=== PATIENT | female | born 1930 | race Hispanic/Latino ===

== ENCOUNTER 2017-03-01 12:21 | Emergency (ER) | payer MEDICARE ==
[2017-03-01 12:21] VITALS: BMI 25.2
[2017-03-01 12:38] VITALS: RESP 18; TEMP 97.9; O2SAT 97
--- NOTE | 2017-03-01 13:30 | ED PDOC ---
Arrival/HPI - General Chief Complaint: Abnormal Labs Time Seen by Provider: 03/01/17 12:41 Historian: Patient - History of Present Illness Narrative History of Present Illness (Text): 03/01/17 13:00 A 86 year old female, whose past medical history includes anemia, rectal bleeding, and CMV, presents to the emergency department after being sent down by same day surgeon for endoscopy after discovering that her potassium levels were 2.9 and for chronic abdominal cramping. The patient reports she has not eaten anything since Tuesday and is very hungry and is slightly light headed due to not eating. The patient denies any dizziness, fever, or any other complaints at this time. She admits to rectal bleeding, but she notes this is a condition that has been going on for the last 5 years, but has reoccurred within the last 3 weeks. PMD: Dr. Peterson Time/Duration: Prior to Arrival Symptom Onset: Sudden Context: Other (same day surgery ) Past Medical History - Provider Review Nursing Documentation Reviewed: Yes - Infectious Disease Hx of Infectious Diseases: None - Tetanus Immunization Tetanus Immunization: Unknown - Cardiac Hx Pacemaker: No - Pulmonary Hx Respiratory Disorders: Yes - Neurological Hx Paralysis: No - Renal Hx Renal Disorder: No - Endocrine/Metabolic Hx Endocrine Disorders: No - Hematological/Oncological Hx Blood Transfusions: Yes Hx Blood Transfusion Reaction: No - Integumentary Hx Dermatological Disorder: No - Musculoskeletal/Rheumatological Hx Musculoskeletal Disorders: No - Gastrointestinal Hx Gastrointestinal Disorders: Yes (RECTAL BLEED) Hx Colitis: Yes (ulcerative) - Genitourinary/Gynecological Hx Genitourinary Disorders: No - Psychiatric Hx Emotional Abuse: No Hx Physical Abuse: No Hx Substance Use: No - Surgical History Hx Orthopedic Surgery: Yes (bilateral wrist, pelvis) Other/Comment: cataract sx - Anesthesia Hx Anesthesia Reactions: No Hx Malignant Hyperthermia: No - Suicidal Assessment Feels Threatened In Home Enviroment: No Family/Social History - Physician Review Nursing Documentation Reviewed: Yes Family/Social History: No Known Family HX Smoking Status: Former Smoker Hx Alcohol Use: Yes (SOCIALLY) Hx Substance Use: No Allergies/Home Meds Allergies/Adverse Reactions: Allergies No Known Allergies Allergy (Verified 03/01/17 12:27) Home Medications: Home Meds Medication Instructions Recorded Confirmed Atorvastatin Calcium [Lipitor] 10 mg PO DAILY 07/15/11 03/02/17 Multivit,Calc,Mins/Iron/Folic 1 tab PO DAILY 07/09/14 03/02/17 [One-A-Day Women's Tablet] Ubidecarenone [Coq-10] 200 mg PO DAILY 05/15/15 03/02/17 Carbamazepine [Carbamazepine] 100 mg PO DAILY 02/28/17 03/02/17 Cyanocobalamin [Vitamin B12] 500 mg PO DAILY 02/28/17 03/02/17 Gabapentin [Neurontin] 300 mg PO PRN PRN 02/28/17 03/02/17 Mesalamine [Delzicol] 1,200 mg PO TID 02/28/17 03/02/17 Omeprazole [Omeprazole] 20 mg PO DAILY 02/28/17 03/01/17 Prednisone [Deltasone] 20 mg PO DAILY 02/28/17 03/02/17 Potassium Chloride [K-Dur 20] 20 meq PO DAILY 03/02/17 03/02/17 Review of Systems - Physician Review All systems were reviewed & negative as marked: Yes - Review of Systems Constitutional: absent: Fevers Gastrointestinal: Abdominal Pain, Other (rectal bleeding ) Neurological: Other (lightheaded). absent: Dizziness Physical Exam - Physical Exam Narrative Physical Exam (Text): 03/01/17 13:30 Head: Atraumatic. Normocephalic. Eyes: PERRL. EOMI. Conjunctivae are not pale. ENT: Mucous membranes are moist and intact. Oropharynx is clear and symmetric. Neck: Supple. Full ROM. No JVD. No lymphadenopathy. Cardiovascular: Regular rate. Regular rhythm. Pulmonary/Chest: No evidence of respiratory distress. Clear to auscultation bilaterally. Abdominal: Soft and non-distended. There is no tenderness. No rebound, guarding, or rigidity. No organomegaly. Good bowel sounds. Back: No CVA tenderness. No midline tenderness. Extremities: No edema. No cyanosis. No clubbing. Full range of motion in all extremities. No calf tenderness. Skin: Skin is warm and dry. No petechiae. No purpura. Neurological: Alert, awake, and oriented. Motor and sensory exam intact. No meningeal signs. Psychiatric: Good eye contact. Normal interaction, affect, and behavior. Denies depression. Vital Signs Temp Pulse Resp BP Pulse Ox 03/01/17 15:39 74 18 115/71 97 03/01/17 13:55 79 18 113/74 97 03/01/17 12:35 97.9 F 89 18 111/70 97 Medical Decision Making ED Course and Treatment: 03/01/17 13:30 Patient's history reviewed with RICHARD Reyes, prior to arrival. Patient noted to be hypokalemic and was sent for evaluation. She is currently CV stable, not hypotensive or tachycardic. She has no abdominal pain on exam. No acute heavy rectal bleeding noted. Treatment plan reviewed with patient. K repeated and reviewed. IV KCl and oral Kdur ordered. Patient with repeat K ordered and reviewed. Prior to being able to re-evaluate the patient, patient eloped from the ED prior to being able to review treatment plan with patient. She was noted to be ambulatory, asymptomatic as per nursing staff. She did not wish to stay for review of her treatment plan and labs. - Lab Interpretations Lab Results: 03/01/17 13:30 03/01/17 16:45 Lab Results 03/01/17 16:45: Potassium 3.2 L 03/01/17 13:30: Sodium 141, Potassium 3.0 L, Chloride 109 H, Carbon Dioxide 25, Anion Gap 10, BUN 10, Creatinine 0.7, Est GFR ( Amer) > 60, Est GFR (Non- Af Amer) > 60, Random Glucose 93, Calcium 8.4, Total Bilirubin 0.2, AST 20, ALT 26, Alkaline Phosphatase 85, Total Protein 6.6, Albumin 3.0, Globulin 3.6, Albumin/Globulin Ratio 0.8 L 03/01/17 13:30: WBC 8.4, RBC 3.41 L, Hgb 9.4 L, Hct 29.4 L, MCV 86.2, MCH 27.6, MCHC 32.0, RDW 15.4 H, Plt Count 416, MPV 8.4, Gran % 51.1, Lymph % (Auto) 41.9 H, [place] % (Auto) 5.6, Eos % (Auto) 0.8 L, Baso % (Auto) 0.6, Gran # 4.27, Lymph # 3.5 H, [place] # 0.5, Eos # 0.1, Baso # 0.05 I have reviewed the lab results: Yes - Medication Orders Current Medication Orders: Discontinued Medications Potassium Chloride (Potassium Chloride 10 Meq/100 Ml) 10 meq in 100 mls @ 50 mls/hr IVPB ONCE ONE Stop: 03/01/17 16:14 Last Admin: 03/01/17 14:51 Dose: 50 mls/hr eMAR Start Stop Document 03/01/17 14:51 HI (Rec: 03/01/17 14:51 [place] [facility] [id number][place] Intravenous Solution Start Date 03/01/17 Start Time 14:51 Potassium Chloride (K-Dur 20 Meq Er Tab) 40 meq PO STAT STA Stop: 03/01/17 15:50 Last Admin: 03/01/17 16:16 Dose: 40 meq - Scribe Statement The provider has reviewed the documentation as recorded by the Jagjit De Luna Provider Scribe Attestation: All medical record entries made by the Scribe were at my direction and personally dictated by me. I have reviewed the chart and agree that the record accurately reflects my personal performance of the history, physical exam, medical decision making, and the department course for this patient. I have also personally directed, reviewed, and agree with the discharge instructions and disposition. Disposition/Present on Arrival - Present on Arrival Any Indicators Present on Arrival: No History of DVT/PE: No History of Uncontrolled Diabetes: No Urinary Catheter: No History of Decub. Ulcer: No History Surgical Site Infection Following: None - Disposition Have Diagnosis and Disposition been Completed?: Yes Diagnosis: Hypokalemia, Anemia Disposition: ELOPEMENT - ER ONLY Disposition Time: 17:00 Patient Plan: Discharge Condition: GOOD Referrals: Matt Peterson MD [Primary Care Provider] - Follow up with primary Forms: [employer] ([place]ian)
[2017-03-01 13:38] LABS: BASO # 0.05 K/mm3 (0.0-2.0); BASO % 0.6 % (0.0-3.0); EOS # 0.1 (0.0-0.7); EOS % 0.8 % (1.5-5.0); GRAN # 4.27 (1.4-6.5); GRAN % 51.1 % (50.0-68.0); HEMATOCRIT 29.4 % (36.0-48.0); LYMPH # 3.5 (1.2-3.4); LYMPH % 41.9 % (22.0-35.0); MEAN CELL VOLUME 86.2 fl (80.0-105.0); MEAN CORPUSCULAR HEMOGLOBIN 27.6 pg (25.0-35.0); MEAN PLATELET VOLUME 8.4 fl (7.0-11.0); MONO # 0.5 (0.1-0.6); MONO % 5.6 % (1.0-6.0); RED CELL DISTRIBUTION WIDTH 15.4 % (11.5-14.5); WHITE BLOOD COUNT 8.4 10^3/ul (4.5-11.0)
[2017-03-01 14:14] LABS: ALB/GLOB RATIO 0.8 (1.1-1.8); ALKALINE PHOSPHATASE 85 U/L (38-126); ALT/SGPT 26 U/L (7-56); AST/SGOT 20 U/L (14-36); BILIRUBIN,TOTAL 0.2 mg/dL (0.2-1.3); BLOOD UREA NITROGEN 10 mg/dL (7-21); CALCIUM 8.4 mg/dL (8.4-10.5); CARBON DIOXIDE 25 mmol/L (21-33); CHLORIDE 109 mmol/L (98-107); GFR AFRICAN-AMERICAN > 60; GLUCOSE,RANDOM 93 mg/dL (70-110); SODIUM 141 mmol/L (132-148); TOTAL PROTEIN 6.6 g/dL (5.8-8.3)
[2017-03-01 15:40] VITALS: BP 115/71; PULSE 74
[2017-03-01] MEDS ORDERED: Potassium Chloride 20 mEq ER Tab PO STA (15:49)
--- NOTE | 2017-03-02 10:35 | CARD ---
APPROVED REPORT EKG Measurement Heart [id number] <Conclusion> Normal sinus rhythm Low voltage QRS Borderline ECG
== END 2017-03-01 18:00 | disposition left against medical advice (07) ==
LOC: ED 12:21
DX: E87.6 Hypokalemia (principal); D64.9 Anemia, unspecified
CPT/HCPCS: 80053; 84132; 85025; 93005; 99282; J3480

== ENCOUNTER 2017-03-02 13:49 | Day surgery (SDC) | payer MEDICARE ==
[2017-03-01 12:21] VITALS: BMI 25.2
[2017-03-02 14:36] VITALS: O2SAT 97
[2017-03-02] MEDS ORDERED: Lidocaine 2% Jelly (30 ml) ONE (14:45)
[2017-03-02 16:03] VITALS: BP 138/74; PULSE 90; RESP 18; TEMP 98
== END 2017-03-02 16:37 | disposition home or self-care (01) ==
LOC: OPSURG 13:49 → ENDO 13:49 → OPSURG 16:37
PROVIDERS: ATTEND Internal Medicine Gastroenterology
DX: K51.011 Ulcerative (chronic) pancolitis with rectal bleeding (principal); K64.8 Other hemorrhoids; K64.4 Residual hemorrhoidal skin tags

== ENCOUNTER 2017-03-22 09:13 | Inpatient (IN) | payer MEDICARE ==
[2017-03-22] MEDS ORDERED: Sodium Chloride 0.9% 1,000 ML IV STA (09:51)
--- NOTE | 2017-03-22 09:57 | ED PDOC ---
Arrival/HPI - General Chief Complaint: Abdominal Pain Time Seen by Provider: 03/22/17 09:21 Historian: Patient - History of Present Illness Narrative History of Present Illness (Text): 03/22/17 09:47 A 86 year old female, whose past medical history includes anemia, rectal bleeding, shingles, and CMV, presents to the emergency department complaining of diarrhea for 2 weeks. Patient reports she was directed by Dr. Shrestha to go to the ER. She describes diarrhea as watery, sometimes brown-colored or bloody. States experiencing nausea whenever going to use the bathroom and yesterday had weakness. Patient denies any fever, abdominal pain, back pain, dysuria, or any other complaints. Also, patient mentions no longer taking steroids. PMD: Dr. Peterson GI: Dr Shrestha Past Medical History - Provider Review Nursing Documentation Reviewed: Yes - Infectious Disease Hx of Infectious Diseases: None - Tetanus Immunization Tetanus Immunization: Unknown - Cardiac Hx Pacemaker: No - Pulmonary Hx Respiratory Disorders: Yes - Neurological Other/Comment: Shigles - Renal Hx Renal Disorder: No - Endocrine/Metabolic Hx Endocrine Disorders: No - Hematological/Oncological Hx Blood Transfusions: Yes Hx Blood Transfusion Reaction: No - Integumentary Hx Dermatological Disorder: No - Musculoskeletal/Rheumatological Hx Musculoskeletal Disorders: No - Gastrointestinal Hx Gastrointestinal Disorders: Yes (RECTAL BLEED) Hx Colitis: Yes (ulcerative) - Genitourinary/Gynecological Hx Genitourinary Disorders: No - Psychiatric Hx Emotional Abuse: No Hx Physical Abuse: No Hx Substance Use: No - Surgical History Hx Orthopedic Surgery: Yes (bilateral wrist, pelvis) Other/Comment: cataract sx - Anesthesia Hx Anesthesia Reactions: No Hx Malignant Hyperthermia: No - Suicidal Assessment Feels Threatened In Home Enviroment: No Family/Social History - Physician Review Nursing Documentation Reviewed: Yes Family/Social History: No Known Family HX Smoking Status: Former Smoker Hx Alcohol Use: Yes (SOCIALLY) Frequency of alcohol use: Socially Hx Substance Use: No Allergies/Home Meds Allergies/Adverse Reactions: Allergies No Known Allergies Allergy (Verified 03/22/17 15:43) Home Medications: Home Meds Medication Instructions Recorded Confirmed Atorvastatin Calcium [Lipitor] 10 mg PO DAILY 07/15/11 03/22/17 Multivit,Calc,Mins/Iron/Folic 1 tab PO DAILY 04/28/15 01/09/18 [One-A-Day Women's Tablet] Ubidecarenone [Coq-10] 200 mg PO DAILY 05/15/15 03/22/17 Carbamazepine [Carbamazepine] 100 mg PO DAILY 02/28/17 03/22/17 Cyanocobalamin [Vitamin B12] 500 mg PO DAILY 02/28/17 03/22/17 Gabapentin [Neurontin] 300 mg PO PRN PRN 02/28/17 03/22/17 Mesalamine [Delzicol] 1,200 mg PO TID 02/28/17 03/22/17 Review of Systems - Physician Review All systems were reviewed & negative as marked: Yes - Review of Systems Constitutional: absent: Fevers Gastrointestinal: Diarrhea (watery, sometimes brown-colored or bloody), Nausea ( only when going to use the bathroom according to patient). absent: Abdominal Pain Genitourinary Female: absent: Dysuria Musculoskeletal: absent: Back Pain Physical Exam Vital Signs Reviewed: Yes Vital Signs Temp Pulse Resp BP Pulse Ox 03/22/17 12:00 78 16 117/60 98 03/22/17 09:22 97.7 F 98 H 18 103/56 L 98 Temperature: Afebrile Blood Pressure: Normal Pulse: Regular Respiratory Rate: Normal Appearance: Positive for: Well-Appearing Pain Distress: None Mental Status: Positive for: Alert and Oriented X 3 - Systems Exam Pupils: Present: PERRL Extroacular Muscles: Present: EOMI Conjunctiva: Present: Normal Mouth: Present: Moist Mucous Membranes Neck: Present: Normal Range of Motion Respiratory/Chest: Present: Clear to Auscultation, Good Air Exchange. No: Respiratory Distress, Accessory Muscle Use Cardiovascular: Present: Regular Rate and Rhythm, Normal S1, S2. No: Murmurs Abdomen: Present: Normal Bowel Sounds. No: Tenderness, Distention, Peritoneal Signs Rectal: Present: Other (guaiac positive). No: Occult Blood, Hemorrhoids Back: Present: Normal Inspection Upper Extremity: Present: Normal Inspection. No: Cyanosis, Edema Lower Extremity: Present: Normal Inspection. No: Edema Neurological: Present: GCS=15, CN II-XII Intact, Speech Normal Skin: Present: Warm, Dry, Normal Color. No: Rashes Psychiatric: Present: Alert, Oriented x 3, Normal Insight, Normal Concentration Medical Decision Making ED Course and Treatment: 03/22/17 09:52 Impression: 86 year old female with watery diarrhea. Physical exam shows patient appears pale; nontender abdomen; rectal exam: guaiac positive, no occult blood, no hemorrhoids (ethics instructor clyde May). Differential Diagnosis included but are not limited to: GI Bleed vs. Ulcer Colitis Plan: -- Labs -- Urinalysis Zofran -- Protonix -- IV Fluids -- Reassess and disposition Prior Visits: Notes and results from previous visits were reviewed. Patient was last seen in the emergency department on 03/01/2017 was sent down by same day surgeon for endoscopy after discovering that her potassium levels were 2.9 and for chronic abdominal cramping. Progress Notes: 03/22/17 12:12. Hgb reviewed and 8. Patient's rectal exam was guaic positive. No hemorrhoid. Licensed Social Worker Raysa. Case was discussed with Dr. Shrestha, GI specialist, who knows patient well and he states he will have to order medications for her ulcerative colitis and possible a blood transfusion. Case was discussed with Dr. Espinoza , Hospitalist, who will admit under her service. - Lab Interpretations Lab Results: 03/22/17 10:10 03/22/17 10:51 Lab Results 03/22/17 10:51: Sodium 138, Potassium 3.5 L, Chloride 106, Carbon Dioxide 24, Anion Gap 11, BUN 9, Creatinine 0.9, Est GFR ( Amer) > 60, Est GFR (Non- Af Amer) 60, Random Glucose 90, Calcium 8.6, Total Bilirubin 0.3, AST 30, ALT 28 , Alkaline Phosphatase 106, Total Protein 6.3, Albumin 3.0, Globulin 3.3, Albumin/Globulin Ratio 0.9 L, Lipase 54 03/22/17 10:10: Blood Type O POSITIVE, Antibody Screen Negative, Crossmatch See Detail, BBK History Checked Patient has bt 03/22/17 10:10: PT 10.9, INR 0.95, APTT 28.0 03/22/17 10:10: WBC 6.6 D, RBC 3.37 L, Hgb 8.9 L, Hct 28.5 L, MCV 84.6, MCH 26.4, MCHC 31.2, RDW 15.8 H, Plt Count 365, MPV 9.1, Gran % 53.7, Lymph % (Auto ) 33.7, [place] % (Auto) 9.8 H, Eos % (Auto) 2.0, Baso % (Auto) 0.8, Gran # 3.57, Lymph # 2.2, [place] # 0.7 H, Eos # 0.1, Baso # 0.05 I have reviewed the lab results: Yes - Medication Orders Current Medication Orders: Atorvastatin Calcium (Lipitor) 10 mg PO DIN [facility] Last Admin: 03/23/17 17:47 Dose: 10 mg Carbamazepine (Tegretol) 100 mg PO BID KARTHIKEYAN PRN Reason: Protocol Last Admin: 03/24/17 09:35 Dose: 100 mg Gabapentin (Neurontin) 600 mg PO BID KARTHIKEYAN PRN Reason: Protocol Last Admin: 03/24/17 09:33 Dose: 600 mg Hydrocortisone Sodium Succinate (Solu-Cortef) 100 mg IVP BID [facility] Last Admin: 03/24/17 09:34 Dose: 100 mg IVP Administration Document 03/24/17 09:34 BIR (Rec: 03/24/17 09:34 BIR [id number]) Charges for Administration # of IVP Administrations 1 Sodium Chloride (Sodium Chloride 0.9%) 1,000 mls @ 75 mls/hr IV .[id number] [facility] Last Admin: 03/23/17 23:38 Dose: 75 mls/hr eMAR Start Stop Document 03/23/17 23:38 FC (Rec: 03/23/17 23:39 FC [id number]) Intravenous Solution Start Date 03/23/17 Start Time 23:39 End Date 03/24/17 Potassium Chloride (Potassium Chloride 10 Meq/100 Ml) 10 meq in 100 mls @ 50 mls/hr IVPB Q2H [facility] Stop: 03/24/17 13:14 Mesalamine (Asacol Hd 800mg) 800 mg PO QID [facility] Last Admin: 03/24/17 09:31 Dose: 800 mg Non-Formulary Medication (Ubidecarenone [Coq-10]) 200 mg PO DAILY [facility] Last Admin: 03/23/17 10:25 Dose: Non-Formulary Medication (Multivit,Calc,Mins/Iron/Folic [One-A-Day Women's Tablet]) 1 tab PO DAILY [facility] Last Admin: 03/23/17 10:23 Dose: Pantoprazole Sodium (Protonix Inj) 40 mg IVP DAILY [facility] Last Admin: 03/24/17 09:34 Dose: 40 mg IVP Administration Document 03/24/17 09:34 BIR (Rec: 03/24/17 09:34 BIR [id number]) Charges for Administration # of IVP Administrations 1 Discontinued Medications Atorvastatin Calcium (Lipitor) 10 mg PO DAILY KARTHIKEYAN Atorvastatin Calcium (Lipitor) 10 mg PO DIN KARTHIKEYAN Carbamazepine (Tegretol) 100 mg PO DAILY KARTHIKEYAN PRN Reason: Protocol Last Admin: 03/23/17 16:18 Dose: Carbamazepine (Tegretol) 100 mg PO DAILY KARTHIKEYAN PRN Reason: Protocol Last Admin: 03/23/17 10:14 Dose: 100 mg Behavioural Document 03/23/17 10:14 RV (Rec: 03/23/17 10:15 RV [facility] [id number]) Maintenance Maintenance Dose Yes Nonmedicinal Nonmedicinal Interventions Therapeutic Communication Behavior Behavior for Medication: Anxiety Re-Assess: Reassess Psych Meds Document 03/23/17 11:14 RV (Rec: 03/23/17 13:43 RV [id number]) Reassess Psych Med Effective Gabapentin (Neurontin) 300 mg PO PRN PRN; Protocol PRN Reason: Pain, moderate (4-7) Gabapentin (Neurontin) 300 mg PO TID PRN; Protocol PRN Reason: Neuralgia Last Admin: 03/22/17 22:26 Dose: 300 mg Gabapentin (Neurontin) 300 mg PO TID PRN; Protocol PRN Reason: Neuralgia Last Admin: 03/23/17 10:24 Dose: 300 mg Behavioural Document 03/23/17 10:24 RV (Rec: 03/23/17 10:24 RV [facility] [id number]) Maintenance Maintenance Dose Yes Nonmedicinal Nonmedicinal Interventions Redirect Therapeutic Communication Activity Behavior Behavior for Medication: Anxiety Re-Assess: Reassess Psych Meds Document 03/23/17 11:24 RV (Rec: 03/23/17 13:43 RV [id number]) Reassess Psych Med Effective Hydrocortisone Sodium Succinate (Solu-Cortef) 100 mg IVP BID [facility] Last Admin: 03/23/17 16:18 Dose: Hydrocortisone Sodium Succinate (Solu-Cortef) 100 mg IVP STAT STA Stop: 03/22/17 14:26 Hydrocortisone Sodium Succinate (Solu-Cortef) 100 mg IVP BID [facility] Last Admin: 03/23/17 16:17 Dose: Sodium Chloride (Sodium Chloride 0.9%) 1,000 mls @ 100 mls/hr IV .Q10H STA Stop: 03/22/17 19:50 Last Admin: 03/22/17 10:03 Dose: 100 mls/hr eMAR Start Stop Document 03/22/17 10:03 [id number] (Rec: 03/22/17 10:04 ANNMARIE BEARD-PC) Intravenous Solution Start Date 03/22/17 Start Time 10:00 End Date 03/22/17 End time 11:00 Total Infusion Time 60 Sodium Chloride (Sodium Chloride 0.9%) 1,000 mls @ 75 mls/hr IV .[id number] [facility] Last Admin: 03/23/17 10:16 Dose: 75 mls/hr eMAR Start Stop Document 03/23/17 10:16 RV (Rec: 03/23/17 10:16 RV [id number]) Intravenous Solution Start Date 03/23/17 Start Time 10:16 Non-Formulary Medication (Multivit,Calc,Mins/Iron/Folic [One-A-Day Women's Tablet]) 1 tab PO DAILY [facility] Last Admin: 03/23/17 10:16 Dose: Non-Formulary Medication (Ubidecarenone [Coq-10]) 200 mg PO DAILY [facility] Last Admin: 03/23/17 10:17 Dose: Ondansetron HCl (Zofran Inj) 4 mg IVP STAT STA Stop: 03/22/17 09:52 Last Admin: 03/22/17 10:04 Dose: 4 mg IVP Administration Document 03/22/17 10:04 ANNMARIE (Rec: 03/22/17 10:04 ANNMARIE LOMAX) Charges for Administration # of IVP Administrations 1 Pantoprazole Sodium (Protonix Inj) 40 mg IVP STAT STA Stop: 03/22/17 09:52 Last Admin: 03/22/17 10:04 Dose: 40 mg IVP Administration Document 03/22/17 10:04 ANNMARIE (Rec: 03/22/17 10:04 ANNMARIE LOMAX) Charges for Administration # of IVP Administrations 1 Pantoprazole Sodium (Protonix Inj) 40 mg IVP DAILY [facility] Last Admin: 03/23/17 16:17 Dose: Pneumococcal Polyvalent Vaccine (Pneumovax 23 Vaccine) 0.5 ml IM .ONCE ONE Stop: 03/22/17 17:28 Potassium Chloride (K-Dur 20 Meq Er Tab) 40 meq PO STAT STA Stop: 03/22/17 12:03 Last Admin: 03/22/17 12:24 Dose: 40 meq Potassium Chloride (K-Dur 20 Meq Er Tab) 40 meq PO STAT STA Stop: 03/23/17 11:31 Last Admin: 03/23/17 11:48 Dose: 40 meq Potassium Chloride (K-Dur 20 Meq Er Tab) 40 meq PO STAT STA Stop: 03/24/17 09:16 Last Admin: 03/24/17 09:32 Dose: 40 meq - Scribe Statement The provider has reviewed the documentation as recorded by the Clyde Lima Provider Scribe Attestation: All medical record entries made by the Elsieibleeanna were at my direction and personally dictated by me. I have reviewed the chart and agree that the record accurately reflects my personal performance of the history, physical exam, medical decision making, and the department course for this patient. I have also personally directed, reviewed, and agree with the discharge instructions and disposition. Disposition/Present on Arrival - Present on Arrival Any Indicators Present on Arrival: No History of DVT/PE: No History of Uncontrolled Diabetes: No Urinary Catheter: No History of Decub. Ulcer: No History Surgical Site Infection Following: None - Disposition Have Diagnosis and Disposition been Completed?: Yes Diagnosis: Rectal bleeding, Anemia Disposition: HOSPITALIZED Disposition Time: 12:12 Patient Plan: Admission Condition: FAIR
[2017-03-22 10:34] LABS: BASO # 0.05 K/mm3 (0.0-2.0); BASO % 0.8 % (0.0-3.0); EOS # 0.1 (0.0-0.7); GRAN # 3.57 (1.4-6.5); GRAN % 53.7 % (50.0-68.0); HEMOGLOBIN 8.9 g/dL (12.0-16.0); LYMPH # 2.2 (1.2-3.4); LYMPH % 33.7 % (22.0-35.0); MEAN CELL VOLUME 84.6 fl (80.0-105.0); MEAN CORPUSCULAR HEMOGLOBIN 26.4 pg (25.0-35.0); MEAN CORPUSCULAR HGB CONC 31.2 g/dl (31.0-37.0); MEAN PLATELET VOLUME 9.1 fl (7.0-11.0); MONO # 0.7 (0.1-0.6); MONO % 9.8 % (1.0-6.0); RBC 3.37 10^6/uL (3.5-6.1); RED CELL DISTRIBUTION WIDTH 15.8 % (11.5-14.5); WHITE BLOOD COUNT 6.6 10^3/ul (4.5-11.0)
[2017-03-22 10:48] LABS: INR 0.95 (0.93-1.08); PROTHROMBIN TIME 10.9 SECONDS (9.4-12.5)
[2017-03-22 11:17] LABS: ALB/GLOB RATIO 0.9 (1.1-1.8); ALT/SGPT 28 U/L (7-56); AST/SGOT 30 U/L (14-36); BLOOD UREA NITROGEN 9 mg/dL (7-21); CALCIUM 8.6 mg/dL (8.4-10.5); GFR AFRICAN-AMERICAN > 60; GFR NON-AFRICAN AMERICAN 60; LIPASE 54 U/L (23-300)
[2017-03-22] MEDS ORDERED: Potassium Chloride 20 mEq ER Tab PO STA (12:02)
[2017-03-22] MEDS: Sodium Chloride 0.9% 1,000 ML IV SCH (13:17)
[2017-03-22 13:37] LABS: URINE BILIRUBIN NEGATIVE (NEGATIVE); URINE BLOOD TRACE-INTACT (NEGATIVE); URINE GLUCOSE (UA) NEGATIVE (NEGATIVE); URINE LEUKOCYTE ESTERASE LARGE Leu/uL (NEGATIVE); URINE NITRATE NEGATIVE (NEGATIVE); URINE PROTEIN NEGATIVE mg/dL (<30 mg/dL); URINE UROBILINOGEN 0.2 E.U./dL (<1 E.U./dL)
[2017-03-22 13:39] LABS: URINE APPEARANCE SL CLOUDY (CLEAR); URINE COLOR YELLOW (YELLOW)
[2017-03-22 13:50] LABS: URINE BACTERIA FEW (NEG); URINE RBC 0 - 2 /hpf (0-2); URINE WBC 20 - 25 /hpf (0-6)
[2017-03-22] MEDS ORDERED: MESALAMINE 1200 MG PO SCH ×2 (14:00)
--- NOTE | 2017-03-22 14:15 | CP.PCM.HP ---
<Alhaji Schwarz - Last Filed: 03/22/17 14:09> History of Present Illness - History of Present Illness History of Present Illness: CC: diarrhea, BRBPR, fatigue Pt is an 86 yo female with PMH of ulcerative colitis, c. diff colitis, CMV colitis, PNA, HLD, postherpetic neuralgia presents to ED as instructed by Dr. Shrestha due to a 2 week history of increasing diarrhea, fatigue and BRBPR. Pt states that she chronically has diarrhea and has multiple episodes a day, requiring her to wear adult diapers. Pt states that recently she has had drops and clots of blood in her diarrhea as well, which has also occurred in the past. Pt admits to some nausea and abdominal pain, but is relieved when she has a bowel movement. Pt complains of overall weakness and fatigue over the last 3 months with unintentional 10 lbs weight loss. Pt admits to chills, but denies CP , SOB, fever, constipation, MENENDEZ, or dizziness. PMD: [place] PMH: ulcerative colitis, c. diff colitis, CMV colitis, PNA, HLD, postherpetic neuralgia PSH: B/L wrist surgery, cataracts All: NKDA FHx: Colon CA SH: Denies tobacco, EtOH, and illicit drug use Medications: Reviewed as per MAR Present on Admission - Present on Admission Any Indicators Present on Admission: No Review of Systems - Review of Systems Review of Systems: 12 point ROS reviewed and is negative other than what is stated in HPI. Past Patient History - Infectious Disease Hx of Infectious Diseases: None - Tetanus Immunizations Tetanus Immunization: Unknown - Past Social History Smoking Status: Former Smoker - CARDIAC Hx Pacemaker: No - PULMONARY Hx Respiratory Disorders: Yes - NEUROLOGICAL Other/Comment: Shigles - RENAL Hx Chronic Kidney Disease: No - ENDOCRINE/METABOLIC Hx Endocrine Disorders: No - HEMATOLOGICAL/ONCOLOGICAL Hx Blood Transfusions: Yes Hx Blood Transfusion Reaction: No - INTEGUMENTARY Hx Dermatological Problems: No - MUSCULOSKELETAL/RHEUMATOLOGICAL Hx Musculoskeletal Disorders: No - GASTROINTESTINAL Hx Gastrointestinal Disorders: Yes (RECTAL BLEED) Hx Colitis: Yes (ulcerative) - GENITOURINARY/GYNECOLOGICAL Hx Genitourinary Disorders: No - PSYCHIATRIC Hx Emotional Abuse: No Hx Physical Abuse: No Hx Substance Use: No - SURGICAL HISTORY Hx Orthopedic Surgery: Yes (bilateral wrist, pelvis) Other/Comment: cataract sx - ANESTHESIA Hx Anesthesia Reactions: No Hx Malignant Hyperthermia: No Meds Allergies/Adverse Reactions: Allergies Allergy/AdvReac Type Severity Reaction Status Date / Time No Known Allergies Allergy Verified 03/22/17 15:43 Physical Exam - Constitutional Appears: No Acute Distress - Head Exam Head Exam: NORMAL INSPECTION - Eye Exam Eye Exam: Normal appearance - ENT Exam ENT Exam: Normal Exam - Neck Exam Neck exam: Positive for: Normal Inspection - Respiratory Exam Respiratory Exam: Clear to Auscultation Bilateral. absent: Rales, Rhonchi, Wheezes - Cardiovascular Exam Cardiovascular Exam: RRR, +S1, +S2. absent: Diastolic murmur, Gallop, Rubs, Systolic Murmur - GI/Abdominal Exam GI & Abdominal Exam: Soft. absent: Distended, Guarding, Rebound, Tenderness - Extremities Exam Extremities exam: Positive for: normal inspection - Back Exam Back exam: NORMAL INSPECTION - Neurological Exam Neurological exam: Alert, Oriented x3 - Psychiatric Exam Psychiatric exam: Normal Affect, Normal Mood - Skin Skin Exam: Dry, Intact, Normal Color, Warm Results - Vital Signs Recent Vital Signs: Last Vital Signs Temp 97.7 F 03/22/17 09:22 Pulse 78 03/22/17 12:00 Resp 16 03/22/17 12:00 BP 117/60 03/22/17 12:00 Pulse Ox 98 03/22/17 12:00 - Labs Result Diagrams: 03/22/17 10:10 03/22/17 10:51 Labs: Laboratory Results - last 24 hr 03/22/17 13:33 Urine Color Yellow Urine Appearance Sl cloudy Urine pH 6.0 Ur Specific [place] 1.010 Urine Protein Negative Urine Glucose (UA) Negative Urine Ketones Negative Urine Blood Trace-intact H Urine Nitrate Negative Urine Bilirubin Negative Urine Urobilinogen 0.2 Ur Leukocyte Esterase Large H Urine RBC 0 - 2 Urine WBC 20 - 25 Ur Epithelial Cells 1 - 3 Urine Bacteria Few Assessment & Plan - Assessment and Plan (Free Text) Assessment: Pt is an 86 yo F with PMH of ulcerative colitis, c. diff colitis, CMV colitis, PNA, HLD, postherpetic neuralgia admitted for evaluation and treatment for anemia possibly 2/2 ulcerative colitis. Plan: 1. Anemia - Hgb 8.9 - Likely 2/2 chronic disease - Cont to monitor, transfuse to keep Hgb > 7 - Type and screen, patient consented 2. Colitis - H/o CMV colitis, ulcerative colitis, c. diff colitis - Cont home medications - Stool c. diff and cultures ordered - GI consulted - ID consulted - NPO - IVF 3. HLD - Cont Lipitor 4. H/o HSV, postherpetic neuralgia - Neuro consulted - Cont carbemazepine, neurontin GI/DVT PPx - Protonix - SCDs Pt seen and discussed in detail with Dr. Espinoza. Omero Schwarz, PGY1 <Demetris Espinoza - Last Filed: 03/22/17 17:59> Results - Vital Signs Recent Vital Signs: Last Vital Signs Temp 97.7 F 03/22/17 16:52 Pulse 78 03/22/17 16:52 Resp 16 03/22/17 16:52 BP 117/60 03/22/17 16:52 Pulse Ox 98 03/22/17 12:00 - Labs Result Diagrams: 03/22/17 10:10 03/22/17 10:51 Labs: Laboratory Results - last 24 hr 03/22/17 13:33 Urine Color Yellow Urine Appearance Sl cloudy Urine pH 6.0 Ur Specific [place] 1.010 Urine Protein Negative Urine Glucose (UA) Negative Urine Ketones Negative Urine Blood Trace-intact H Urine Nitrate Negative Urine Bilirubin Negative Urine Urobilinogen 0.2 Ur Leukocyte Esterase Large H Urine RBC 0 - 2 Urine WBC 20 - 25 Ur Epithelial Cells 1 - 3 Urine Bacteria Few Attending/Attestation - Attestation I have personally seen and examined this patient.: Yes I have fully participated in the care of the patient.: Yes I have reviewed all pertinent clinical information: Yes Notes (Text): 03/22/17 17:55 attending note; Patient seen and examined with resident in ER. patient is a 86-year-old female with past medical history of ulcerative colitis , c. diff colitis, CMV colitis, ammonia, hyperlipidemia, shingles,,postherpetic neuralgia is getting admitted for increasing diarrhea and rectal bleeding. Patient was evaluated by GI Dr. Shrestha yesterday. Patient is also complaining of generalized weakness and shortness of breath on exertion. Hemoglobin showed 8.9. 1 unit of PRBC transfusion ordered. Ulcerative colitis; started on IV hydrocortisone. Needs outpatient Remicade. continue to monitor for diarrhea closely. Monitor for GI bleed closely. Started on liquid diet. Case discussed with Dr. Shrestha in detail. With a history of CMV colitis and C. difficile colitis; needs strong immunosuppressive therapy as outpatient. ID evaluation requested. Patient with a history of shingles; currently no active lesions. Neurology evaluation before starting Remicade. Case discussed with GI in detail. Upon discharge the patient will follow-up with PMD .
[2017-03-22 17:27] VITALS: BMI 25.0
[2017-03-22] MEDS ORDERED: Pneumococcal 23-Valent Vaccine IM ONE (17:27)
[2017-03-22] MEDS ORDERED: Influenza Vaccine 60 mcg/0.5 mL SYR (4YR UP) IM ONE (17:27)
--- NOTE | 2017-03-22 17:53 | CON ---
DATE: 03/22/2017 CHIEF COMPLAINT: History of postherpetic neuralgia in the face. HISTORY OF PRESENT ILLNESS: This is an 86-year-old woman with history of ulcerative colitis, C. diff colitis, CMV colitis, PNA, hyperlipidemia, and postherpetic neuralgia on the left side of face. She came to the hospital for increased diarrhea, fatigue, and bleeding per rectum and chronic diarrhea multiple episodes, where she was needed to wear adult diapers, had recent drops in her hemoglobin and unintentional loss of weight, so therefore is being evaluated for GI, who was consulted for postherpetic neuralgia. It is okay for her to be on Remicade. She is going to continue on her home medications for her postherpetic neuralgia in terms of gabapentin 600 mg p.o. b.i.d. and Tegretol 100 mg p.o. b.i.d. PAST MEDICAL HISTORY: History of ulcerative colitis, C. diff colitis, CMV colitis, PNA, pneumonia, hyperlipidemia, postherpetic neuralgia, anemia. REVIEW OF SYSTEMS: A 14-point review of systems is negative except as per the HPI. MEDICATIONS: Reviewed by nursing reconciliation sheet. ALLERGIES: NO KNOWN DRUG ALLERGIES. SOCIAL HISTORY: No illicit drug use, smoking, or EtOH abuse. FAMILY HISTORY: Noncontributory. PHYSICAL EXAMINATION: VITAL SIGNS: Temperature 97.7, pulse rate 78, blood pressure 117/60, respiratory rate of 16, and oxygen saturation 98% on room air. GENERAL: The patient is sitting up in bed, in no acute distress. HEENT: Head is atraumatic and normocephalic. PERRLA. Extraocular muscles intact. NECK: Supple. No JVD. No adenopathy noted. LUNGS: Clear to auscultation. No adventitious sounds. HEART: S1 and S2. Normal rate and rhythm. No murmurs, rubs, or gallops. ABDOMEN: Soft, nontender, nondistended. Bowel sounds present. EXTREMITIES: No clubbing, no cyanosis. Peripheral pulses 2+ felt bilaterally. NEUROLOGIC: The patient is alert and oriented to person, place, month and year. Speech is fluent without errors. Cranial nerves II through XII intact. Motor exam; moves all extremities equally. Toes are downgoing bilaterally. Sensory exam: Light touch, pinprick, proprioception, and vibration intact. DTRs are 1+ throughout. LABORATORY DATA: Sodium is 138, potassium 3.5, chloride 106, carbon dioxide 24, BUN 11, creatine 0.9, and random glucose of 90. ASSESSMENT: This is an 86-year-old woman with history of ulcerative colitis, Clostridium difficile colitis, Cytomegalovirus colitis, pneumonia, hyperlipidemia, postherpetic neuralgia. Admitted for evaluation and treatment for anemia possibly secondary to ulcerative colitis. I was consulted for history of postherpetic neuralgia. PLAN: 1. At this time, her postherpetic neuralgia is stable and continue with carbamazepine 100 mg p.o. b.i.d., and Neurontin 600 mg p.o. b.i.d., for neuropathic relief. 2. She is okay for Remicade from a Neuro standpoint for her underlying colitis and continue to monitor her electrolytes and correct accordingly. No further neurological workup needed at this time. Raffaele Raines MD
--- NOTE | 2017-03-22 17:59 | CP.PCM.CON ---
<Tiana Mas - Last Filed: 03/22/17 18:00> History of Present Illness - History of Present Illness History of Present Illness: Seen and examined at the bedside in the ER, chart reviewed. Request for GI consult is acute exacerbation of ulcerative colitis. HPI: This is a 86-year-old female with a long history of ulcerative colitis, CMV , treated with antibiotics, herpes zoster. This patient has been on melasamine and Mp6 for years , was doing well for a while, but the cost of the medication was becoming to much, the patient started becoming noncompliant with taking the medications. This patient was also on Remicade infusion and doing well. She then had contracted herpes zoster and Remicade treatments and medications were discontinued for the time being. The patient was seen in our office yesterday, earlier that morning by her PCP and had complaints of feeling weak, tired and still having multiple episodes of diarrhea. Occasionally noticing blood, came to our office. She experiences nausea only when she has to have a bowel movement. Denies any vomiting or hematemesis. Her appetite has been poor but she is making sure to drink Pedialyte. A few weeks ago the patient was seen in our office with same complaints, stool for C. difficile was done and was negative. She then was scheduled for a flexible sigmoidoscopy, on the day of procedure labs were done and the patient was found to be hypokalemic. She was sent to the emergency room for potassium replacement. The patient return the next day for flex sigmoid evaluation. During this time she was given outpatient treatment with oral steroids. The patient had a flexible sigmoidoscopy on March 02, 2017 the sigmoidscope was advanced to the sigmoid at 20 cm. Was found to have inflammation/congestion erosion and erythema with friability and granulation that was continuous and with circumferential pattern from rectum to the sigmoid, graded as MALTS grade 3, and also found to have internal and external hemorrhoids. Colon biopsy was obtained which showed chronic active colitis with ulceration and reactive epithelial changes but with no dysplasia. CMV pathology was also sent and that was negative. Stool for C. difficile was also obtained during endoscope and was reported to be negative. The patient yesterday was recommended to go to the emergency room but the had to make arrangements for a station operator for her pets. The patient today does complain of feeling weak and tired, very sleepy most of the time and is still having active diarrhea, last bowel movement noted with blood was yesterday. No complaints of shortness of breath or chest pain. On admission her hemoglobin was reported to be 8.9. She does appear weak and pale. Past medical history: Ulcerative colitis, history of CMV, treated with inpatient , Clostridium difficile colitis, hypercholesterolemia, pneumonia, postherpetic neuralgia Surgical history: Cataract surgery and bilateral wrist surgery Social history: Denies EtOH, smoking or recreational drug use Family history: Colon cancer Medications: Reviewed as per MAR Allergies: No known drug allergies ROS: Systems reviewed positive finding see HPI Past Patient History - Infectious Disease Hx of Infectious Diseases: None - Tetanus Immunizations Tetanus Immunization: Unknown - Past Social History Smoking Status: Former Smoker - CARDIAC Hx Pacemaker: No - PULMONARY Hx Respiratory Disorders: Yes - NEUROLOGICAL Other/Comment: Shigles - RENAL Hx Chronic Kidney Disease: No - ENDOCRINE/METABOLIC Hx Endocrine Disorders: No - HEMATOLOGICAL/ONCOLOGICAL Hx Blood Transfusions: Yes Hx Blood Transfusion Reaction: No - INTEGUMENTARY Hx Dermatological Problems: No - MUSCULOSKELETAL/RHEUMATOLOGICAL Hx Musculoskeletal Disorders: No - GASTROINTESTINAL Hx Gastrointestinal Disorders: Yes (RECTAL BLEED) Hx Colitis: Yes (ulcerative) - GENITOURINARY/GYNECOLOGICAL Hx Genitourinary Disorders: No - PSYCHIATRIC Hx Emotional Abuse: No Hx Physical Abuse: No Hx Substance Use: No - SURGICAL HISTORY Hx Orthopedic Surgery: Yes (bilateral wrist, pelvis) Other/Comment: cataract sx - ANESTHESIA Hx Anesthesia Reactions: No Hx Malignant Hyperthermia: No Meds Allergies/Adverse Reactions: Allergies Allergy/AdvReac Type Severity Reaction Status Date / Time No Known Allergies Allergy Verified 03/22/17 15:43 - Medications Medications: Current Medications Atorvastatin Calcium (Lipitor) 10 mg PO DAILY [facility] Carbamazepine (Tegretol) 100 mg PO DAILY [facility] PRN Reason: Protocol Gabapentin (Neurontin) 300 mg PO TID PRN; Protocol PRN Reason: Neuralgia Hydrocortisone Sodium Succinate (Solu-Cortef) 100 mg IVP BID [facility] Sodium Chloride (Sodium Chloride 0.9%) 1,000 mls @ 100 mls/hr IV .Q10H STA Stop: 03/22/17 19:50 Last Admin: 03/22/17 10:03 Dose: 100 mls/hr Sodium Chloride (Sodium Chloride 0.9%) 1,000 mls @ 75 mls/hr IV .[id number] [facility] Last Admin: 03/22/17 13:17 Dose: 75 mls/hr Mesalamine (Asacol Hd 800mg) 800 mg PO QID [facility] Non-Formulary Medication (Multivit,Calc,Mins/Iron/Folic [One-A-Day Women's Tablet]) 1 tab PO DAILY [facility] Non-Formulary Medication (Ubidecarenone [Coq-10]) 200 mg PO DAILY [facility] Pantoprazole Sodium (Protonix Inj) 40 mg IVP DAILY [facility] Physical Exam - Constitutional Appears: No Acute Distress Additional comments: fatigue - Eye Exam Eye Exam: Normal appearance. absent: Scleral icterus - ENT Exam ENT Exam: Mucous Membranes Moist - Neck Exam Neck exam: Positive for: Normal Inspection - Respiratory Exam Respiratory Exam: Clear to Auscultation Bilateral, NORMAL BREATHING PATTERN. absent: Respiratory Distress - Cardiovascular Exam Cardiovascular Exam: +S1, +S2 - GI/Abdominal Exam GI & Abdominal Exam: Soft. absent: Guarding, Normal Bowel Sounds, Organomegaly , Rebound, Tenderness - Extremities Exam Extremities exam: Positive for: pedal pulses present. Negative for: calf tenderness, pedal edema - Neurological Exam Neurological exam: Alert, Oriented x3 - Psychiatric Exam Psychiatric exam: Normal Mood - Skin Skin Exam: Dry, Pallor, Warm Results - Vital Signs Recent Vital Signs: Last Vital Signs Temp 97.7 F 03/22/17 09:22 Pulse 78 03/22/17 12:00 Resp 16 03/22/17 12:00 BP 117/60 03/22/17 12:00 Pulse Ox 98 03/22/17 12:00 - Labs Result Diagrams: 03/22/17 10:10 03/22/17 10:51 Labs: Laboratory Results - last 24 hr 03/22/17 13:33 Urine Color Yellow Urine Appearance Sl cloudy Urine pH 6.0 Ur Specific [place] 1.010 Urine Protein Negative Urine Glucose (UA) Negative Urine Ketones Negative Urine Blood Trace-intact H Urine Nitrate Negative Urine Bilirubin Negative Urine Urobilinogen 0.2 Ur Leukocyte Esterase Large H Urine RBC 0 - 2 Urine WBC 20 - 25 Ur Epithelial Cells 1 - 3 Urine Bacteria Few Assessment & Plan - Assessment and Plan (Free Text) Assessment: Assessment: Acute exacerbation of ulcerative colitis moderate to severe History of CMV, recent flexible sigmoidoscopy sigmoidoscopy on 03/02/2017, CMV biopsies negative Anemia Dehydration History of C. difficile Plan: Pending blood transfusion Monitor H&H and for overt GI bleed Start Melasamine 800 mg QID start on IV steroid therapy as per medical team, Dr. Shrestha discuss w/ hospitalist clear liquid diet stool cdiff monitor electrolytes urine culture PPI DVT prophylaxsis: SCDs Request evaluation with ID and neurology Thank you for this consult and for allowing us to participate in your patient's care, further recommendations based upon clinical course. Seen and discussed with Dr. Shrestha. <Darcy Shrestha V - Last Filed: 03/22/17 20:05> Meds - Medications Medications: Current Medications Atorvastatin Calcium (Lipitor) 10 mg PO DAILY [facility] Carbamazepine (Tegretol) 100 mg PO DAILY [facility] PRN Reason: Protocol Gabapentin (Neurontin) 300 mg PO TID PRN; Protocol PRN Reason: Neuralgia Hydrocortisone Sodium Succinate (Solu-Cortef) 100 mg IVP BID [facility] Last Admin: 03/22/17 18:16 Dose: 100 mg Sodium Chloride (Sodium Chloride 0.9%) 1,000 mls @ 75 mls/hr IV .[id number] [facility] Last Admin: 03/22/17 13:17 Dose: 75 mls/hr Mesalamine (Asacol Hd 800mg) 800 mg PO QID [facility] Last Admin: 03/22/17 18:17 Dose: 800 mg Non-Formulary Medication (Multivit,Calc,Mins/Iron/Folic [One-A-Day Women's Tablet]) 1 tab PO DAILY [facility] Non-Formulary Medication (Ubidecarenone [Coq-10]) 200 mg PO DAILY [facility] Pantoprazole Sodium (Protonix Inj) 40 mg IVP DAILY [facility] Results - Vital Signs Recent Vital Signs: Last Vital Signs Temp 98 F 03/22/17 18:43 Pulse 92 H 03/22/17 18:43 Resp 18 03/22/17 18:43 BP 100/64 03/22/17 18:43 Pulse Ox 95 03/22/17 16:00 - Labs Result Diagrams: 03/22/17 10:10 03/22/17 10:51 Labs: Laboratory Results - last 24 hr 03/22/17 13:33 Urine Color Yellow Urine Appearance Sl cloudy Urine pH 6.0 Ur Specific [place] 1.010 Urine Protein Negative Urine Glucose (UA) Negative Urine Ketones Negative Urine Blood Trace-intact H Urine Nitrate Negative Urine Bilirubin Negative Urine Urobilinogen 0.2 Ur Leukocyte Esterase Large H Urine RBC 0 - 2 Urine WBC 20 - 25 Ur Epithelial Cells 1 - 3 Urine Bacteria Few Attending/Attestation - Attestation I have personally seen and examined this patient.: Yes I have fully participated in the care of the patient.: Yes I have reviewed all pertinent clinical information: Yes Notes (Text): This is an addendum to GI progress report dictated by Tiana Mas APN.The patient was seen and examined earlier. Medical records, lab studies, imagings were reviewed. Last 24 hours events reviewed. Agreed with the above treatment plan as outlined in Tiana Mas APN's notes the with the addition of the following patient patient still complains of rare episodes of bleeding per rectum Several episodes of diarrhea Feels weak Abdomen soft no tenderness Discussed with restart the patient on IV steroids,continue mesalamine. Also check stool for C. difficile Discussed with Dr. bobo infectious disease specialist Re: CMV colitis and also Herpes Zoster in the past We also discussed with the neurologist regarding the long-term management with biological therapy in this patient 03/22/17 19:59 03/22/17 20:04
[2017-03-22] MEDS: Mesalamine 800 mg DR Tab PO SCH ×2 (18:17→21:53)
--- NOTE | 2017-03-22 19:41 | CP.PCM.CON ---
History of Present Illness - History of Present Illness History of Present Illness: Infectious Disease Consultation: March 22, 2017 86 yo female known to me from the past with increasing fatigue, diarrhea, and BRBPR. The patient has severe Ulcerative Colitis history and was on Remicade for treatment. Remicade was stopped recently due to Herpes Zoster outbreak. Patient has had bloody bowel movements and stomach pains over the past 2 weeks. 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 Biopsies done recently of the colon did not show positive tests for CMV. The patient was on Steroids, 6-MP, and Remicade until the past few months. The patient stopped 6-MP due to hair loss. Remicade stopped due to Herpes Zoster outbreak. PMHx: Ulcerative Colitis, CMV colitis, Cataracts, HLD, postherpetic neuraglia. PSHx: bilateral wrist repair, pelvic repair, cataract surgery. Allergies: NKDA Social Hx: No EtOH or illicit drug use history. Former smoker Active Medications Atorvastatin Calcium (Lipitor) 10 mg PO DAILY [facility] Carbamazepine (Tegretol) 100 mg PO DAILY [facility] PRN Reason: Protocol Gabapentin (Neurontin) 300 mg PO TID PRN; Protocol PRN Reason: Neuralgia Hydrocortisone Sodium Succinate (Solu-Cortef) 100 mg IVP BID [facility] Last Admin: 03/22/17 18:16 Dose: 100 mg Sodium Chloride (Sodium Chloride 0.9%) 1,000 mls @ 100 mls/hr IV .Q10H STA Stop: 03/22/17 19:50 Last Admin: 03/22/17 10:03 Dose: 100 mls/hr Sodium Chloride (Sodium Chloride 0.9%) 1,000 mls @ 75 mls/hr IV .[id number] [facility] Last Admin: 03/22/17 13:17 Dose: 75 mls/hr Mesalamine (Asacol Hd 800mg) 800 mg PO QID [facility] Last Admin: 03/22/17 18:17 Dose: 800 mg Non-Formulary Medication (Multivit,Calc,Mins/Iron/Folic [One-A-Day Women's Tablet]) 1 tab PO DAILY [facility] Non-Formulary Medication (Ubidecarenone [Coq-10]) 200 mg PO DAILY [facility] Pantoprazole Sodium (Protonix Inj) 40 mg IVP DAILY [facility] Family Hx: none given ROS: no fevers, chills, nausea, vomiting, diarrhea, headaches, dizziness, chest pain , melena, hematuria, hematemesis, hematochezia, depression, anxiety. No vision loss, hearing loss, loss of consciousness. Patient with abdominal pain, bloating, flatulence, BRBPR. Past Patient History - Infectious Disease Hx of Infectious Diseases: None - Tetanus Immunizations Tetanus Immunization: Unknown - Past Social History Smoking Status: Former Smoker - CARDIAC Hx Pacemaker: No - PULMONARY Hx Respiratory Disorders: Yes - NEUROLOGICAL Other/Comment: Shigles - HEENT Hx HEENT Problems: Yes Hx Cataracts: Yes - RENAL Hx Chronic Kidney Disease: No - ENDOCRINE/METABOLIC Hx Endocrine Disorders: No - HEMATOLOGICAL/ONCOLOGICAL Hx Blood Transfusions: Yes Hx Blood Transfusion Reaction: No - INTEGUMENTARY Hx Dermatological Problems: No - MUSCULOSKELETAL/RHEUMATOLOGICAL Hx Musculoskeletal Disorders: No - GASTROINTESTINAL Hx Gastrointestinal Disorders: Yes (RECTAL BLEED) Hx Colitis: Yes (ulcerative) - GENITOURINARY/GYNECOLOGICAL Hx Genitourinary Disorders: No - PSYCHIATRIC Hx Emotional Abuse: No Hx Physical Abuse: No Hx Substance Use: No - SURGICAL HISTORY Hx Orthopedic Surgery: Yes (bilateral wrist, pelvis) Other/Comment: cataract sx - ANESTHESIA Hx Anesthesia Reactions: No Hx Malignant Hyperthermia: No Meds Allergies/Adverse Reactions: Allergies Allergy/AdvReac Type Severity Reaction Status Date / Time No Known Allergies Allergy Verified 03/22/17 15:43 - Medications Medications: Current Medications Atorvastatin Calcium (Lipitor) 10 mg PO DAILY [facility] Carbamazepine (Tegretol) 100 mg PO DAILY [facility] PRN Reason: Protocol Gabapentin (Neurontin) 300 mg PO TID PRN; Protocol PRN Reason: Neuralgia Hydrocortisone Sodium Succinate (Solu-Cortef) 100 mg IVP BID [facility] Last Admin: 03/22/17 18:16 Dose: 100 mg Sodium Chloride (Sodium Chloride 0.9%) 1,000 mls @ 100 mls/hr IV .Q10H STA Stop: 03/22/17 19:50 Last Admin: 03/22/17 10:03 Dose: 100 mls/hr Sodium Chloride (Sodium Chloride 0.9%) 1,000 mls @ 75 mls/hr IV .[id number] [facility] Last Admin: 03/22/17 13:17 Dose: 75 mls/hr Mesalamine (Asacol Hd 800mg) 800 mg PO QID [facility] Last Admin: 03/22/17 18:17 Dose: 800 mg Non-Formulary Medication (Multivit,Calc,Mins/Iron/Folic [One-A-Day Women's Tablet]) 1 tab PO DAILY [facility] Non-Formulary Medication (Ubidecarenone [Coq-10]) 200 mg PO DAILY [facility] Pantoprazole Sodium (Protonix Inj) 40 mg IVP DAILY [facility] Physical Exam - Constitutional Appears: No Acute Distress, Chronically Ill - Head Exam Head Exam: ATRAUMATIC, NORMOCEPHALIC - Eye Exam Eye Exam: EOMI, PERRL Pupil Exam: NORMAL ACCOMODATION, PERRL - ENT Exam ENT Exam: Mucous Membranes Moist, Normal External Ear Exam, TM's Normal Bilaterally - Respiratory Exam Respiratory Exam: Clear to Auscultation Bilateral, NORMAL BREATHING PATTERN. absent: Rales, Rhonchi, Wheezes - Cardiovascular Exam Cardiovascular Exam: REGULAR RHYTHM, RRR, +S1, +S2 - GI/Abdominal Exam GI & Abdominal Exam: Normal Bowel Sounds, Soft. absent: Distended, Tenderness - Extremities Exam Extremities exam: Positive for: full ROM, normal inspection - Neurological Exam Neurological exam: Alert, CN II-XII Intact, Oriented x3 - Psychiatric Exam Psychiatric exam: Normal Affect, Normal Mood - Skin Skin Exam: Intact, Normal Color Results - Vital Signs Recent Vital Signs: Last Vital Signs Temp 98 F 03/22/17 18:43 Pulse 92 H 03/22/17 18:43 Resp 18 03/22/17 18:43 BP 100/64 03/22/17 18:43 Pulse Ox 95 03/22/17 16:00 - Labs Result Diagrams: 03/22/17 10:10 03/22/17 10:51 Labs: Laboratory Results - last 24 hr 03/22/17 13:33 Urine Color Yellow Urine Appearance Sl cloudy Urine pH 6.0 Ur Specific [place] 1.010 Urine Protein Negative Urine Glucose (UA) Negative Urine Ketones Negative Urine Blood Trace-intact H Urine Nitrate Negative Urine Bilirubin Negative Urine Urobilinogen 0.2 Ur Leukocyte Esterase Large H Urine RBC 0 - 2 Urine WBC 20 - 25 Ur Epithelial Cells 1 - 3 Urine Bacteria Few Assessment & Plan - Assessment and Plan (Free Text) Assessment: 86 yo female with history of severe ulcerative colitis that was controlled only with use of Remicade with 6-MP and Steroids. Due to the patient having hair loss, she stopped taking the 6-MP. Remicade was stopped due to Herpes Zoster flare up. The patient has anemia. 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 Dr. Shrestha stated that a recent colon biopsy did not show CMV disease. There are few options for CMV control. One can consider gancyclovir prophylatic treatment for CMV but there is not a large amount of research regarding ulcerative colitis and CMV prevention/treatment. Regarding Herpes Zoster, the patient has two options. The first option is lifelong Valtrex therapy. The other option is preemptive treatment with Valtrex while on Remicade treatment. Preemptive therapy would be the prefered choice. Case discussed with Dr. Shrestha. Supportive care. Thank you for allowing me to partipate in the care of the patient, we will follow with you.
--- NOTE | 2017-03-22 21:45 | CARD ---
APPROVED REPORT EKG Measurement Heart [id number] <Conclusion> Normal sinus rhythm Normal ECG
[2017-03-23 09:54] LABS: HEMOGLOBIN 9.4 g/dL (12.0-16.0); MEAN CELL VOLUME 85.1 fl (80.0-105.0); MEAN CORPUSCULAR HEMOGLOBIN 26.9 pg (25.0-35.0); MEAN CORPUSCULAR HGB CONC 31.5 g/dl (31.0-37.0); MEAN PLATELET VOLUME 8.4 fl (7.0-11.0); RBC 3.5 10^6/uL (3.5-6.1); RED CELL DISTRIBUTION WIDTH 15.4 % (11.5-14.5); WHITE BLOOD COUNT 8.1 10^3/ul (4.5-11.0)
[2017-03-23] MEDS ORDERED: FOLIC PO SCH ×2 (10:00)
[2017-03-23] MEDS ORDERED: IRON PO SCH ×2 (10:00)
[2017-03-23] MEDS ORDERED: [UNRECOGNIZED DRUG - OTHER] PO SCH ×2 (10:00)
[2017-03-23] MEDS ORDERED: Non Formulary Medication (Ubidecarenone [Coq-10] 200 MG) PO SCH ×2 (10:00)
[2017-03-23] MEDS ORDERED: MULTIVIT CALC MINS PO SCH ×2 (10:00)
[2017-03-23 10:15] VITALS: RESP 20
[2017-03-23] MEDS: Mesalamine 800 mg DR Tab PO SCH ×4 (10:15→21:05)
[2017-03-23] MEDS: Sodium Chloride 0.9% 1,000 ML IV SCH ×3 (10:16→23:38)
[2017-03-23 10:18] LABS: ALT/SGPT 26 U/L (7-56); AST/SGOT 20 U/L (14-36); BLOOD UREA NITROGEN 5 mg/dL (7-21); CALCIUM 8.4 mg/dL (8.4-10.5); GFR AFRICAN-AMERICAN > 60; GFR NON-AFRICAN AMERICAN 60; MAGNESIUM 1.9 mg/dL (1.7-2.2)
[2017-03-23] MEDS ORDERED: Potassium Chloride 20 mEq ER Tab PO STA (11:30)
--- NOTE | 2017-03-23 13:10 | CP.PCM.PN ---
<Alhaji Schwarz - Last Filed: 03/23/17 13:03> Subjective - Date & Time of Evaluation Date of Evaluation: 03/23/17 Time of Evaluation: 13:03 - Subjective Subjective: Medicine Progress Note Pt seen and examined at bedside. No acute overnight events. Pt states she still having diarrhea, but no hematochezia. Pt denies any fatigue. Pt denies chest pain, shortness of breath, nausea, vomiting, abdominal pain, fever, chills, headache, or dizziness. Objective - Vital Signs/Intake and Output Vital Signs (last 24 hours): Temp Pulse Resp BP Pulse Ox 98.5 F 84 20 105/61 92 L 03/23/17 10:14 03/23/17 10:14 03/23/17 10:14 03/23/17 10:14 03/23/17 10:14 Intake and Output: 03/23/17 03/23/17 06:59 18:59 Intake Total 490 Output Total 201 Balance 289 - Medications Medications: Current Medications Atorvastatin Calcium (Lipitor) 10 mg PO DIN [facility] Carbamazepine (Tegretol) 100 mg PO DAILY [facility] PRN Reason: Protocol Last Admin: 03/23/17 10:14 Dose: 100 mg Gabapentin (Neurontin) 300 mg PO TID PRN; Protocol PRN Reason: Neuralgia Last Admin: 03/23/17 10:24 Dose: 300 mg Hydrocortisone Sodium Succinate (Solu-Cortef) 100 mg IVP BID [facility] Last Admin: 03/23/17 10:25 Dose: 100 mg Sodium Chloride (Sodium Chloride 0.9%) 1,000 mls @ 75 mls/hr IV .[id number] [facility] Last Admin: 03/23/17 10:24 Dose: 75 mls/hr Mesalamine (Asacol Hd 800mg) 800 mg PO QID [facility] Last Admin: 03/23/17 10:15 Dose: 800 mg Non-Formulary Medication (Ubidecarenone [Coq-10]) 200 mg PO DAILY [facility] Last Admin: 03/23/17 10:25 Dose: Not Given Non-Formulary Medication (Multivit,Calc,Mins/Iron/Folic [One-A-Day Women's Tablet]) 1 tab PO DAILY [facility] Last Admin: 03/23/17 10:23 Dose: Not Given Pantoprazole Sodium (Protonix Inj) 40 mg IVP DAILY [facility] Last Admin: 03/23/17 10:24 Dose: 40 mg - Labs Labs: 03/23/17 09:30 03/23/17 09:30 PT 10.9 SECONDS (9.4-12.5) 03/22/17 10:10 INR 0.95 (0.93-1.08) 03/22/17 10:10 APTT 28.0 Seconds (25.1-36.5) 03/22/17 10:10 - Constitutional Appears: No Acute Distress - Head Exam Head Exam: NORMAL INSPECTION - Eye Exam Eye Exam: Normal appearance - ENT Exam ENT Exam: Normal Exam - Neck Exam Neck Exam: Normal Inspection - Respiratory Exam Respiratory Exam: Clear to Ausculation Bilateral. absent: Rales, Rhonchi, Wheezes - Cardiovascular Exam Cardiovascular Exam: RRR, +S1, +S2. absent: Gallop, Rubs, Murmur - GI/Abdominal Exam GI & Abdominal Exam: Soft. absent: Distended, Guarding, Tenderness, Rebound - Extremities Exam Extremities Exam: Normal Inspection - Back Exam Back Exam: NORMAL INSPECTION - Neurological Exam Neurological Exam: Alert, Awake, Oriented x3 - Psychiatric Exam Psychiatric exam: Normal Affect, Normal Mood - Skin Skin Exam: Dry, Intact, Normal Color, Warm Assessment and Plan - Assessment and Plan (Free Text) Assessment: Pt is an 86 yo F with past medical history of ulcerative colitis, c. diff colitis, CMV colitis, pneumonia, hyperlipidemia, postherpetic neuralgia admitted for evaluation and treatment for anemia possibly 2/2 ulcerative colitis. Plan: 1. Anemia - Likely due to chronic disease - Transfused 2 units pRBC - Hgb 9.4 - Cont to monitor, transfuse to keep Hgb > 7 2. Ulcerative Colitis - Cont hydrocortisone 100 mg IVP BID - Cont Mesalamine - Stool c. diff and cultures ordered - GI consulted - ID consulted Remicade ok to start, should be on Valtrex as ppx due to h/o HSV - Liquid diet, advance as tolerated - IVF 3. Hyperlipidemia - Cont Lipitor 4. H/o HSV, postherpetic neuralgia - Neuro consulted Cont carbemazepine, neurontin Cleared to start Remicade - ID consulted GI/DVT PPx - Protonix - SCDs <Demetris Espinoza - Last Filed: 03/23/17 17:48> Objective - Vital Signs/Intake and Output Vital Signs (last 24 hours): Temp Pulse Resp BP Pulse Ox 98.5 F 89 20 105/61 92 L 03/23/17 10:14 03/23/17 14:00 03/23/17 10:14 03/23/17 10:14 03/23/17 10:14 Intake and Output: 03/23/17 03/23/17 06:59 18:59 Intake Total 490 Output Total 201 Balance 289 - Medications Medications: Current Medications Atorvastatin Calcium (Lipitor) 10 mg PO DIN [facility] Carbamazepine (Tegretol) 100 mg PO DAILY [facility] PRN Reason: Protocol Last Admin: 03/23/17 10:14 Dose: 100 mg Gabapentin (Neurontin) 300 mg PO TID PRN; Protocol PRN Reason: Neuralgia Last Admin: 03/23/17 10:24 Dose: 300 mg Hydrocortisone Sodium Succinate (Solu-Cortef) 100 mg IVP BID [facility] Last Admin: 03/23/17 10:25 Dose: 100 mg Sodium Chloride (Sodium Chloride 0.9%) 1,000 mls @ 75 mls/hr IV .[id number] [facility] Last Admin: 03/23/17 10:24 Dose: 75 mls/hr Mesalamine (Asacol Hd 800mg) 800 mg PO QID [facility] Last Admin: 03/23/17 13:51 Dose: 800 mg Non-Formulary Medication (Ubidecarenone [Coq-10]) 200 mg PO DAILY [facility] Last Admin: 03/23/17 10:25 Dose: Not Given Non-Formulary Medication (Multivit,Calc,Mins/Iron/Folic [One-A-Day Women's Tablet]) 1 tab PO DAILY [facility] Last Admin: 03/23/17 10:23 Dose: Not Given Pantoprazole Sodium (Protonix Inj) 40 mg IVP DAILY [facility] Last Admin: 03/23/17 10:24 Dose: 40 mg - Labs Labs: 03/23/17 09:30 03/23/17 09:30 PT 10.9 SECONDS (9.4-12.5) 03/22/17 10:10 INR 0.95 (0.93-1.08) 03/22/17 10:10 APTT 28.0 Seconds (25.1-36.5) 03/22/17 10:10 Attending/Attestation - Attestation I have personally seen and examined this patient.: Yes I have fully participated in the care of the patient.: Yes I have reviewed all pertinent clinical information, including history, physical exam and plan: Yes Notes (Text): 03/23/17 17:25 attending note; Patient seen and examined with resident. Patient is a 86-year-old female with past medical history of ulcerative colitis , c. diff colitis, CMV colitis, ammonia, hyperlipidemia, shingles,,postherpetic neuralgia is getting admitted for increasing diarrhea and rectal bleeding. Hemoglobin showed 8.9. 2 units of PRBC transfusion given. Hb is 9.4. Monitor closely. Currently no active bleeding. Diarrhea is improving. Ulcerative colitis; started on IV hydrocortisone. Continue mesalamine. Needs outpatient Remicade. Started on liquid diet. Case discussed with Dr. Shrestha in detail. Advance diet as tolerated. With a history of CMV colitis and C. difficile colitis; needs strong immunosuppressive therapy as outpatient. ID evaluation appreciated. Patient can start Valtrex therapy before Remicade treatment. Patient with a history of shingles; currently no active lesions. Neurology evaluation appreciated. Continue Tegretol continue Neurontin for post herpetic neuralgia. Upon discharge the patient will follow-up with PMD .
--- NOTE | 2017-03-23 15:15 | CP.PCM.PN ---
Subjective - Date & Time of Evaluation Date of Evaluation: 03/23/17 Time of Evaluation: 14:00 - Subjective Subjective: Infectious Disease Follow Up: March 23, 2017 86 yo female known to me from the past with increasing fatigue, diarrhea, and BRBPR. The patient has severe Ulcerative Colitis history and was on Remicade for treatment. Remicade was stopped recently due to Herpes Zoster outbreak. Patient has had bloody bowel movements and stomach pains over the past 2 weeks. 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 Biopsies done recently of the colon did not show positive tests for CMV. The patient was on Steroids, 6-MP, and Remicade until the past few months. The patient stopped 6-MP due to hair loss. Remicade stopped due to Herpes Zoster outbreak. To restart Remicade. Objective - Vital Signs/Intake and Output Vital Signs (last 24 hours): Temp Pulse Resp BP Pulse Ox 98.5 F 89 20 105/61 92 L 03/23/17 10:14 03/23/17 14:00 03/23/17 10:14 03/23/17 10:14 03/23/17 10:14 Intake and Output: 03/23/17 03/23/17 06:59 18:59 Intake Total 490 Output Total 201 Balance 289 - Medications Medications: Current Medications Atorvastatin Calcium (Lipitor) 10 mg PO DIN [facility] Carbamazepine (Tegretol) 100 mg PO DAILY [facility] PRN Reason: Protocol Last Admin: 03/23/17 10:14 Dose: 100 mg Gabapentin (Neurontin) 300 mg PO TID PRN; Protocol PRN Reason: Neuralgia Last Admin: 03/23/17 10:24 Dose: 300 mg Hydrocortisone Sodium Succinate (Solu-Cortef) 100 mg IVP BID [facility] Last Admin: 03/23/17 10:25 Dose: 100 mg Sodium Chloride (Sodium Chloride 0.9%) 1,000 mls @ 75 mls/hr IV .[id number] [facility] 234 [facility]S [facility] Last Admin: 03/23/17 10:24 Dose: 75 mls/hr Mesalamine (Asacol Hd 800mg) 800 mg PO QID [facility] Last Admin: 03/23/17 13:51 Dose: 800 mg Non-Formulary Medication (Ubidecarenone [Coq-10]) 200 mg PO DAILY [facility] 234 [facility] Last Admin: 03/23/17 10:25 Dose: Not Given Non-Formulary Medication (Multivit,Calc,Mins/Iron/Folic [One-A-Day Women's Tablet]) 1 tab PO DAILY [facility] Last Admin: 03/23/17 10:23 Dose: Not Given Pantoprazole Sodium (Protonix Inj) 40 mg IVP DAILY [facility] Last Admin: 03/23/17 10:24 Dose: 40 mg - Labs Labs: 03/23/17 09:30 03/23/17 09:30 PT 10.9 SECONDS (9.4-12.5) 03/22/17 10:10 INR 0.95 (0.93-1.08) 03/22/17 10:10 APTT 28.0 Seconds (25.1-36.5) 03/22/17 10:10 - Constitutional Appears: No Acute Distress, Chronically Ill - Head Exam Head Exam: ATRAUMATIC, NORMOCEPHALIC - Eye Exam Eye Exam: EOMI, PERRL Pupil Exam: NORMAL ACCOMODATION, PERRL. absent: Irregular - ENT Exam ENT Exam: Mucous Membranes Moist, Normal External Ear Exam, TM's Normal Bilaterally - Neck Exam Neck Exam: Full ROM, Normal Inspection - Respiratory Exam Respiratory Exam: Clear to Ausculation Bilateral, NORMAL BREATHING PATTERN. absent: Rales, Rhonchi, Wheezes - Cardiovascular Exam Cardiovascular Exam: REGULAR RHYTHM, RRR, +S1, +S2 - GI/Abdominal Exam GI & Abdominal Exam: Soft, Normal Bowel Sounds. absent: Distended, Tenderness - Extremities Exam Extremities Exam: Full ROM, Normal Inspection - Neurological Exam Neurological Exam: Alert, Awake, CN II-XII Intact, Oriented x3 - Psychiatric Exam Psychiatric exam: Normal Affect, Normal Mood - Skin Skin Exam: Intact, Normal Color Assessment and Plan - Assessment and Plan (Free Text) Assessment: 86 yo female with history of severe ulcerative colitis that was controlled only with use of Remicade with 6-MP and Steroids. Due to the patient having hair loss, she stopped taking the 6-MP. Remicade was stopped due to Herpes Zoster flare up. The patient has anemia. 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 Dr. Shrestha stated that a recent colon biopsy did not show CMV disease. There are few options for CMV control. One can consider gancyclovir prophylatic treatment for CMV but there is not a large amount of research regarding ulcerative colitis and CMV prevention/treatment. Regarding Herpes Zoster, the patient has two options. The first option is lifelong Valtrex therapy. The other option is preemptive treatment with Valtrex while on Remicade treatment. Preemptive therapy would be the prefered choice. Preemptive treatment would give Valtrex treatment at times there is high suspicions for Herpes Zoster being active. Noted that the patient still has residual postherpatic neuralgia. Case discussed with Dr. Shrestha. Supportive care. Thank you for allowing me to partipate in the care of the patient, we will follow with you.
--- NOTE | 2017-03-23 18:36 | CP.PCM.PN ---
<Tiana Mas - Last Filed: 03/23/17 18:36> Subjective - Date & Time of Evaluation Date of Evaluation: 03/23/17 Time of Evaluation: 10:50 - Subjective Subjective: Seen and examined at the bedside earlier today, chart review. Patient reports having 3-4 BMs last night and 4 PM this morning after clear liquid breakfast, reports that it usually small amount with gas, no report of melena or bright red blood per rectum. Still feels fatigued, no nausea or vomiting, fever or chills. Status post blood transfusion. C. difficile negative. Objective - Vital Signs/Intake and Output Vital Signs (last 24 hours): Temp Pulse Resp BP Pulse Ox 98.1 F 92 H 20 123/72 95 03/23/17 18:00 03/23/17 18:00 03/23/17 18:00 03/23/17 18:00 03/23/17 18:00 Intake and Output: 03/23/17 03/23/17 06:59 18:59 Intake Total 490 Output Total 201 Balance 289 - Medications Medications: Current Medications Atorvastatin Calcium (Lipitor) 10 mg PO DIN [facility] Last Admin: 03/23/17 17:47 Dose: 10 mg Carbamazepine (Tegretol) 100 mg PO BID [facility] PRN Reason: Protocol Last Admin: 03/23/17 18:03 Dose: 100 mg Gabapentin (Neurontin) 600 mg PO BID [facility] PRN Reason: Protocol Last Admin: 03/23/17 18:03 Dose: 600 mg Hydrocortisone Sodium Succinate (Solu-Cortef) 100 mg IVP BID [facility] Last Admin: 03/23/17 17:47 Dose: 100 mg Sodium Chloride (Sodium Chloride 0.9%) 1,000 mls @ 75 mls/hr IV .[id number] [facility] Last Admin: 03/23/17 10:24 Dose: 75 mls/hr Mesalamine (Asacol Hd 800mg) 800 mg PO QID [facility] Last Admin: 03/23/17 17:48 Dose: 800 mg Non-Formulary Medication (Ubidecarenone [Coq-10]) 200 mg PO DAILY [facility] Last Admin: 03/23/17 10:25 Dose: Not Given Non-Formulary Medication (Multivit,Calc,Mins/Iron/Folic [One-A-Day Women's Tablet]) 1 tab PO DAILY [facility] Last Admin: 03/23/17 10:23 Dose: Not Given Pantoprazole Sodium (Protonix Inj) 40 mg IVP DAILY [facility] Last Admin: 03/23/17 10:24 Dose: 40 mg - Labs Labs: 03/23/17 09:30 03/23/17 09:30 PT 10.9 SECONDS (9.4-12.5) 03/22/17 10:10 INR 0.95 (0.93-1.08) 03/22/17 10:10 APTT 28.0 Seconds (25.1-36.5) 03/22/17 10:10 - Constitutional Appears: No Acute Distress - Eye Exam Eye Exam: Normal appearance. absent: Scleral icterus - ENT Exam ENT Exam: Mucous Membranes Moist - Respiratory Exam Respiratory Exam: NORMAL BREATHING PATTERN. absent: Respiratory Distress - Cardiovascular Exam Cardiovascular Exam: +S1, +S2 - GI/Abdominal Exam GI & Abdominal Exam: Soft, Normal Bowel Sounds. absent: Guarding, Tenderness, Rebound - Extremities Exam Extremities Exam: absent: Calf Tenderness, Pedal Edema - Neurological Exam Neurological Exam: Alert, Awake, Oriented x3 Assessment and Plan - Assessment and Plan (Free Text) Assessment: Assessment: Acute exacerbation of ulcerative colitis moderate to severe History of CMV, recent flexible sigmoidoscopy sigmoidoscopy on 03/02/2017, CMV biopsies negative Anemia Dehydration History of C. difficile Plan: Monitor H&H and for overt GI bleed continue Melasamine 800 mg QID on IV steroids advance diet to full liquid monitor electrolytes PPI DVT prophylaxsis: SCDs when optimal plan for Remicade infusions outpatient, neurology and ID evaluation is appreciated. Seen and discussed with Dr. Shrestha. <Darcy Shrestha V - Last Filed: 03/24/17 00:44> Objective - Vital Signs/Intake and Output Vital Signs (last 24 hours): Temp Pulse Resp BP Pulse Ox 98.1 F 92 H 20 123/72 95 03/23/17 18:00 03/23/17 18:00 03/23/17 18:00 03/23/17 18:00 03/23/17 18:00 Intake and Output: 03/23/17 03/24/17 18:59 06:59 Intake Total 360 Output Total 400 Balance -40 - Medications Medications: Current Medications Atorvastatin Calcium (Lipitor) 10 mg PO DIN [facility] Last Admin: 03/23/17 17:47 Dose: 10 mg Carbamazepine (Tegretol) 100 mg PO BID [facility] PRN Reason: Protocol Last Admin: 03/23/17 18:03 Dose: 100 mg Gabapentin (Neurontin) 600 mg PO BID [facility] PRN Reason: Protocol Last Admin: 03/23/17 18:03 Dose: 600 mg Hydrocortisone Sodium Succinate (Solu-Cortef) 100 mg IVP BID [facility] Last Admin: 03/23/17 17:47 Dose: 100 mg Sodium Chloride (Sodium Chloride 0.9%) 1,000 mls @ 75 mls/hr IV .[id number] [facility] Last Admin: 03/23/17 23:38 Dose: 75 mls/hr Mesalamine (Asacol Hd 800mg) 800 mg PO QID [facility] Last Admin: 03/23/17 21:05 Dose: 800 mg Non-Formulary Medication (Ubidecarenone [Coq-10]) 200 mg PO DAILY [facility] Last Admin: 03/23/17 10:25 Dose: Not Given Non-Formulary Medication (Multivit,Calc,Mins/Iron/Folic [One-A-Day Women's Tablet]) 1 tab PO DAILY [facility] Last Admin: 03/23/17 10:23 Dose: Not Given Pantoprazole Sodium (Protonix Inj) 40 mg IVP DAILY [facility] Last Admin: 03/23/17 10:24 Dose: 40 mg - Labs Labs: 03/23/17 09:30 03/23/17 09:30 PT 10.9 SECONDS (9.4-12.5) 03/22/17 10:10 INR 0.95 (0.93-1.08) 03/22/17 10:10 APTT 28.0 Seconds (25.1-36.5) 03/22/17 10:10 Attending/Attestation - Attestation I have personally seen and examined this patient.: Yes I have fully participated in the care of the patient.: Yes I have reviewed all pertinent clinical information, including history, physical exam and plan: Yes Notes (Text): This is an addendum to GI progress report dictated by Tiana Mas APN.The patient was seen and examined earlier. Medical records, lab studies, imagings were reviewed. Last 24 hours events reviewed. Agreed with the above treatment plan as outlined in Tiana Mas APN's notes the with the addition of the following On examination abdomen soft no tenderness Slight improvement of her diarrhea Patient feeling slightly better Would start the patient on Remicade We will also consider restarting 6-MP neurology and ID consultation were reviewed we will change the IV steroids to by mouth prednisone 40 mg daily and advanced diet continue mesalamine 3.2 g a day follow-up hemoglobin and hematocrit and stool studies 03/24/17 00:42
[2017-03-24 06:34] LABS: HEMOGLOBIN 8.9 g/dL (12.0-16.0); MEAN CELL VOLUME 84.6 fl (80.0-105.0); MEAN CORPUSCULAR HEMOGLOBIN 26.8 pg (25.0-35.0); MEAN CORPUSCULAR HGB CONC 31.7 g/dl (31.0-37.0); MEAN PLATELET VOLUME 8.9 fl (7.0-11.0); RBC 3.32 10^6/uL (3.5-6.1); RED CELL DISTRIBUTION WIDTH 15.4 % (11.5-14.5); WHITE BLOOD COUNT 7.4 10^3/ul (4.5-11.0)
[2017-03-24 06:46] LABS: ALBUMIN 2.7 g/dL (3.0-4.8); ALT/SGPT 24 U/L (7-56); AST/SGOT 24 U/L (14-36); BLOOD UREA NITROGEN 4 mg/dL (7-21); CALCIUM 8.3 mg/dL (8.4-10.5); GFR AFRICAN-AMERICAN > 60; GFR NON-AFRICAN AMERICAN > 60
[2017-03-24 07:10] LABS: ALB/GLOB RATIO 0.9 (1.1-1.8)
[2017-03-24 09:13] VITALS: BP 111/70; PULSE 83; TEMP 97.5; O2SAT 99
[2017-03-24] MEDS ORDERED: Potassium Chloride 20 mEq ER Tab PO STA (09:15)
[2017-03-24] MEDS: Mesalamine 800 mg DR Tab PO SCH (09:31)
--- NOTE | 2017-03-24 14:00 | CP.PCM.DIS ---
<Alhaji Schwarz - Last Filed: 03/24/17 13:48> Provider - Provider Date of Admission: 03/22/17 12:12 Attending physician: Demetris Espinoza MD Primary care physician: Matt Peterson MD Consults: GI: Fady Neuro: Yanna ID: Go Time Spent in preparation of Discharge (in minutes): 45 Hospital Course - Lab Results Lab Results: Micro Results 03/22/17 18:54 Stool C. difficile Antigen & Toxin A,B (M - Final Most Recent Lab Values WBC 7.4 10^3/ul (4.5-11.0) 03/24/17 06:00 RBC 3.32 10^6/uL (3.5-6.1) L 03/24/17 06:00 Hgb 8.9 g/dL (12.0-16.0) L 03/24/17 06:00 Hct 28.1 % (36.0-48.0) L 03/24/17 06:00 MCV 84.6 fl (80.0-105.0) 03/24/17 06:00 MCH 26.8 pg (25.0-35.0) 03/24/17 06:00 MCHC 31.7 g/dl (31.0-37.0) 03/24/17 06:00 RDW 15.4 % (11.5-14.5) H 03/24/17 06:00 Plt Count 337 10^3/uL (120.0-450.0) 03/24/17 06:00 MPV 8.9 fl (7.0-11.0) 03/24/17 06:00 Gran % 53.7 % (50.0-68.0) 03/22/17 10:10 Lymph % (Auto) 33.7 % (22.0-35.0) 03/22/17 10:10 [place] % (Auto) 9.8 % (1.0-6.0) H 03/22/17 10:10 Eos % (Auto) 2.0 % (1.5-5.0) 03/22/17 10:10 Baso % (Auto) 0.8 % (0.0-3.0) 03/22/17 10:10 Gran # 3.57 (1.4-6.5) 03/22/17 10:10 Lymph # 2.2 (1.2-3.4) 03/22/17 10:10 [place] # 0.7 (0.1-0.6) H 03/22/17 10:10 Eos # 0.1 (0.0-0.7) 03/22/17 10:10 Baso # 0.05 K/mm3 (0.0-2.0) 03/22/17 10:10 PT 10.9 SECONDS (9.4-12.5) 03/22/17 10:10 INR 0.95 (0.93-1.08) 03/22/17 10:10 APTT 28.0 Seconds (25.1-36.5) 03/22/17 10:10 Sodium 140 mmol/L (132-148) 03/24/17 06:00 Potassium 3.5 mmol/L (3.6-5.0) L 03/24/17 06:00 Chloride 109 mmol/L (98-107) H 03/24/17 06:00 Carbon Dioxide 22 mmol/L (21-33) 03/24/17 06:00 Anion Gap 13 (10-20) 03/24/17 06:00 BUN 4 mg/dL (7-21) L 03/24/17 06:00 Creatinine 0.8 mg/dl (0.7-1.2) 03/24/17 06:00 Est GFR ( Amer) > 60 03/24/17 06:00 Est GFR (Non-Af Amer) > 60 03/24/17 06:00 Random Glucose 120 mg/dL (70-110) H 03/24/17 06:00 Calcium 8.3 mg/dL (8.4-10.5) L 03/24/17 06:00 Phosphorus 2.8 mg/dL (2.5-4.5) 03/23/17 09:30 Magnesium 1.9 mg/dL (1.7-2.2) 03/23/17 09:30 Total Bilirubin 0.1 mg/dL (0.2-1.3) L 03/24/17 06:00 AST 24 U/L (14-36) 03/24/17 06:00 ALT 24 U/L (7-56) 03/24/17 06:00 Alkaline Phosphatase 72 U/L (38-126) 03/24/17 06:00 Total Protein 5.8 g/dL (5.8-8.3) 03/24/17 06:00 Albumin 2.7 g/dL (3.0-4.8) L 03/24/17 06:00 Globulin 3.1 gm/dL 03/24/17 06:00 Albumin/Globulin Ratio 0.9 (1.1-1.8) L 03/24/17 06:00 Lipase 54 U/L (23-300) 03/22/17 10:51 Urine Color Yellow (YELLOW) 03/22/17 13:33 Urine Appearance Sl cloudy (CLEAR) 03/22/17 13:33 Urine pH 6.0 (4.7-8.0) 03/22/17 13:33 Ur Specific [place] 1.010 (1.005-1.035) 03/22/17 13:33 Urine Protein Negative mg/dL (<30 mg/dL) 03/22/17 13:33 Urine Glucose (UA) Negative mg/dL (NEGATIVE) 03/22/17 13:33 Urine Ketones Negative mg/dL (NEGATIVE) 03/22/17 13:33 Urine Blood Trace-intact (NEGATIVE) H 03/22/17 13:33 Urine Nitrate Negative (NEGATIVE) 03/22/17 13:33 Urine Bilirubin Negative (NEGATIVE) 03/22/17 13:33 Urine Urobilinogen 0.2 E.U./dL (<1 E.U./dL) 03/22/17 13:33 Ur Leukocyte Esterase Large Ngozi/uL (NEGATIVE) H 03/22/17 13:33 Urine RBC 0 - 2 /hpf (0-2) 03/22/17 13:33 Urine WBC 20 - 25 /hpf (0-6) 03/22/17 13:33 Ur Epithelial Cells 1 - 3 /hpf (0-5) 03/22/17 13:33 Urine Bacteria Few (NEG) 03/22/17 13:33 Blood Type O POSITIVE 03/22/17 10:10 Antibody Screen Negative 03/22/17 10:10 Crossmatch See Detail 03/22/17 10:10 BBK History Checked Patient has bt 03/22/17 10:10 - Hospital Course Hospital Course: Pt is an 86 yo female with PMH of ulcerative colitis, c. diff colitis, CMV colitis, PNA, HLD, postherpetic neuralgia presented to ED as instructed by Dr. Shrestha due to a 2 week history of increasing diarrhea, fatigue and BRBPR. Pt stated that she chronically has diarrhea and has multiple episodes a day, requiring her to wear adult diapers. Pt stated that recently she has had drops and clots of blood in her diarrhea as well, which has also occurred in the past. Pt complains of overall weakness and fatigue over the last 3 months with unintentional 10 lbs weight loss. Pt was admitted for evaluation and treatment for lower GI bleed likely 2/2 ulcerative colitis. GI was consulted, recommendations were appreciated. Hgb was found to be declining, thus pt was transfused 2 units of pRBC's. GI considering starting patient on Remicade and 6- MP as outpatient for UC. 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 ID recommended that patient could be given Valtrex prophylactically when on Remicade, due to the history of HSV infection and postherpatic neuralgia. Gancyclovir could be given as ppx for history of CMV colitis, however not much data is available regarding this. Neuro was consulted and cleared patient to be started on Remicade. Today, patient was seen and examined at bedside. Pt stated that she still has diarrhea with no blood, but understands that it is to be expected with her current condition. GI recommended that patient could be discharged on PO prednisone and mesalamine and have further workup done as an outpatient. As the patient H/H stable and c. diff was negative, she was discharged. Pt was given prescriptions for prednisone and mesalamine. Pt was given detailed instructions on Prednisone taper. Pt was advised to follow up with her PMD and Dr. Shrestha as an outpatient, where she can begin Remicade therapy. Discharge Diagnosis 1. Ulcerative Colitis 2. Anemia likely 2/2 chronic disease 3. H/o postherpetic neuralgia 4. Hyperlipidemia Discharge Medications - Prednisone taper: 40 mg daily x7 days, 30 mg daily x 7 days, 20 mg daily x7 days, 10 mg daily x7 days - Mesalamine 800 mg PO TID #42 Discharge Exam - Head Exam Head Exam: ATRAUMATIC, NORMOCEPHALIC - Eye Exam Eye Exam: Normal appearance - ENT Exam ENT Exam: Normal Exam - Neck Exam Neck exam: Normal Inspection - Respiratory Exam Respiratory Exam: Clear to PA & Lateral. absent: Accessory Muscle Use, Rales, Rhonchi, Wheezes, Respiratory Distress - Cardiovascular Exam Cardiovascular Exam: RRR, +S1, +S2. absent: Diastolic murmur, Gallop, Rubs, Systolic Murmur - GI/Abdominal Exam GI & Abdominal Exam: Soft. absent: Distended, Guarding, Rebound, Tenderness - Extremities Exam Extremities exam: normal inspection - Back Exam Back exam: NORMAL INSPECTION - Neurological Exam Neurological exam: Alert, Oriented x3 - Psychiatric Exam Psychiatric exam: Normal Affect, Normal Mood - Skin Skin Exam: Dry, Intact, Normal Color, Warm Discharge Plan - Discharge Medications Prescriptions: Mesalamine [Delzicol] 800 mg PO TID 14 Days cap predniSONE [predniSONE Tab] 10 mg PO DAILY 28 Days tab - Follow Up Plan Condition: FAIR Disposition: HOME/ ROUTINE Instructions: Rectal Bleeding (DC), Ulcerative Colitis (DC) Additional Instructions: 1. Follow up with PMD within 1 week 2. Follow up with Dr. Shrestha within 1 week 3. Take Prednisone taper as instructed 40 mg by mouth daily for 7 days 30 mg by mouth daily for 7 days 20 mg by mouth daily for 7 days 10 mg by mouth daily for 7 days 4. Take Mesalamine 800 mg by mouth 3 times a day 5. Resume other home medications as prescribed 6. Return to ED if symptoms worsen Referrals: Matt Peterson MD [Primary Care Provider] - Darcy Shrestha MD [Medical Doctor] - <MontySarikasilke A - Last Filed: 03/24/17 14:27> Provider - Provider Date of Admission: 03/22/17 12:12 Attending physician: Demetris Espinoza MD Primary care physician: Matt Peterson MD Hospital Course - Lab Results Lab Results: Micro Results 03/22/17 18:54 Stool C. difficile Antigen & Toxin A,B (M - Final Most Recent Lab Values WBC 7.4 10^3/ul (4.5-11.0) 03/24/17 06:00 RBC 3.32 10^6/uL (3.5-6.1) L 03/24/17 06:00 Hgb 8.9 g/dL (12.0-16.0) L 03/24/17 06:00 Hct 28.1 % (36.0-48.0) L 03/24/17 06:00 MCV 84.6 fl (80.0-105.0) 03/24/17 06:00 MCH 26.8 pg (25.0-35.0) 03/24/17 06:00 MCHC 31.7 g/dl (31.0-37.0) 03/24/17 06:00 RDW 15.4 % (11.5-14.5) H 03/24/17 06:00 Plt Count 337 10^3/uL (120.0-450.0) 03/24/17 06:00 MPV 8.9 fl (7.0-11.0) 03/24/17 06:00 Gran % 53.7 % (50.0-68.0) 03/22/17 10:10 Lymph % (Auto) 33.7 % (22.0-35.0) 03/22/17 10:10 [place] % (Auto) 9.8 % (1.0-6.0) H 03/22/17 10:10 Eos % (Auto) 2.0 % (1.5-5.0) 03/22/17 10:10 Baso % (Auto) 0.8 % (0.0-3.0) 03/22/17 10:10 Gran # 3.57 (1.4-6.5) 03/22/17 10:10 Lymph # 2.2 (1.2-3.4) 03/22/17 10:10 [place] # 0.7 (0.1-0.6) H 03/22/17 10:10 Eos # 0.1 (0.0-0.7) 03/22/17 10:10 Baso # 0.05 K/mm3 (0.0-2.0) 03/22/17 10:10 PT 10.9 SECONDS (9.4-12.5) 03/22/17 10:10 INR 0.95 (0.93-1.08) 03/22/17 10:10 APTT 28.0 Seconds (25.1-36.5) 03/22/17 10:10 Sodium 140 mmol/L (132-148) 03/24/17 06:00 Potassium 3.5 mmol/L (3.6-5.0) L 03/24/17 06:00 Chloride 109 mmol/L (98-107) H 03/24/17 06:00 Carbon Dioxide 22 mmol/L (21-33) 03/24/17 06:00 Anion Gap 13 (10-20) 03/24/17 06:00 BUN 4 mg/dL (7-21) L 03/24/17 06:00 Creatinine 0.8 mg/dl (0.7-1.2) 03/24/17 06:00 Est GFR ( Amer) > 60 03/24/17 06:00 Est GFR (Non-Af Amer) > 60 03/24/17 06:00 Random Glucose 120 mg/dL (70-110) H 03/24/17 06:00 Calcium 8.3 mg/dL (8.4-10.5) L 03/24/17 06:00 Phosphorus 2.8 mg/dL (2.5-4.5) 03/23/17 09:30 Magnesium 1.9 mg/dL (1.7-2.2) 03/23/17 09:30 Total Bilirubin 0.1 mg/dL (0.2-1.3) L 03/24/17 06:00 AST 24 U/L (14-36) 03/24/17 06:00 ALT 24 U/L (7-56) 03/24/17 06:00 Alkaline Phosphatase 72 U/L (38-126) 03/24/17 06:00 Total Protein 5.8 g/dL (5.8-8.3) 03/24/17 06:00 Albumin 2.7 g/dL (3.0-4.8) L 03/24/17 06:00 Globulin 3.1 gm/dL 03/24/17 06:00 Albumin/Globulin Ratio 0.9 (1.1-1.8) L 03/24/17 06:00 Lipase 54 U/L (23-300) 03/22/17 10:51 Urine Color Yellow (YELLOW) 03/22/17 13:33 Urine Appearance Sl cloudy (CLEAR) 03/22/17 13:33 Urine pH 6.0 (4.7-8.0) 03/22/17 13:33 Ur Specific [place] 1.010 (1.005-1.035) 03/22/17 13:33 Urine Protein Negative mg/dL (<30 mg/dL) 03/22/17 13:33 Urine Glucose (UA) Negative mg/dL (NEGATIVE) 03/22/17 13:33 Urine Ketones Negative mg/dL (NEGATIVE) 03/22/17 13:33 Urine Blood Trace-intact (NEGATIVE) H 03/22/17 13:33 Urine Nitrate Negative (NEGATIVE) 03/22/17 13:33 Urine Bilirubin Negative (NEGATIVE) 03/22/17 13:33 Urine Urobilinogen 0.2 E.U./dL (<1 E.U./dL) 03/22/17 13:33 Ur Leukocyte Esterase Large [place]gozi/uL (NEGATIVE) H 03/22/17 13:33 Urine RBC 0 - 2 /hpf (0-2) 03/22/17 13:33 Urine WBC 20 - 25 /hpf (0-6) 03/22/17 13:33 Ur Epithelial Cells 1 - 3 /hpf (0-5) 03/22/17 13:33 Urine Bacteria Few (NEG) 03/22/17 13:33 Blood Type O POSITIVE 03/22/17 10:10 Antibody Screen Negative 03/22/17 10:10 Crossmatch See Detail 03/22/17 10:10 BBK History Checked Patient has bt 03/22/17 10:10 Attending/Attestation - Attestation I have personally seen and examined this patient.: Yes I have fully participated in the care of the patient.: Yes I have reviewed all pertinent clinical information, including history, physical exam and plan: Yes Notes (Text): 03/24/17 14:22 86 year old female with past medical history of ulcerative colitis and CMV colitis who presented with bloody stools and diarrhea. She was seen by GI and started on iv steroids. Her symptoms improved and her diarrhea and blood stools subsided. She was seen by ID and neurology and started on valtrex. Per GI she is to start remicade and 6MP as outpatient. Patient is discharged home to follow up with pmd and GI. Discharged on tapering steroids as above as per GI. Benjamín Millan MD Hospitalist.
--- NOTE | 2017-03-24 17:03 | CP.PCM.PN ---
Subjective - Date & Time of Evaluation Date of Evaluation: 03/24/17 Time of Evaluation: 13:00 - Subjective Subjective: Infectious Disease Follow Up: March 24, 2017 86 yo female known to me from the past with increasing fatigue, diarrhea, and BRBPR. The patient has severe Ulcerative Colitis history and was on Remicade for treatment. Remicade was stopped recently due to Herpes Zoster outbreak. Patient has had bloody bowel movements and stomach pains over the past 2 weeks. 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 Biopsies done recently of the colon did not show positive tests for CMV. The patient was on Steroids, 6-MP, and Remicade until the past few months. The patient stopped 6-MP due to hair loss. Remicade stopped due to Herpes Zoster outbreak. To restart Remicade. Objective - Vital Signs/Intake and Output Vital Signs (last 24 hours): Temp Pulse Resp BP Pulse Ox 97.5 F L 83 20 111/70 99 03/24/17 09:13 03/24/17 09:13 03/24/17 09:13 03/24/17 09:13 03/24/17 09:13 Intake and Output: 03/24/17 03/24/17 06:59 18:59 Intake Total 1560 Output Total 400 Balance 1160 - Labs Labs: 03/24/17 06:00 03/24/17 06:00 PT 10.9 SECONDS (9.4-12.5) 03/22/17 10:10 INR 0.95 (0.93-1.08) 03/22/17 10:10 APTT 28.0 Seconds (25.1-36.5) 03/22/17 10:10 - Constitutional Appears: No Acute Distress, Chronically Ill - Head Exam Head Exam: ATRAUMATIC, NORMOCEPHALIC - Eye Exam Eye Exam: EOMI, PERRL Pupil Exam: NORMAL ACCOMODATION, PERRL - ENT Exam ENT Exam: Mucous Membranes Moist, Normal External Ear Exam, TM's Normal Bilaterally - Neck Exam Neck Exam: Full ROM, Normal Inspection - Respiratory Exam Respiratory Exam: Clear to Ausculation Bilateral, NORMAL BREATHING PATTERN. absent: Rales, Rhonchi, Wheezes - Cardiovascular Exam Cardiovascular Exam: REGULAR RHYTHM, RRR, +S1, +S2 - GI/Abdominal Exam GI & Abdominal Exam: Soft, Tenderness, Normal Bowel Sounds. absent: Distended - Extremities Exam Extremities Exam: Full ROM, Normal Inspection - Neurological Exam Neurological Exam: Alert, Awake, CN II-XII Intact, Oriented x3 - Psychiatric Exam Psychiatric exam: Normal Affect, Normal Mood - Skin Skin Exam: Intact, Normal Color Assessment and Plan - Assessment and Plan (Free Text) Assessment: 86 yo female with history of severe ulcerative colitis that was controlled only with use of Remicade with 6-MP and Steroids. Due to the patient having hair loss, she stopped taking the 6-MP. Remicade was stopped due to Herpes Zoster flare up. The patient has anemia. 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 Dr. Shrestha stated that a recent colon biopsy did not show CMV disease. There are few options for CMV control. One can consider gancyclovir prophylatic treatment for CMV but there is not a large amount of research regarding ulcerative colitis and CMV prevention/treatment. Regarding Herpes Zoster, the patient has two options. The first option is lifelong Valtrex therapy. The other option is preemptive treatment with Valtrex while on Remicade treatment. Preemptive therapy would be the prefered choice. Preemptive treatment would give Valtrex treatment at times there is high suspicions for Herpes Zoster being active. Noted that the patient still has residual postherpatic neuralgia. Case discussed with Dr. Shrestha. Supportive care. Thank you for allowing me to partipate in the care of the patient, we will follow with you.
--- NOTE | 2017-03-24 18:03 | CP.PCM.PN ---
Subjective - Date & Time of Evaluation Date of Evaluation: 03/24/17 Time of Evaluation: 10:15 - Subjective Subjective: Seen and examined at the bedside earlier today, chart reviewed. Patient appears less fatigue and in good spirits. Tolerating full liquid but would like increased diarrhea. Denies nausea, vomiting, or abdominal pain. Still having diarrhea but frequency and amount is decreased and no bleeding noted. Denies fever chills, shortness of breath, or chest pain. No acute overnight events reported. Patient reports she is feeling better. Looking forward to being discharged soon. Objective - Vital Signs/Intake and Output Vital Signs (last 24 hours): Temp Pulse Resp BP Pulse Ox 97.5 F L 83 20 111/70 99 03/24/17 09:13 03/24/17 09:13 03/24/17 09:13 03/24/17 09:13 03/24/17 09:13 Intake and Output: 03/24/17 03/24/17 06:59 18:59 Intake Total 1560 Output Total 400 Balance 1160 - Labs Labs: 03/24/17 06:00 03/24/17 06:00 PT 10.9 SECONDS (9.4-12.5) 03/22/17 10:10 INR 0.95 (0.93-1.08) 03/22/17 10:10 APTT 28.0 Seconds (25.1-36.5) 03/22/17 10:10 - Constitutional Appears: No Acute Distress - Eye Exam Eye Exam: Normal appearance. absent: Scleral icterus - ENT Exam ENT Exam: Mucous Membranes Moist - Respiratory Exam Respiratory Exam: Clear to Ausculation Bilateral, NORMAL BREATHING PATTERN. absent: Respiratory Distress - Cardiovascular Exam Cardiovascular Exam: +S1, +S2 - GI/Abdominal Exam GI & Abdominal Exam: Soft, Normal Bowel Sounds. absent: Guarding, Tenderness, Rebound - Extremities Exam Extremities Exam: absent: Calf Tenderness, Pedal Edema - Neurological Exam Neurological Exam: Alert, Awake, Oriented x3 - Skin Skin Exam: Dry, Warm Assessment and Plan - Assessment and Plan (Free Text) Assessment: Assessment: Acute exacerbation of ulcerative colitis moderate to severe History of CMV, recent flexible sigmoidoscopy sigmoidoscopy on 03/02/2017, CMV biopsies negative Anemia Dehydration History of C. difficile Plan: Monitor H&H and for overt GI bleed continue Melasamine 800 mg QID on IV steroids advance diet to soft low-residue monitor electrolytes PPI DVT prophylaxsis: SCDs On discharge patient will be sent home on oral steroids and can continue with Melasamine, will plan for outpatient Remicade infusion. Follow up in outpatient office. Discussed with patient. Seen and discussed with Dr. Shrestha.
== END 2017-03-24 14:11 | disposition home or self-care (01) | DRG 386 ==
LOC: ED 09:13 → ERH 12:12 → 3RSO 15:00 → UNDODISIN 15:10
PROVIDERS: ADMIT Internal Medicine; ATTEND Internal Medicine
PROC: 30233N1 Transfusion of Nonautologous Red Blood Cells into Peripheral Vein, Percutaneous Approach (ICD-10-PCS; principal; 2017-03-22)
DX: K51.911 Ulcerative colitis, unspecified with rectal bleeding (principal); B02.29 Other postherpetic nervous system involvement; D63.8 Anemia in other chronic diseases classified elsewhere; E86.0 Dehydration; E78.00 Pure hypercholesterolemia, unspecified; E78.5 Hyperlipidemia, unspecified; E87.6 Hypokalemia; K64.4 Residual hemorrhoidal skin tags; K64.8 Other hemorrhoids; M79.2 Neuralgia and neuritis, unspecified; Z79.899 Other long term (current) drug therapy; Z86.19 Personal history of other infectious and parasitic diseases; Z87.891 Personal history of nicotine dependence; Z91.19 Patient's noncompliance with other medical treatment and regimen; Z80.0 Family history of malignant neoplasm of digestive organs; Z98.49 Cataract extraction status, unspecified eye; R40.2412 Glasgow coma scale score 13-15, at arrival to emergency department

== ENCOUNTER 2017-07-20 08:44 | Inpatient (IN) | payer MEDICARE ==
--- NOTE | 2017-07-20 10:18 | ED PDOC ---
Arrival/HPI - General Chief Complaint: GI Problem Time Seen by Provider: 07/20/17 10:14 Historian: Patient - History of Present Illness Narrative History of Present Illness (Text): 07/20/17 10:15 A 87 year old female, whose past medical history includes hyperlipidemia and ulcerative colitis, presents to the emergency department complaining of rectal bleeding for 1.5 weeks. Patient reports intermittent painless episodes of red bloody stool during bowel movement. Patient notes generalized weakness but denies any fever, chills, nausea, vomiting, abdominal pain, chest pain, shortness of breath or any other complaints. PMD: Dr. Peterson Motor Generator Set Operator: Dr. Shrestha Time/Duration: Other (1.5 weeks) Symptom Course: Intermittent Context: Home Past Medical History - Provider Review Nursing Documentation Reviewed: Yes - Infectious Disease Hx of Infectious Diseases: None - Tetanus Immunization Tetanus Immunization: Unknown - Cardiac Hx Pacemaker: No - Pulmonary Hx Respiratory Disorders: No - Neurological Other/Comment: Oli 2017 - HEENT Hx HEENT Disorder: Yes Hx Cataracts: Yes - Renal Hx Renal Disorder: No - Endocrine/Metabolic Hx Endocrine Disorders: No - Hematological/Oncological Hx Blood Transfusions: Yes Hx Blood Transfusion Reaction: No - Integumentary Hx Dermatological Disorder: No - Musculoskeletal/Rheumatological Hx Musculoskeletal Disorders: No - Gastrointestinal Hx Gastrointestinal Disorders: Yes (RECTAL BLEED) Hx Colitis: Yes (ulcerative) - Genitourinary/Gynecological Hx Genitourinary Disorders: No - Psychiatric Hx Emotional Abuse: No Hx Physical Abuse: No Hx Substance Use: No - Surgical History Hx Orthopedic Surgery: Yes (bilateral wrist, pelvis) Other/Comment: cataract sx - Anesthesia Hx Anesthesia Reactions: No Hx Malignant Hyperthermia: No - Suicidal Assessment Feels Threatened In Home Enviroment: No Family/Social History - Physician Review Nursing Documentation Reviewed: Yes Family/Social History: No Known Family HX Smoking Status: Former Smoker Hx Alcohol Use: Yes (SOCIALLY) Hx Substance Use: No Allergies/Home Meds Allergies/Adverse Reactions: Allergies No Known Allergies Allergy (Verified 07/20/17 08:56) Home Medications: Home Meds Medication Instructions Recorded Confirmed Atorvastatin Calcium [Lipitor] 20 mg PO DAILY 07/15/11 07/20/17 Multivit,Calc,Mins/Iron/Folic 1 tab PO DAILY 07/09/14 07/20/17 [One-A-Day Women's Tablet] Ubidecarenone [Coq-10] 200 mg PO DAILY 05/15/15 07/20/17 Carbamazepine 100 mg PO DAILY 02/28/17 07/20/17 Cyanocobalamin [Vitamin B12] 500 mg PO DAILY 02/28/17 07/20/17 Gabapentin [Neurontin] 300 mg PO PRN PRN 02/28/17 07/20/17 Biotin 500 mcg PO DAILY 07/20/17 07/20/17 Review of Systems - Physician Review All systems were reviewed & negative as marked: Yes - Review of Systems Constitutional: Other (generalized weakness). absent: Fevers, Night Sweats Respiratory: absent: SOB Cardiovascular: absent: Chest Pain Gastrointestinal: Hematochezia. absent: Abdominal Pain, Nausea, Vomiting Physical Exam - Physical Exam Narrative Physical Exam (Text): Constitutional: No acute distress. Head: Normocephalic. Atraumatic. Eyes: PERRL. ENT: Moist mucous membranes. Neck: Supple. Cardiovascular: Regular rate. Chest: No tenderness. Respiratory: Clear to auscultation bilaterally. GI: Soft. Nontender. Nondistended. Back: No CVA tenderness. Musculoskeletal: No tenderness or swelling of extremities. Skin: No rash. Neurologic: Alert, no focal deficit. Vital Signs Reviewed: Yes Vital Signs Temp Pulse Resp BP Pulse Ox 07/20/17 09:03 97.6 F 95 H 16 117/65 95 Temperature: Afebrile Blood Pressure: Normal Pulse: Regular Respiratory Rate: Normal Appearance: Positive for: Well-Appearing, Non-Toxic, Comfortable Pain Distress: None Mental Status: Positive for: Alert and Oriented X 3 Medical Decision Making ED Course and Treatment: 07/20/17 10:15 Impression: A 87 year old female with rectal bleeding. Patient notes generalized weakness. Plan: -- Chest xray -- Labs -- Urine culture and Urinalysis -- Reassess and disposition Progress Notes: EKG shows NSR at [address]/T wave changes. Interpreted by me. Report Date : 07/20/2017 11:26:39 Procedure: Chest xray Dictator : Juan Carlos Galvan MD IMPRESSION: No active disease. No significant interval change compared to the prior examination(s). Hb lower than baseline. Consult placed for GI. Dr. Fitzpatrick accepts to hospitalist service. - Lab Interpretations Lab Results: 07/20/17 10:35 07/20/17 10:35 Lab Results 07/20/17 10:35: Urine Color Yellow, Urine Appearance Clear, Urine pH 6.0, Ur Specific [place] 1.020, Urine Protein Negative, Urine Glucose (UA) Negative, Urine Ketones Negative, Urine Blood Negative, Urine Nitrate Negative, Urine Bilirubin Negative, Urine Urobilinogen 0.2, Ur Leukocyte Esterase Negative 07/20/17 10:35: PT 11.3, INR 0.98, APTT 33.1 07/20/17 10:35: WBC 9.0 D, RBC 3.55, Hgb 9.9 L, Hct 30.5 L, MCV 85.9, MCH 27.9 , MCHC 32.5, RDW 17.1 H, Plt Count 381, MPV 8.7, Gran % 53.5, Lymph % (Auto) 36.6 H, [place] % (Auto) 7.0 H, Eos % (Auto) 2.3, Baso % (Auto) 0.6, Gran # 4.79, Lymph # (Auto) 3.3, [place] # (Auto) 0.6, Eos # (Auto) 0.2, Baso # (Auto) 0.05 07/20/17 10:35: Blood Type O POSITIVE, Antibody Screen Negative, BBK History Checked Patient has bt 07/20/17 10:35: Sodium 144, Potassium 3.6, Chloride 107, Carbon Dioxide 26, Anion Gap 15, BUN 13, Creatinine 0.8, Est GFR ( Amer) > 60, Est GFR (Non- Af Amer) > 60, Random Glucose 92, Calcium 9.1, Total Bilirubin 0.2, AST 32, ALT 20, Alkaline Phosphatase 72, Total Protein 6.8, Albumin 3.6, Globulin 3.2, Albumin/Globulin Ratio 1.1, Lipase 60 I have reviewed the lab results: Yes - RAD Interpretation Radiology Orders: 07/20/17 10:17 CHEST PORTABLE [RAD] Stat - Medication Orders Current Medication Orders: Pantoprazole Sodium (Protonix Inj) 40 mg IVP Q12 KARTHIKEYAN - Scribe Statement The provider has reviewed the documentation as recorded by the Scribe Sania Vilchis Provider Scribe Attestation: All medical record entries made by the Scribe were at my direction and personally dictated by me. I have reviewed the chart and agree that the record accurately reflects my personal performance of the history, physical exam, medical decision making, and the department course for this patient. I have also personally directed, reviewed, and agree with the discharge instructions and disposition. Disposition/Present on Arrival - Present on Arrival Any Indicators Present on Arrival: No History of DVT/PE: No History of Uncontrolled Diabetes: No Urinary Catheter: No History of Decub. Ulcer: No History Surgical Site Infection Following: None - Disposition Have Diagnosis and Disposition been Completed?: Yes Diagnosis: Rectal bleeding Disposition: HOSPITALIZED Disposition Time: 11:25 Patient Plan: Admission Condition: FAIR
[2017-07-20 10:55] LABS: URINE BILIRUBIN NEGATIVE (NEGATIVE); URINE BLOOD NEGATIVE (NEGATIVE); URINE GLUCOSE (UA) NEGATIVE (NEGATIVE); URINE LEUKOCYTE ESTERASE NEGATIVE Leu/uL (NEGATIVE); URINE PROTEIN NEGATIVE mg/dL (<30 mg/dL); URINE UROBILINOGEN 0.2 E.U./dL (<1 E.U./dL)
[2017-07-20 11:00] LABS: URINE APPEARANCE CLEAR (CLEAR); URINE COLOR YELLOW (YELLOW)
[2017-07-20 11:02] LABS: ALB/GLOB RATIO 1.1 (1.1-1.8); ALBUMIN 3.6 g/dL (3.0-4.8); ALT/SGPT 20 U/L (7-56); AST/SGOT 32 U/L (14-36); BLOOD UREA NITROGEN 13 mg/dL (7-21); CALCIUM 9.1 mg/dL (8.4-10.5); GFR AFRICAN-AMERICAN > 60; GFR NON-AFRICAN AMERICAN > 60; LIPASE 60 U/L (23-300)
[2017-07-20 11:06] LABS: INR 0.98 (0.93-1.08); PARTIAL THROMBOPLASTIN TIME 33.1 Seconds (25.1-36.5); PROTHROMBIN TIME 11.3 SECONDS (9.4-12.5)
[2017-07-20 11:22] LABS: BASO # 0.05 K/mm3 (0.0-2.0); BASO % 0.6 % (0.0-3.0); EOS # 0.2 (0.0-0.7); EOS % 2.3 % (1.5-5.0); GRAN # 4.79 (1.4-6.5); GRAN % 53.5 % (50.0-68.0); HEMOGLOBIN 9.9 g/dL (12.0-16.0); LYMPH # 3.3 (1.2-3.4); LYMPH % 36.6 % (22.0-35.0); MEAN CELL VOLUME 85.9 fl (80.0-105.0); MEAN CORPUSCULAR HEMOGLOBIN 27.9 pg (25.0-35.0); MEAN CORPUSCULAR HGB CONC 32.5 g/dl (31.0-37.0); MEAN PLATELET VOLUME 8.7 fl (7.0-11.0); MONO # 0.6 (0.1-0.6); RBC 3.55 10^6/uL (3.5-6.1); RED CELL DISTRIBUTION WIDTH 17.1 % (11.5-14.5)
--- NOTE | 2017-07-20 11:28 | RAD ---
HISTORY: GI bleed COMPARISON: 01/14/2016 FINDINGS: LUNGS: No active pulmonary disease. PLEURA: No significant pleural effusion identified, no pneumothorax apparent. CARDIOVASCULAR: No radiographic findings to suggest acute or significant cardiovascular disease. OSSEOUS STRUCTURES: No significant abnormalities. VISUALIZED UPPER ABDOMEN: Normal. OTHER FINDINGS: None. IMPRESSION: No active disease. No significant interval change compared to the prior examination(s).
--- NOTE | 2017-07-20 14:56 | CP.PCM.HP ---
<Susan Guadarrama - Last Filed: 07/20/17 17:15> History of Present Illness - History of Present Illness History of Present Illness: CC: bright red bleeding per rectum, generalized weakness 87 year old female, with PMH ulcerative colitis, C diff colitis, CMV colitis, HLD, postherpetic neuralgia, noncompliance, presents for BRBPR for past 2 weeks. Pt reports worsening generalized weakness for the past month. Pt had a previous admission on 03/2017 for similar complaint, was transfused 2 units prbcs , treated for UC flare. Since then, pt has been taking iron supplements as per GI (Dr Shrestha). Pt however, stopped taking iron supplements for past 2 weeks, and noted bright red and brown blood mixed with her stools, and toilet bowl. Reports exertional fatigue after few flights of stairs, and weight loss of 20 pounds within past 5 months. Pt denies fever, chills, cp, sob, nausea, vomiting , appetite loss, abdominal/rectal pain with bowel movements, constipation, leg swelling, urinary symptoms, hematuria, melena. Pt reports 2-3 diarrheal episodes daily for past month, bristol stool type 4, soft, pasty. Pt has been taking Remicade as per GI, last dose 8 weeks ago. As per pt, she is due for another dose tomorrow. Pt's last flex sigmoidoscopy 02/2017 shows inflammation from rectum to sigmoid colon, negative for CMV on biopsy. In ED, Hgb 9.9 (baseline 8.9). Other labs unremarkable. Rectal exam done at bedside positive for bright red blood. 12 point ROS obtained and negative, except as per HPI. PMD: Dr. Peterson Heel Stiffener: Dr. Shrestha PMH: ulcerative colitis, c. diff colitis, CMV colitis, PNA, HLD, postherpetic neuralgia PSH: B/L wrist surgery, cataracts All: NKDA FHx: Colon CA SH: Denies tobacco, EtOH, and illicit drug use Medications: Reviewed as per MAY Pre[place] [facility] [place] ulcerative colitis flare. Present on Admission - Present on Admission Any Indicators Present on Admission: No History of DVT/PE: No History of Uncontrolled Diabetes: No Urinary Catheter: No Decubitus Ulcer Present: No Review of Systems - Review of Systems All systems: reviewed and no additional remarkable complaints except Review of Systems: as per HPI Past Patient History - Infectious Disease Hx of Infectious Diseases: None - Tetanus Immunizations Tetanus Immunization: Unknown - Past Social History Smoking Status: Former Smoker - CARDIAC Hx Pacemaker: No - PULMONARY Hx Respiratory Disorders: No - NEUROLOGICAL Other/Comment: Oli 2017 - HEENT Hx HEENT Problems: Yes Hx Cataracts: Yes - RENAL Hx Chronic Kidney Disease: No - ENDOCRINE/METABOLIC Hx Endocrine Disorders: No - HEMATOLOGICAL/ONCOLOGICAL Hx Blood Transfusions: Yes Hx Blood Transfusion Reaction: No - INTEGUMENTARY Hx Dermatological Problems: No - MUSCULOSKELETAL/RHEUMATOLOGICAL Hx Musculoskeletal Disorders: No - GASTROINTESTINAL Hx Gastrointestinal Disorders: Yes (RECTAL BLEED) Hx Colitis: Yes (ulcerative) - GENITOURINARY/GYNECOLOGICAL Hx Genitourinary Disorders: No - PSYCHIATRIC Hx Emotional Abuse: No Hx Physical Abuse: No Hx Substance Use: No - SURGICAL HISTORY Hx Orthopedic Surgery: Yes (bilateral wrist, pelvis) Other/Comment: cataract sx - ANESTHESIA Hx Anesthesia Reactions: No Hx Malignant Hyperthermia: No Meds Allergies/Adverse Reactions: Allergies Allergy/AdvReac Type Severity Reaction Status Date / Time No Known Allergies Allergy Verified 07/20/17 08:56 Physical Exam - Constitutional Appears: Non-toxic, No Acute Distress - Head Exam Head Exam: ATRAUMATIC, NORMOCEPHALIC - Eye Exam Eye Exam: EOMI, PERRL. absent: Conjunctival injection, Nystagmus, Scleral icterus Pupil Exam: NORMAL ACCOMODATION, PERRL. absent: Irregular Additional comments: + conjunctival pallor - ENT Exam ENT Exam: absent: Mucous Membranes Moist - Neck Exam Neck exam: Positive for: Full Rom - Respiratory Exam Respiratory Exam: Clear to Auscultation Bilateral, NORMAL BREATHING PATTERN. absent: Accessory Muscle Use, Rhonchi, Wheezes - Cardiovascular Exam Cardiovascular Exam: RRR, +S1, +S2. absent: Systolic Murmur - GI/Abdominal Exam GI & Abdominal Exam: Normal Bowel Sounds, Soft. absent: Distended, Firm, Mass, Organomegaly, Rebound, Tenderness - Rectal Exam Additional comments: + blood on rectal exam. no external hemorrhoid appreciated - Extremities Exam Extremities exam: Positive for: normal inspection. Negative for: calf tenderness, pedal edema - Back Exam Back exam: NORMAL INSPECTION - Neurological Exam Neurological exam: Alert, Oriented x3 - Psychiatric Exam Psychiatric exam: Normal Affect, Normal Mood - Skin Skin Exam: Dry, Pallor, Warm Results - Vital Signs Recent Vital Signs: Last Vital Signs Temp 97.6 F 07/20/17 09:03 Pulse 95 H 07/20/17 09:03 Resp 16 07/20/17 09:03 BP 117/65 07/20/17 09:03 Pulse Ox 95 07/20/17 09:03 - Labs Result Diagrams: 07/20/17 10:35 07/20/17 10:35 Assessment & Plan - Assessment and Plan (Free Text) Assessment: 87 yo F with PMH of ulcerative colitis, c. diff colitis, CMV colitis, PNA, HLD, postherpetic neuralgia admitted for evaluation and treatment for anemia, generalized weakness, weight loss: Generalized weakness: 2/2 anemia 2/2 underlying UC, rule out malignancy - Hgb 9.9 - iron studies, B12, folate - CT chest, abd, pelvis - Type and screen - IVF - GI consulted. Appreciate recs - spoke with Dr Shrestha. - Mesalamine enema, Solucortef - transfuse to keep Hgb > 7 - Soft diet - Protonix Diarrhea: 2/2 ulcerative colitis vs c diff - Pt has a history of CMV colitis, ulcerative colitis, c. diff colitis - Stool c diff and cultures - Monitor HLD - Cont Lipitor H/o HSV, postherpetic neuralgia - Cont carbemazepine, neurontin GI/DVT PPx - Protonix - SCDs Pt seen and discussed in detail with Dr Millan. Susan Guadarrama PGY1 - Date & Time Date: 07/20/17 Time: 17:30 <Benjamín Millan - Last Filed: 07/20/17 17:40> Results - Vital Signs Recent Vital Signs: Last Vital Signs Temp 97.8 F 07/20/17 15:35 Pulse 76 07/20/17 15:35 Resp 16 07/20/17 15:35 BP 105/60 07/20/17 15:35 Pulse Ox 98 07/20/17 15:35 - Labs Result Diagrams: 07/20/17 10:35 07/20/17 10:35 Attending/Attestation - Attestation I have personally seen and examined this patient.: Yes I have fully participated in the care of the patient.: Yes I have reviewed all pertinent clinical information: Yes Notes (Text): 07/20/17 17:37 87 year old female with past medical history of ulcerative colitis, CMV colitis , dyslipidemia and postherpetic neuralgia who presented with complaint of rectal bleeding and generalized weakness. Her anemia is stable close to baseline. Will continue with diet as tolerated, IVF, and protonix. Continue with steroids and mesalamine as per GI. CT chest/abd/pelvis was ordered. Will continue to monitor CBC closely and transfuse as needed. Benjamín Millan MD Hospitalist.
--- NOTE | 2017-07-20 15:34 | CARD ---
APPROVED REPORT EKG Measurement Heart [id number] <Conclusion> Normal sinus rhythm Normal ECG
[2017-07-20] MEDS ORDERED: Iohexol 240 (50 ml) ONE (15:41)
[2017-07-20] MEDS ORDERED: Iohexol 350 MG/100 ML VIAL ONE (17:31)
[2017-07-20 18:49] LABS: IRON 18 ug/dL (45-180)
[2017-07-20 18:58] LABS: % IRON SATURATION 7 % (20-55); TOTAL IRON BINDING CAPACITY 276 ug/dL (265-497)
--- NOTE | 2017-07-20 21:20 | CT ---
EXAM: CT Chest With Intravenous Contrast CLINICAL HISTORY: 87 years old, female; Signs and symptoms; Other: Gi bleeding; Other: Anemia, weight loss TECHNIQUE: Axial computed tomography images of the chest with intravenous contrast. All CT scans at this facility use one or more dose reduction techniques, viz.: automated exposure control; ma/kV adjustment per patient size (including targeted exams where dose is matched to indication; i.e. head); or iterative reconstruction technique. Coronal and sagittal reformatted images were created and reviewed. CONTRAST: 100 mL of omnipaque 350 administered intravenously. COMPARISON: No relevant prior studies available. FINDINGS: Limitations: Motion artifact - mild. Lungs: Minimal atelectasis. No consolidation. Few small cysts or bullae within upper lobes. Few nodules, up to 0.4 cm. Pleural space: No pneumothorax. No significant effusion. Heart: Mild cardiomegaly. No significant pericardial effusion. Mild coronary artery calcifications. Bones/joints: Tiny sclerotic lesion within T5 vertebral body. Mild compression deformity superior end plate T11 vertebral body, chronic. Soft tissues: 1.2 x 1.2 x 2.1 cm mass within medial left breast. Vasculature: [id number] atherosclerotic disease. No aneurysm. Lymph nodes: No pathologically enlarged lymph nodes. IMPRESSION: 1. Left breast lesion, indeterminate. Recommend mammography. 2. Sclerotic bone lesion, nonspecific. Recommend bone scan. 3. Pulmonary nodules. For low-risk patients, no follow-up is necessary. For high-risk patients (smoking history or other known risk factors) an optional CT at 12 months could be performed. 4. Incidental/non-acute findings are described above. EXAM: CT Abdomen and Pelvis With Intravenous Contrast CLINICAL HISTORY: 87 years old, female; Signs and symptoms; Other: Gi bleeding; Other: Anemia, weight loss TECHNIQUE: Axial computed tomography images of the abdomen and pelvis with intravenous contrast. All CT scans at this facility use one or more dose reduction techniques, viz.: automated exposure control; ma/kV adjustment per patient size (including targeted exams where dose is matched to indication; i.e. head); or iterative reconstruction technique. Coronal and sagittal reformatted images were created and reviewed. CONTRAST: 100 mL of omnipaque 350 administered intravenously. COMPARISON: No relevant prior studies available. FINDINGS: Limitations: Motion artifact - mild. ABDOMEN: Liver: Unremarkable. No mass. Gallbladder and bile ducts: No calcified stones. No ductal dilation. Pancreas: No ductal dilation. No mass. Spleen: No splenomegaly. Adrenals: No mass. Kidneys and ureters: No mass. No hydronephrosis. Stomach and bowel: [id number] diffuse mural thickening of large bowel. No obstruction. PELVIS: Appendix: No findings to suggest acute appendicitis. Bladder: Unremarkable. Reproductive: Unremarkable as visualized. ABDOMEN and PELVIS: Intraperitoneal space: No significant fluid collection. No free air. Bones/joints: Degenerative changes of spine. Healed fracture deformities left superior and inferior pubic rami. Soft tissues: Tiny umbilical hernia containing fat. Vasculature: Moderate atherosclerotic disease. 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 3.1 x 1.9 x 1.8 cm calcified splenic artery aneurysm. Lymph nodes: No pathologically enlarged lymph nodes. IMPRESSION: 1. Colitis, nonspecific. Consider inflammatory or infectious etiologies. 2. Incidental/non-acute findings are described above.
[2017-07-20] MEDS: Sodium Chloride 0.9% 1,000 ML IV SCH (22:27)
[2017-07-20 23:22] VITALS: BMI 25.4
[2017-07-20] MEDS ORDERED: Pneumococcal 23-Valent Vaccine IM ONE (23:22)
[2017-07-21] MEDS: Sodium Chloride 0.9% 1,000 ML IV SCH ×5 (04:58→23:00)
[2017-07-21 06:36] LABS: BASO # 0.06 K/mm3 (0.0-2.0); BASO % 0.8 % (0.0-3.0); EOS # 0.1 (0.0-0.7); EOS % 0.9 % (1.5-5.0); GRAN # 3.72 (1.4-6.5); HEMOGLOBIN 9.5 g/dL (12.0-16.0); LYMPH # 3.3 (1.2-3.4); LYMPH % 42.3 % (22.0-35.0); MEAN CELL VOLUME 84.7 fl (80.0-105.0); MEAN CORPUSCULAR HEMOGLOBIN 27.4 pg (25.0-35.0); MEAN CORPUSCULAR HGB CONC 32.3 g/dl (31.0-37.0); MEAN PLATELET VOLUME 8.5 fl (7.0-11.0); MONO # 0.6 (0.1-0.6); RBC 3.47 10^6/uL (3.5-6.1); RED CELL DISTRIBUTION WIDTH 16.8 % (11.5-14.5); WHITE BLOOD COUNT 7.8 10^3/ul (4.5-11.0)
[2017-07-21 07:12] LABS: ALB/GLOB RATIO 1.1 (1.1-1.8); ALBUMIN 3.3 g/dL (3.0-4.8); ALT/SGPT 15 U/L (7-56); AST/SGOT 38 U/L (14-36); BLOOD UREA NITROGEN 10 mg/dL (7-21); CALCIUM 8.4 mg/dL (8.4-10.5); GFR AFRICAN-AMERICAN > 60; GFR NON-AFRICAN AMERICAN > 60
[2017-07-21] MEDS ORDERED: Potassium Chloride 20 mEq ER Tab PO STA (08:04)
[2017-07-21] MEDS: Multivitamin With Minerals Tab PO SCH (09:25)
[2017-07-21] MEDS ORDERED: [UNRECOGNIZED DRUG - OTHER] PO SCH (10:00)
[2017-07-21] MEDS ORDERED: MULTIVIT CALC MINS PO SCH (10:00)
[2017-07-21] MEDS ORDERED: CYANOCOBALAMIN 500 MG PO SCH (10:00)
[2017-07-21] MEDS ORDERED: FOLIC PO SCH (10:00)
[2017-07-21] MEDS ORDERED: IRON PO SCH (10:00)
[2017-07-21 12:36] LABS: FERRITIN 11.8 ng/mL
[2017-07-21 13:07] LABS: FOLATE > 20.0 ng/mL
--- NOTE | 2017-07-21 13:52 | CP.PCM.PN ---
<Susan Guadarrama - Last Filed: 07/21/17 13:49> Subjective - Date & Time of Evaluation Date of Evaluation: 07/21/17 Time of Evaluation: 13:49 - Subjective Subjective: Susan Guadarrama, PGY1, Progress Note for Dr Millan: Patient seen and examined at bedside. Pt reports 10 episodes of bloody diarrhea overnight. Pt refused mesalamine enema yesterday, will switch to PO. Denies dizziness, fever, chills, nausea, vomiting, leg swelling. States that her generalized weakness has mildly improved. Able to eat PO soft diet well. Objective - Vital Signs/Intake and Output Vital Signs (last 24 hours): Temp Pulse Resp BP Pulse Ox 97.8 F 84 20 126/71 94 L 07/21/17 12:00 07/21/17 12:00 07/21/17 12:00 07/21/17 12:00 07/21/17 06:00 Intake and Output: 07/21/17 07/21/17 06:59 18:59 Intake Total 1660 Balance 1660 - Medications Medications: Current Medications Atorvastatin Calcium (Lipitor) 20 mg PO DIN [facility] Last Admin: 07/20/17 16:47 Dose: 20 mg Carbamazepine (Tegretol) 100 mg PO DAILY [facility] PRN Reason: Protocol Last Admin: 07/21/17 10:35 Dose: 100 mg Cyanocobalamin (Vitamin B12 100 Mcg Tab) 500 mcg PO DAILY [facility] Last Admin: 07/21/17 10:38 Dose: 500 mcg Gabapentin (Neurontin) 300 mg PO DAILY PRN; Protocol PRN Reason: PAIN, MOD [4-7] Hydrocortisone Sodium Succinate (Solu-Cortef) 100 mg IVP BID [facility] Last Admin: 07/21/17 09:24 Dose: 100 mg Sodium Chloride (Sodium Chloride 0.9%) 1,000 mls @ 100 mls/hr IV .Q10H [facility] Last Admin: 07/21/17 09:34 Dose: 100 mls/hr Magnesium Citrate (Citrate Of Mag) 300 ml PO ONCE ONE Stop: 07/21/17 16:01 Mesalamine (Rowasa Enema) 4 gm RC HS [facility] Last Admin: 07/20/17 22:27 Dose: Not Given Multivitamins/Minerals (Therapeutic-M Tab) 1 tab PO DAILY [facility] Last Admin: 07/21/17 09:25 Dose: 1 tab Pantoprazole Sodium (Protonix Inj) 40 mg IVP Q12 [facility] Last Admin: 07/21/17 09:24 Dose: 40 mg - Labs Labs: 07/21/17 13:00 07/21/17 05:30 PT 11.3 SECONDS (9.4-12.5) 07/20/17 10:35 INR 0.98 (0.93-1.08) 07/20/17 10:35 APTT 33.1 Seconds (25.1-36.5) 07/20/17 10:35 - Constitutional Appears: Non-toxic, No Acute Distress - Head Exam Head Exam: ATRAUMATIC, NORMOCEPHALIC - Eye Exam Eye Exam: EOMI, PERRL. absent: Conjunctival injection, Nystagmus, Scleral icterus Pupil Exam: NORMAL ACCOMODATION, PERRL. absent: Fixed, Irregular, Unequal - ENT Exam ENT Exam: Mucous Membranes Moist - Neck Exam Neck Exam: Full ROM - Respiratory Exam Respiratory Exam: Clear to Ausculation Bilateral, NORMAL BREATHING PATTERN. absent: Accessory Muscle Use, Rales, Rhonchi, Wheezes, Stridor - Cardiovascular Exam Cardiovascular Exam: RRR, +S1, +S2. absent: Murmur - GI/Abdominal Exam GI & Abdominal Exam: Soft, Normal Bowel Sounds. absent: Distended, Firm, Guarding, Rigid, Tenderness, Mass, Organomegaly, Rebound - Extremities Exam Extremities Exam: Normal Inspection. absent: Calf Tenderness, Pedal Edema - Back Exam Back Exam: NORMAL INSPECTION. absent: CVA tenderness (L), CVA tenderness (R) - Neurological Exam Neurological Exam: Alert, Awake, Oriented x3 - Psychiatric Exam Psychiatric exam: Normal Affect, Normal Mood - Skin Skin Exam: Dry, Normal Color, Warm Assessment and Plan - Assessment and Plan (Free Text) Assessment: 87 yo F with PMH of ulcerative colitis, c. diff colitis, CMV colitis, PNA, HLD, postherpetic neuralgia admitted for evaluation and treatment for BRBPR, anemia, generalized weakness, weight loss: Generalized weakness: 2/2 anemia 2/2 underlying UC, rule out malignancy - Hgb 9.5 this AM - stable - iron studies show iron deficiency anemia. Consider feosol after flex sigmoidoscopy tomorrow - CT chest, abd, pelvis shows left medial breast mass, 1.2x1.2x2.1 cm. Sclerotic bone lesion at T5 vertebral body. Consider mammography and bone scan. Will discuss with patient regarding further testing inpatient vs outpatient. Spoke with Dr Peterson and updated him regarding patient's findings. - IVF - GI consulted. Appreciate recs - spoke with Dr Shrestha. Scheduled for flex sigmoidoscopy tomorrow. - Mesalamine, Solucortef - Pt scheduled to receive Remicade today. Consulted Neurology if okay to continue with treatment, will continue after their approval. - transfuse to keep Hgb > 7 - liquid diet - Protonix Diarrhea: 2/2 ulcerative colitis vs c diff vs hyperthyroid state - Pt has a history of CMV colitis, ulcerative colitis, c. diff colitis - Stool c diff and cultures - TSH - Monitor Hypokalemia: - repleted HLD - Cont Lipitor H/o HSV, postherpetic neuralgia - Cont carbemazepine, neurontin GI/DVT PPx - Protonix - SCDs Pt seen and discussed in detail with Dr Millan. Susan Guadarrama, PGY1 <Benjamín Millan - Last Filed: 07/21/17 14:16> Objective - Vital Signs/Intake and Output Vital Signs (last 24 hours): Temp Pulse Resp BP Pulse Ox 97.8 F 84 20 126/71 94 L 07/21/17 12:00 07/21/17 12:00 07/21/17 12:00 07/21/17 12:00 07/21/17 06:00 Intake and Output: 07/21/17 07/21/17 06:59 18:59 Intake Total 1660 Balance 1660 - Medications Medications: Current Medications Atorvastatin Calcium (Lipitor) 20 mg PO DIN [facility] Last Admin: 07/20/17 16:47 Dose: 20 mg Carbamazepine (Tegretol) 100 mg PO DAILY [facility] PRN Reason: Protocol Last Admin: 07/21/17 10:35 Dose: 100 mg Cyanocobalamin (Vitamin B12 100 Mcg Tab) 500 mcg PO DAILY [facility] Last Admin: 07/21/17 10:38 Dose: 500 mcg Gabapentin (Neurontin) 300 mg PO DAILY PRN; Protocol PRN Reason: PAIN, MOD [4-7] Hydrocortisone Sodium Succinate (Solu-Cortef) 100 mg IVP BID [facility] Last Admin: 05/10/18 09:24 Dose: 100 mg Sodium Chloride (Sodium Chloride 0.9%) 1,000 mls @ 100 mls/hr IV .Q10H [facility] Last Admin: 07/21/17 14:09 Dose: Not Given Magnesium Citrate (Citrate Of Mag) 300 ml PO ONCE ONE Stop: 07/21/17 16:01 Mesalamine (Asacol Hd 800mg) 800 mg PO TID [facility] Multivitamins/Minerals (Therapeutic-M Tab) 1 tab PO DAILY [facility] Last Admin: 07/21/17 09:25 Dose: 1 tab Pantoprazole Sodium (Protonix Inj) 40 mg IVP Q12 [facility] Last Admin: 07/21/17 09:24 Dose: 40 mg - Labs Labs: 07/21/17 13:00 07/21/17 05:30 PT 11.3 SECONDS (9.4-12.5) 07/20/17 10:35 INR 0.98 (0.93-1.08) 07/20/17 10:35 APTT 33.1 Seconds (25.1-36.5) 07/20/17 10:35 Attending/Attestation - Attestation I have personally seen and examined this patient.: Yes I have fully participated in the care of the patient.: Yes I have reviewed all pertinent clinical information, including history, physical exam and plan: Yes Notes (Text): 07/21/17 14:12 87 year old female with past medical history of ulcerative colitis, CMV colitis , dyslipidemia and postherpetic neuralgia who presented with complaint of rectal bleeding and generalized weakness. She was started on iv steroids and mesalamine enema, which she refused last night. She still complains of bloody BM overnight although her H/H remains stable. Case was discussed with GI today ; will switch to po mesalamine. ?Remicade therapy. Neurology evaluation is requested due to history of postherpetic neuralgia. CT chest/abdomen/pelvis was reviewed and breast and sclerotic vertebral bone lesions were discussed with the patient. Will discuss with pmd as well for workup possible as outpatient. Benjamín Millan MD Hospitalist.
--- NOTE | 2017-07-21 14:34 | CP.PCM.CON ---
History of Present Illness - History of Present Illness History of Present Illness: S&E at bedside, chart reviewed. Request for GI consult is for GI bleed. HPI: This is an 87-year-old female who is well known to our service, she has a past medical history of ulcerative colitis, C. difficile colitis, CMV colitis, postherpetic neuralgia and noncompliance with medication. Came to the emergency room with complaints of blood per rectum for the past 2 weeks. The patient normally on iron pills complained of feeling weak, she stopped her iron pills 2 days before and her stool which is normally dark started to lighten up but she noticed streaks of reddish blood when having a bowel movement. She does complain of multiple bowel movements that are loose. No complaints of nausea, vomiting, or abdominal pain. Patient denies any fever, chills, shortness of breath or chest pain. Tolerating oral intake. Patient is receiving infusions of Remicade, her last dose was 8 weeks ago. Patient's most recent scope was flesigmoidoscopy on February 2017 which revealed inflammation from the sigmoid to the rectum. However biopsies were negative for CMV. On outpatient basis patient was placed on mesalamine orally but due to insurance and financial reasons the patient was not able to get the medication as per patient. Past medical history: Ulcerative colitis, history of CMV, treated with inpatient , Clostridium difficile colitis, hypercholesterolemia, pneumonia, postherpetic neuralgia Surgical history: Cataract surgery and bilateral wrist surgery Social history: Denies EtOH, smoking or recreational drug use Family history: Colon cancer Medications: Reviewed as per MAR Allergies: No known drug allergies ROS: Systems reviewed positive finding see HPI Past Patient History - Infectious Disease Hx of Infectious Diseases: None - Tetanus Immunizations Tetanus Immunization: Unknown - Past Social History Smoking Status: Former Smoker - CARDIAC Hx Cardiac Disorders: Yes Hx Hypercholesterolemia: Yes Hx Pacemaker: No Hx Peripheral Edema: Yes (+1 ble) Other/Comment: carotid stenosis - PULMONARY Hx Respiratory Disorders: Yes Hx Chronic Obstructive Pulmonary Disease (COPD): Yes Hx Pneumonia: Yes - NEUROLOGICAL Other/Comment: Shingles 2017, residual burning pain to left ear left roman catholic left chin and under right eye, post herpertic neuralgia - HEENT Hx HEENT Problems: Yes (eyeglasses) Hx Cataracts: Yes (b/l sx) - RENAL Hx Chronic Kidney Disease: No - ENDOCRINE/METABOLIC Hx Endocrine Disorders: No - HEMATOLOGICAL/ONCOLOGICAL Hx Blood Disorders: Yes (CMV INFECTION) Hx Anemia: Yes - INTEGUMENTARY Hx Dermatological Problems: Yes Other/Comment: lump under r knee from old fall injury - MUSCULOSKELETAL/RHEUMATOLOGICAL Hx Falls: Yes (past) - GASTROINTESTINAL Hx Gastrointestinal Disorders: Yes (RECTAL BLEED) Hx Diverticulitis: Yes Other/Comment: ulcerative colitis, gi bleed, r emicade infusions in the past - GENITOURINARY/GYNECOLOGICAL Hx Genitourinary Disorders: No - PSYCHIATRIC Hx Substance Use: No - SURGICAL HISTORY Hx Surgeries: Yes Hx Orthopedic Surgery: Yes (bilateral wrist, pelvis) Other/Comment: cataract sx, d&c, pins left wrist - ANESTHESIA Hx Anesthesia Reactions: No Hx Malignant Hyperthermia: No Meds Allergies/Adverse Reactions: Allergies Allergy/AdvReac Type Severity Reaction Status Date / Time No Known Allergies Allergy Verified 07/20/17 08:56 - Medications Medications: Current Medications Atorvastatin Calcium (Lipitor) 20 mg PO DIN [facility] Last Admin: 07/20/17 16:47 Dose: 20 mg Carbamazepine (Tegretol) 100 mg PO DAILY [facility] PRN Reason: Protocol Last Admin: 07/21/17 10:35 Dose: 100 mg Cyanocobalamin (Vitamin B12 100 Mcg Tab) 500 mcg PO DAILY [facility] Last Admin: 07/21/17 10:38 Dose: 500 mcg Gabapentin (Neurontin) 300 mg PO DAILY [facility]N; Protocol PRN Reason: PAIN, MOD [4-7] Hydrocortisone Sodium Succinate (Solu-Cortef) 100 mg IVP BID [facility] Last Admin: 07/21/17 09:24 Dose: 100 mg Sodium Chloride (Sodium Chloride 0.9%) 1,000 mls @ 100 mls/hr IV .Q10H [facility] Last Admin: 07/21/17 09:34 Dose: 100 mls/hr Mesalamine (Rowasa Enema) 4 gm RC HS [facility] Last Admin: 07/20/17 22:27 Dose: Not Given Multivitamins/Minerals (Therapeutic-M Tab) 1 tab PO DAILY [facility] Last Admin: 07/21/17 09:25 Dose: 1 tab Pantoprazole Sodium (Protonix Inj) 40 mg IVP Q12 [facility] Last Admin: 07/21/17 09:24 Dose: 40 mg Physical Exam - Constitutional Appears: No Acute Distress - Head Exam Head Exam: NORMOCEPHALIC - Eye Exam Eye Exam: Normal appearance. absent: Scleral icterus - ENT Exam ENT Exam: Mucous Membranes Moist - Neck Exam Neck exam: Positive for: Normal Inspection - Respiratory Exam Respiratory Exam: NORMAL BREATHING PATTERN. absent: Respiratory Distress - Cardiovascular Exam Cardiovascular Exam: +S1, +S2 - GI/Abdominal Exam GI & Abdominal Exam: Normal Bowel Sounds, Soft. absent: Guarding, Rebound, Tenderness - Extremities Exam Extremities exam: Positive for: pedal pulses present. Negative for: calf tenderness, pedal edema - Neurological Exam Neurological exam: Alert, Oriented x3 - Skin Skin Exam: Dry, Warm Results - Vital Signs Recent Vital Signs: Last Vital Signs Temp 97.7 F 07/21/17 06:00 Pulse 89 07/21/17 06:00 Resp 18 07/21/17 06:00 BP 112/53 L 07/21/17 06:00 Pulse Ox 94 L 07/21/17 06:00 - Labs Result Diagrams: 07/21/17 13:00 07/21/17 05:30 Labs: Laboratory Results - last 24 hr 07/20/17 07/21/17 07/21/17 21:51 05:30 05:30 WBC 7.8 RBC 3.47 L Hgb 10.3 L 9.5 L Hct 29.4 L MCV 84.7 MCH 27.4 MCHC 32.3 RDW 16.8 H Plt Count 357 MPV 8.5 Gran % 48.0 L Lymph % (Auto) 42.3 H Woodson % (Auto) 8.0 H Eos % (Auto) 0.9 L Baso % (Auto) 0.8 Gran # 3.72 Lymph # (Auto) 3.3 Woodson # (Auto) 0.6 Eos # (Auto) 0.1 Baso # (Auto) 0.06 Sodium 146 Potassium 3.2 L Chloride 109 H Carbon Dioxide 26 Anion Gap 14 BUN 10 Creatinine 0.7 Est GFR ( Amer) > 60 Est GFR (Non-Af Amer) > 60 Random Glucose 88 Calcium 8.4 Phosphorus 3.4 Magnesium 1.9 Total Bilirubin 0.3 AST 38 H ALT 15 Alkaline Phosphatase 64 Total Protein 6.3 Albumin 3.3 Globulin 3.0 Albumin/Globulin Ratio 1.1 07/21/17 05:30 WBC RBC Hgb 9.5 L Hct MCV MCH MCHC RDW Plt Count MPV Gran % Lymph % (Auto) Woodson % (Auto) Eos % (Auto) Baso % (Auto) Gran # Lymph # (Auto) Woodson # (Auto) Eos # (Auto) Baso # (Auto) Sodium Potassium Chloride Carbon Dioxide Anion Gap BUN Creatinine Est GFR ( Amer) Est GFR (Non-Af Amer) Random Glucose Calcium Phosphorus Magnesium Total Bilirubin AST ALT Alkaline Phosphatase Total Protein Albumin Globulin Albumin/Globulin Ratio Assessment & Plan - Assessment and Plan (Free Text) Assessment: Assessment: Rectal bleeding may be secondary to Exacerbation of ulcerative colitis Noncompliance with medication H/O C. difficile colitis History of CMV colitis Postherpetic neuralgia Plan: Change diet to clear liquids Plan for flex sigmoidoscopy tomorrow, patient will be given magnesium citrate to clean out, see orders Trend H&H and monitor GI bleeding GI prophylaxis DVT prophylaxis Consider Remicade treatment during admission, discussed with medical team Follow-up stool for C. difficile and culture Continue molasses and mean On IV steroids Plan discussed with patient and medical team. Thank you for this consult and for allowing us to participate in your patient's care, further recommendations based upon clinical course. Seen and discussed with Dr. Shrestha.
[2017-07-21] MEDS ORDERED: Magnesium Citrate Oral SOL (300 ml) PO ONE (16:00)
[2017-07-21] MEDS ORDERED: INFLIXIMAB IV ONE (16:16)
[2017-07-21] MEDS ORDERED: SODIUM CHLORIDE 0.9% IV ONE (16:16)
[2017-07-21] MEDS: Mesalamine 800 mg DR Tab PO SCH (17:35)
[2017-07-22 07:03] LABS: BASO # 0.03 K/mm3 (0.0-2.0); BASO % 0.3 % (0.0-3.0); EOS # 0.1 (0.0-0.7); EOS % 0.7 % (1.5-5.0); GRAN # 5.37 (1.4-6.5); GRAN % 55.7 % (50.0-68.0); HEMOGLOBIN 9.4 g/dL (12.0-16.0); LYMPH # 3.5 (1.2-3.4); MEAN CELL VOLUME 85.1 fl (80.0-105.0); MEAN CORPUSCULAR HEMOGLOBIN 27.5 pg (25.0-35.0); MEAN CORPUSCULAR HGB CONC 32.3 g/dl (31.0-37.0); MEAN PLATELET VOLUME 8.6 fl (7.0-11.0); MONO # 0.7 (0.1-0.6); MONO % 7.3 % (1.0-6.0); RBC 3.42 10^6/uL (3.5-6.1); WHITE BLOOD COUNT 9.6 10^3/ul (4.5-11.0)
[2017-07-22 07:28] LABS: ALB/GLOB RATIO 1.1 (1.1-1.8); ALBUMIN 3.3 g/dL (3.0-4.8); ALT/SGPT 25 U/L (7-56); AST/SGOT 29 U/L (14-36); BLOOD UREA NITROGEN 8 mg/dL (7-21); CALCIUM 8.3 mg/dL (8.4-10.5); GFR AFRICAN-AMERICAN > 60; GFR NON-AFRICAN AMERICAN > 60
[2017-07-22] MEDS: Multivitamin With Minerals Tab PO SCH (10:03)
[2017-07-22] MEDS: Mesalamine 800 mg DR Tab PO SCH ×3 (11:00→17:35)
--- NOTE | 2017-07-22 11:17 | CP.PCM.PN ---
<Susan Guadarrama - Last Filed: 07/22/17 11:13> Subjective - Date & Time of Evaluation Date of Evaluation: 07/22/17 Time of Evaluation: 11:13 - Subjective Subjective: Susan Guadarrama, PGY1, Progress Note for Dr Millan: Patient seen and examined at bedside. Pt had 4-6 diarrheal, brpbr episodes overnight. Reports ongoing fatigue, weakness. Denies fever, chills, nausea, vomiting, abdominal pain, leg swelling. Pt NPO after midnight, scheduled flexible sigmoidoscopy around 3 PM. Pt states that she wants to get her oncology workup (mammography, bone scan) outpatient. Objective - Vital Signs/Intake and Output Vital Signs (last 24 hours): Temp Pulse Resp BP Pulse Ox 98.8 F 84 20 117/56 L 95 07/22/17 06:00 07/22/17 06:00 07/22/17 06:00 07/22/17 06:00 07/22/17 06:00 Intake and Output: 07/22/17 07/22/17 06:59 18:59 Intake Total 1200 Balance 1200 - Medications Medications: Current Medications Atorvastatin Calcium (Lipitor) 20 mg PO DIN [facility] Last Admin: 07/21/17 17:35 Dose: 20 mg Carbamazepine (Tegretol) 100 mg PO DAILY [facility] PRN Reason: Protocol Last Admin: 07/22/17 09:58 Dose: 100 mg Cyanocobalamin (Vitamin B12 100 Mcg Tab) 500 mcg PO DAILY [facility] Last Admin: 07/22/17 09:59 Dose: 500 mcg Gabapentin (Neurontin) 300 mg PO DAILY [facility]; Protocol PRN Reason: PAIN, MOD [4-7] Hydrocortisone Sodium Succinate (Solu-Cortef) 100 mg IVP BID [facility] Last Admin: 07/22/17 10:03 Dose: 100 mg Sodium Chloride (Sodium Chloride 0.9%) 1,000 mls @ 100 mls/hr IV .Q10H [facility] Last Admin: 07/21/17 23:00 Dose: Not Given Potassium Chloride (Potassium Chloride 20 Meq/100 Ml) 20 meq in 100 mls @ 50 mls/hr IVPB Q2H [facility] Stop: 07/22/17 12:44 Last Admin: 07/22/17 09:59 Dose: 50 mls/hr Mesalamine (Asacol Hd 800mg) 800 mg PO TID [facility] Last Admin: 07/21/17 17:35 Dose: 800 mg Multivitamins/Minerals (Therapeutic-M Tab) 1 tab PO DAILY [facility] Last Admin: 07/22/17 10:03 Dose: 1 tab Pantoprazole Sodium (Protonix Inj) 40 mg IVP Q12 [facility] Last Admin: 07/22/17 09:58 Dose: 40 mg - Labs Labs: 07/22/17 06:30 07/22/17 06:30 PT 11.3 SECONDS (9.4-12.5) 07/20/17 10:35 INR 0.98 (0.93-1.08) 07/20/17 10:35 APTT 33.1 Seconds (25.1-36.5) 07/20/17 10:35 - Constitutional Appears: Non-toxic, No Acute Distress - Head Exam Head Exam: ATRAUMATIC, NORMOCEPHALIC - Eye Exam Eye Exam: EOMI, PERRL. absent: Conjunctival injection, Nystagmus, Scleral icterus Pupil Exam: NORMAL ACCOMODATION, PERRL. absent: Fixed, Irregular, Unequal - ENT Exam ENT Exam: Mucous Membranes Moist - Neck Exam Neck Exam: Full ROM - Respiratory Exam Respiratory Exam: Clear to Ausculation Bilateral, NORMAL BREATHING PATTERN. absent: Accessory Muscle Use, Rhonchi, Wheezes, Respiratory Distress - Cardiovascular Exam Cardiovascular Exam: RRR, +S1, +S2. absent: Irregular Rhythm, Murmur - GI/Abdominal Exam GI & Abdominal Exam: Soft, Normal Bowel Sounds. absent: Tenderness, Organomegaly - Extremities Exam Extremities Exam: Full ROM, Normal Inspection. absent: Calf Tenderness, Pedal Edema - Back Exam Back Exam: NORMAL INSPECTION - Neurological Exam Neurological Exam: Alert, Awake, Oriented x3 - Psychiatric Exam Psychiatric exam: Agitated - Skin Skin Exam: Dry, Normal Color, Warm Assessment and Plan - Assessment and Plan (Free Text) Assessment: 87 yo F with PMH of ulcerative colitis, c. diff colitis, CMV colitis, PNA, HLD, postherpetic neuralgia admitted for evaluation and treatment for UC flare, weight loss, generalized weakness, Scheduled for flexible for sigmoidoscopy, unable to provide outpatient scheduled remicade here due to insurance issues, can possibly be discharged if cleared by GI after procedure: Generalized weakness: 2/2 anemia 2/2 underlying UC, rule out malignancy - Hgb 9.5 this AM - stable - iron studies show iron deficiency anemia. Consider feosol after flex sigmoidoscopy tomorrow - CT chest, abd, pelvis shows left medial breast mass, 1.2x1.2x2.1 cm. Sclerotic bone lesion at T5 vertebral body. Consider mammography and bone scan. Will discuss with patient regarding further testing inpatient vs outpatient. Spoke with Dr Peterson and updated him regarding patient's findings. - IVF - GI consulted. Appreciate recs - spoke with Dr Shrestha. Scheduled for flex sigmoidoscopy tomorrow. - Mesalamine, Solucortef - Neurology approved for remicade treatment currently - transfuse to keep Hgb > 7 - Protonix Diarrhea: 2/2 ulcerative colitis vs c diff - Pt has a history of CMV colitis, ulcerative colitis, c. diff colitis - Mesalamine, IV solucortef - Stool c diff and cultures pend - TSH normal - Monitor - Scheduled for flexible sigmoidoscopy. Hypokalemia: - repleted HLD - Cont Lipitor H/o HSV, postherpetic neuralgia - Cont carbemazepine, neurontin GI/DVT PPx - Protonix - SCDs Pt seen and discussed in detail with Dr Millan. Susan Guadarrama, PGY1 <Benjamín Millan - Last Filed: 07/22/17 13:36> Objective - Vital Signs/Intake and Output Vital Signs (last 24 hours): Temp Pulse Resp BP Pulse Ox 98.8 F 84 20 117/56 L 95 07/22/17 06:00 07/22/17 06:00 07/22/17 06:00 07/22/17 06:00 07/22/17 06:00 Intake and Output: 07/22/17 07/22/17 06:59 18:59 Intake Total 1200 Balance 1200 - Medications Medications: Current Medications Atorvastatin Calcium (Lipitor) 20 mg PO DIN [facility] Last Admin: 07/21/17 17:35 Dose: 20 mg Carbamazepine (Tegretol) 100 mg PO DAILY [facility] PRN Reason: Protocol Last Admin: 07/22/17 09:58 Dose: 100 mg Cyanocobalamin (Vitamin B12 100 Mcg Tab) 500 mcg PO DAILY [facility] Last Admin: 07/22/17 09:59 Dose: 500 mcg Gabapentin (Neurontin) 300 mg PO DAILY PRN; Protocol PRN Reason: PAIN, MOD [4-7] Hydrocortisone Sodium Succinate (Solu-Cortef) 100 mg IVP BID [facility] Last Admin: 07/22/17 10:03 Dose: 100 mg Sodium Chloride (Sodium Chloride 0.9%) 1,000 mls @ 100 mls/hr IV .Q10H [facility] Last Admin: 07/22/17 13:31 Dose: 100 mls/hr Mesalamine (Asacol Hd 800mg) 800 mg PO TID [facility] Last Admin: 07/22/17 13:29 Dose: Not Given Multivitamins/Minerals (Therapeutic-M Tab) 1 tab PO DAILY [facility] Last Admin: 07/22/17 10:03 Dose: 1 tab Pantoprazole Sodium (Protonix Inj) 40 mg IVP Q12 [facility] Last Admin: 07/22/17 09:58 Dose: 40 mg - Labs Labs: 07/22/17 06:30 07/22/17 06:30 PT 11.3 SECONDS (9.4-12.5) 07/20/17 10:35 INR 0.98 (0.93-1.08) 07/20/17 10:35 APTT 33.1 Seconds (25.1-36.5) 07/20/17 10:35 Attending/Attestation - Attestation I have personally seen and examined this patient.: Yes I have fully participated in the care of the patient.: Yes I have reviewed all pertinent clinical information, including history, physical exam and plan: Yes Notes (Text): 07/22/17 13:33 87 year old female with past medical history of ulcerative colitis, CMV colitis , dyslipidemia and postherpetic neuralgia who presented with complaint of rectal bleeding and generalized weakness. She was started on iv steroids and mesalamine. Her H/H remains stable. She is being followed by GI and plan is for flex sigmoidoscopy this afternoon. Case was discussed with GI regarding possible remicade therapy. Stool for cdif was negative. CT chest/abdomen/pelvis was reviewed and breast and sclerotic vertebral bone lesions were discussed with the patient. UCx grew E Coli, however UA is negative and patient is afebrile, asymptomatic. Will replete and replete lytes. Benjamín Millan MD Hospitalist.
[2017-07-22] MEDS: Sodium Chloride 0.9% 1,000 ML IV SCH (13:31)
[2017-07-22] MEDS ORDERED: Lidocaine 2% Jelly (30 ml) ONE (16:04)
[2017-07-23] MEDS: Sodium Chloride 0.9% 1,000 ML IV SCH ×4 (01:30→23:08)
[2017-07-23 07:00] LABS: BASO # 0.07 K/mm3 (0.0-2.0); BASO % 0.9 % (0.0-3.0); EOS # 0.1 (0.0-0.7); EOS % 0.6 % (1.5-5.0); GRAN # 3.9 (1.4-6.5); GRAN % 50.4 % (50.0-68.0); HEMOGLOBIN 8.4 g/dL (12.0-16.0); LYMPH # 3.1 (1.2-3.4); LYMPH % 39.6 % (22.0-35.0); MEAN CELL VOLUME 84.6 fl (80.0-105.0); MEAN CORPUSCULAR HEMOGLOBIN 27.5 pg (25.0-35.0); MEAN CORPUSCULAR HGB CONC 32.4 g/dl (31.0-37.0); MEAN PLATELET VOLUME 8.4 fl (7.0-11.0); MONO # 0.7 (0.1-0.6); MONO % 8.5 % (1.0-6.0); RBC 3.06 10^6/uL (3.5-6.1); RED CELL DISTRIBUTION WIDTH 16.7 % (11.5-14.5); WHITE BLOOD COUNT 7.8 10^3/ul (4.5-11.0)
[2017-07-23 07:24] LABS: ALB/GLOB RATIO 1.1 (1.1-1.8); ALBUMIN 2.9 g/dL (3.0-4.8); ALT/SGPT 27 U/L (7-56); AST/SGOT 28 U/L (14-36); BLOOD UREA NITROGEN 3 mg/dL (7-21); CALCIUM 7.8 mg/dL (8.4-10.5); GFR AFRICAN-AMERICAN > 60; GFR NON-AFRICAN AMERICAN > 60
[2017-07-23] MEDS: Multivitamin With Minerals Tab PO SCH (09:38)
[2017-07-23] MEDS: Mesalamine 800 mg DR Tab PO SCH ×3 (09:39→18:01)
--- NOTE | 2017-07-23 13:49 | CP.PCM.PN ---
<Susan Guadarrama - Last Filed: 07/23/17 13:35> Subjective - Date & Time of Evaluation Date of Evaluation: 07/23/17 Time of Evaluation: 13:35 - Subjective Subjective: Patient seen and examined at bedside. No acute events overnight. Denies dizziness, cp, sob, nausea, vomiting, fever, chills, abdominal pain, leg swelling. reports no bloody diarrheal episodes overnight. Objective - Vital Signs/Intake and Output Vital Signs (last 24 hours): Temp Pulse Resp BP Pulse Ox 97.4 F L 82 18 127/73 95 07/23/17 12:00 07/23/17 12:00 07/23/17 12:00 07/23/17 12:00 07/23/17 09:00 Intake and Output: 07/23/17 07/23/17 06:59 18:59 Intake Total 1500 Balance 1500 - Medications Medications: Current Medications Atorvastatin Calcium (Lipitor) 20 mg PO DIN [facility] Last Admin: 07/22/17 17:35 Dose: 20 mg Carbamazepine (Tegretol) 100 mg PO DAILY [facility] PRN Reason: Protocol Last Admin: 07/23/17 09:38 Dose: 100 mg Cyanocobalamin (Vitamin B12 100 Mcg Tab) 500 mcg PO DAILY [facility] Last Admin: 07/23/17 09:37 Dose: 500 mcg Gabapentin (Neurontin) 300 mg PO DAILY PRN; Protocol PRN Reason: PAIN, MOD [4-7] Last Admin: 07/23/17 09:38 Dose: 300 mg Hydrocortisone (Cortenema) 100 mg RC DAILY [facility] Last Admin: 07/23/17 10:16 Dose: 100 mg Hydrocortisone Sodium Succinate (Solu-Cortef) 100 mg IVP BID [facility] Last Admin: 07/23/17 09:35 Dose: 100 mg Sodium Chloride (Sodium Chloride 0.9%) 1,000 mls @ 100 mls/hr IV .Q10H [facility] Last Admin: 07/23/17 11:52 Dose: 100 mls/hr Mesalamine (Asacol Hd 800mg) 800 mg PO TID [facility] Last Admin: 07/23/17 09:39 Dose: 800 mg Mesalamine (Rowasa Enema) 4 gm RC HS [facility] Last Admin: 07/22/17 22:27 Dose: 4 gm Multivitamins/Minerals (Therapeutic-M Tab) 1 tab PO DAILY [facility] Last Admin: 07/23/17 09:38 Dose: 1 tab Pantoprazole Sodium (Protonix Inj) 40 mg IVP Q12 [facility] Last Admin: 07/23/17 09:35 Dose: 40 mg - Labs Labs: 07/23/17 06:30 07/23/17 06:30 PT 11.3 SECONDS (9.4-12.5) 07/20/17 10:35 INR 0.98 (0.93-1.08) 07/20/17 10:35 APTT 33.1 Seconds (25.1-36.5) 07/20/17 10:35 - Constitutional Appears: Non-toxic, No Acute Distress - Head Exam Head Exam: ATRAUMATIC, NORMOCEPHALIC - Eye Exam Eye Exam: EOMI, PERRL. absent: Conjunctival injection, Nystagmus, Scleral icterus Pupil Exam: NORMAL ACCOMODATION, PERRL. absent: Fixed, Irregular, Unequal - ENT Exam ENT Exam: Mucous Membranes Moist - Neck Exam Neck Exam: Full ROM - Respiratory Exam Respiratory Exam: Clear to Ausculation Bilateral, NORMAL BREATHING PATTERN. absent: Accessory Muscle Use, Rhonchi, Wheezes - Cardiovascular Exam Cardiovascular Exam: RRR, +S1, +S2. absent: Murmur - GI/Abdominal Exam GI & Abdominal Exam: Soft, Normal Bowel Sounds. absent: Distended, Firm, Guarding, Tenderness, Mass, Organomegaly, Rebound - Extremities Exam Extremities Exam: Normal Inspection. absent: Calf Tenderness, Pedal Edema - Back Exam Back Exam: NORMAL INSPECTION - Neurological Exam Neurological Exam: Alert, Awake, Oriented x3 - Psychiatric Exam Psychiatric exam: Normal Affect, Normal Mood - Skin Skin Exam: Dry, Normal Color, Warm Assessment and Plan - Assessment and Plan (Free Text) Assessment: 87 yo F with PMH of ulcerative colitis, c. diff colitis, CMV colitis, PNA, HLD, postherpetic neuralgia admitted for evaluation and treatment for UC flare, weight loss, generalized weakness, s/p flexible sigmoiodoscopy showing diffuse inflammation, currently on therapy for UC flare: Generalized weakness: 2/2 anemia 2/2 underlying UC, rule out malignancy - Hgb 8.4, likely dilutional - iron studies show iron deficiency anemia. Will give one dose of venofer 200 mg today. recheck fe levels tomorrow. Will start on PO feosol after. - CT chest, abd, pelvis shows left medial breast mass, 1.2x1.2x2.1 cm. Sclerotic bone lesion at T5 vertebral body. Consider mammography and bone scan. Will discuss with patient regarding further testing inpatient vs outpatient. Spoke with Dr Peterson and updated him regarding patient's findings. - IVF - GI consulted. Appreciate recs. - Mesalamine rectal and PO, Solucortef IV, Hydrocortisone enema per GI - Neurology approved for remicade treatment currently. unable to provide inpatient due to large patient copayment - transfuse to keep Hgb > 7 - Protonix Diarrhea: 2/2 ulcerative colitis vs c diff - Pt has a history of CMV colitis, ulcerative colitis, c. diff colitis - C diff negative - improving diarrhea/BRPBR episodes - Mesalamine rectal and PO, IV solucortef, hydrocotisone enema - TSH normal - Monitor - flexible sigmoidoscopy shows diffuse inflammation. pending official report. Hypokalemia: - resolved - monitor HLD - Cont Lipitor H/o HSV, postherpetic neuralgia - Cont carbemazepine, neurontin GI/DVT PPx - Protonix - SCDs Pt seen and discussed in detail with Dr Millan. Susan Guadarrama, PGY1 <Benjamín Millan - Last Filed: 07/23/17 14:19> Objective - Vital Signs/Intake and Output Vital Signs (last 24 hours): Temp Pulse Resp BP Pulse Ox 97.4 F L 82 18 127/73 95 07/23/17 12:00 07/23/17 12:00 07/23/17 12:00 07/23/17 12:00 07/23/17 09:00 Intake and Output: 07/23/17 07/23/17 06:59 18:59 Intake Total 1500 Balance 1500 - Medications Medications: Current Medications Atorvastatin Calcium (Lipitor) 20 mg PO DIN [facility] Last Admin: 07/22/17 17:35 Dose: 20 mg Carbamazepine (Tegretol) 100 mg PO DAILY [facility] PRN Reason: Protocol Last Admin: 07/23/17 09:38 Dose: 100 mg Cyanocobalamin (Vitamin B12 100 Mcg Tab) 500 mcg PO DAILY [facility] Last Admin: 07/23/17 09:37 Dose: 500 mcg Gabapentin (Neurontin) 300 mg PO DAILY PRN; Protocol PRN Reason: PAIN, MOD [4-7] Last Admin: 07/23/17 09:38 Dose: 300 mg Hydrocortisone (Cortenema) 100 mg RC DAILY [facility] Last Admin: 07/23/17 10:16 Dose: 100 mg Hydrocortisone Sodium Succinate (Solu-Cortef) 100 mg IVP BID [facility] Last Admin: 07/23/17 09:35 Dose: 100 mg Sodium Chloride (Sodium Chloride 0.9%) 1,000 mls @ 100 mls/hr IV .Q10H [facility] Last Admin: 07/23/17 11:52 Dose: 100 mls/hr Iron Sucrose 200 mg/ Sodium (Chloride) 110 mls @ 110 mls/hr IVPB ONCE ONE Stop: 07/23/17 14:43 Mesalamine (Asacol Hd 800mg) 800 mg PO TID [facility] Last Admin: 07/23/17 09:39 Dose: 800 mg Mesalamine (Rowasa Enema) 4 gm RC HS [facility] Last Admin: 07/22/17 22:27 Dose: 4 gm Multivitamins/Minerals (Therapeutic-M Tab) 1 tab PO DAILY [facility] Last Admin: 07/23/17 09:38 Dose: 1 tab Pantoprazole Sodium (Protonix Inj) 40 mg IVP Q12 [facility] Last Admin: 07/23/17 09:35 Dose: 40 mg - Labs Labs: 07/23/17 06:30 07/23/17 06:30 PT 11.3 SECONDS (9.4-12.5) 07/20/17 10:35 INR 0.98 (0.93-1.08) 07/20/17 10:35 APTT 33.1 Seconds (25.1-36.5) 07/20/17 10:35 Attending/Attestation - Attestation I have personally seen and examined this patient.: Yes I have fully participated in the care of the patient.: Yes I have reviewed all pertinent clinical information, including history, physical exam and plan: Yes Notes (Text): 07/23/17 14:11 87 year old female with past medical history of ulcerative colitis, CMV colitis , dyslipidemia and postherpetic neuralgia who presented with complaint of rectal bleeding and generalized weakness. She was started on iv steroids and mesalamine. Her H/H remains stable. She is being followed by GI and had flex sigmoidoscopy yesterday which showed severe inflammation. Case was discussed with Dr. Shrestha who recommended to start mesalamine enema HS and cortenema AM. Stool cutlure and cdiff study were negative. CT chest/abdomen/pelvis was reviewed and breast and sclerotic vertebral bone lesions were discussed with the patient. Recommended outpatient workup. Physical therapy evaluation is requested. Benjamín Millan MD Hospitalist.
[2017-07-24 07:15] LABS: BASO # 0.03 K/mm3 (0.0-2.0); BASO % 0.3 % (0.0-3.0); EOS % 0.2 % (1.5-5.0); GRAN # 4.83 (1.4-6.5); GRAN % 56.1 % (50.0-68.0); HEMOGLOBIN 8.5 g/dL (12.0-16.0); LYMPH % 35.1 % (22.0-35.0); MEAN CELL VOLUME 84.5 fl (80.0-105.0); MEAN CORPUSCULAR HGB CONC 33.1 g/dl (31.0-37.0); MEAN PLATELET VOLUME 8.8 fl (7.0-11.0); MONO # 0.7 (0.1-0.6); MONO % 8.3 % (1.0-6.0); RBC 3.04 10^6/uL (3.5-6.1); RED CELL DISTRIBUTION WIDTH 16.6 % (11.5-14.5); WHITE BLOOD COUNT 8.6 10^3/ul (4.5-11.0)
[2017-07-24 07:39] LABS: ALBUMIN 2.8 g/dL (3.0-4.8); ALT/SGPT 23 U/L (7-56); AST/SGOT 33 U/L (14-36); BLOOD UREA NITROGEN 4 mg/dL (7-21); CALCIUM 8.4 mg/dL (8.4-10.5); GFR AFRICAN-AMERICAN > 60; GFR NON-AFRICAN AMERICAN > 60
[2017-07-24] MEDS ORDERED: Potassium Chloride 20 mEq ER Tab PO STA (08:03)
[2017-07-24] MEDS: Multivitamin With Minerals Tab PO SCH (09:04)
[2017-07-24] MEDS: Mesalamine 800 mg DR Tab PO SCH ×3 (09:06→17:46)
[2017-07-24] MEDS: Sodium Chloride 0.9% 1,000 ML IV SCH ×2 (12:26→14:14)
[2017-07-24] MEDS ORDERED: Potassium Chloride 10 mEq ER Tab PO STA (13:08)
--- NOTE | 2017-07-24 13:16 | CP.PCM.PN ---
<Susan Guadarrama - Last Filed: 07/24/17 13:09> Subjective - Date & Time of Evaluation Date of Evaluation: 07/24/17 Time of Evaluation: 13:09 - Subjective Subjective: Patient seen and examined at bedside. Reports 5 BMs last night, after enema, no blood. Reports rectal soreness decreasing with treatment. Denies dizziness, cp, sob, nausea, vomiting, fever, chills, abdominal pain, leg swelling. Objective - Vital Signs/Intake and Output Vital Signs (last 24 hours): Temp Pulse Resp BP Pulse Ox 98.3 F 71 18 130/70 96 07/24/17 06:00 07/24/17 06:00 07/24/17 06:00 07/24/17 06:00 07/24/17 06:00 Intake and Output: 07/24/17 07/24/17 06:59 18:59 Intake Total 1100 Output Total 0 Balance 1100 - Medications Medications: Current Medications Atorvastatin Calcium (Lipitor) 20 mg PO DIN [facility] Last Admin: 07/23/17 18:01 Dose: 20 mg Carbamazepine (Tegretol) 100 mg PO DAILY [facility] PRN Reason: Protocol Last Admin: 07/24/17 09:05 Dose: 100 mg Cyanocobalamin (Vitamin B12 100 Mcg Tab) 500 mcg PO DAILY [facility] Last Admin: 07/24/17 09:05 Dose: 500 mcg Gabapentin (Neurontin) 300 mg PO DAILY [facility]N; Protocol PRN Reason: PAIN, MOD [4-7] Last Admin: 07/23/17 09:38 Dose: 300 mg Hydrocortisone (Cortenema) 100 mg RC DAILY [facility] Last Admin: 07/24/17 10:51 Dose: 100 mg Hydrocortisone Sodium Succinate (Solu-Cortef) 100 mg IVP BID [facility] Last Admin: 07/24/17 09:06 Dose: 100 mg Sodium Chloride (Sodium Chloride 0.9%) 1,000 mls @ 100 mls/hr IV .Q10H [facility] Last Admin: 07/24/17 12:26 Dose: 100 mls/hr Mesalamine (Asacol Hd 800mg) 800 mg PO TID [facility] Last Admin: 07/24/17 09:06 Dose: 800 mg Mesalamine (Rowasa Enema) 4 gm RC HS [facility] Last Admin: 07/23/17 23:09 Dose: 4 gm Multivitamins/Minerals (Therapeutic-M Tab) 1 tab PO DAILY [facility] Last Admin: 07/24/17 09:04 Dose: 1 tab Pantoprazole Sodium (Protonix Inj) 40 mg IVP Q12 [facility] Last Admin: 07/24/17 09:06 Dose: 40 mg - Labs Labs: 07/24/17 06:00 07/24/17 06:00 PT 11.3 SECONDS (9.4-12.5) 07/20/17 10:35 INR 0.98 (0.93-1.08) 07/20/17 10:35 APTT 33.1 Seconds (25.1-36.5) 07/20/17 10:35 - Additional Findings Additional findings: - Constitutional Appears: Non-toxic, No Acute Distress - Head Exam Head Exam: ATRAUMATIC, NORMOCEPHALIC - Eye Exam Eye Exam: EOMI, PERRL. absent: Conjunctival injection, Nystagmus, Scleral icterus Pupil Exam: NORMAL ACCOMODATION, PERRL. absent: Fixed, Irregular, Unequal - ENT Exam ENT Exam: Mucous Membranes Moist - Neck Exam Neck Exam: Full ROM - Respiratory Exam Respiratory Exam: Clear to Ausculation Bilateral, NORMAL BREATHING PATTERN. absent: Accessory Muscle Use, Rhonchi, Wheezes - Cardiovascular Exam Cardiovascular Exam: RRR, +S1, +S2. absent: Murmur - GI/Abdominal Exam GI & Abdominal Exam: Soft, Normal Bowel Sounds. absent: Distended, Firm, Guarding, Tenderness, Mass, Organomegaly, Rebound - Extremities Exam Extremities Exam: Normal Inspection. absent: Calf Tenderness, Pedal Edema - Back Exam Back Exam: NORMAL INSPECTION - Neurological Exam Neurological Exam: Alert, Awake, Oriented x3 - Psychiatric Exam Psychiatric exam: Normal Affect, Normal Mood - Skin Skin Exam: Dry, Normal Color, Warm Assessment and Plan - Assessment and Plan (Free Text) Assessment: 87 yo F with PMH of ulcerative colitis, c. diff colitis, CMV colitis, PNA, HLD, postherpetic neuralgia admitted for evaluation and treatment for UC flare, weight loss, generalized weakness, s/p flexible sigmoiodoscopy showing diffuse inflammation, awaiting CMV biopsy, currently on therapy for UC flare: Generalized weakness: 2/2 anemia 2/2 underlying UC flare, rule out malignancy - Hgb stable - iron studies show iron deficiency anemia. Given 1 dose of venofer 200 mg yesterday. will start on ol. - CT chest, abd, pelvis shows left medial breast mass, 1.2x1.2x2.1 cm. Sclerotic bone lesion at T5 vertebral body. Consider mammography and bone scan. Will discuss with patient regarding further testing inpatient vs outpatient. Spoke with Dr Peterson and updated him regarding patient's findings. - IVF decreased to 50. will wean down further once pt tolerating PO diet well. - GI consulted. Appreciate recs. - Mesalamine rectal and PO, Solucortef IV, Hydrocortisone enema per GI - Neurology approved for remicade treatment currently. unable to provide inpatient due to large patient copayment - transfuse to keep Hgb > 7 - Protonix Diarrhea: 2/2 ulcerative colitis vs CMV colitis - Pt has a history of CMV colitis, ulcerative colitis, c. diff colitis - C diff negative - improving diarrhea/BRPBR episodes - Mesalamine rectal and PO, IV solucortef, hydrocotisone enema - TSH normal - Monitor - flexible sigmoidoscopy shows diffuse inflammation. pending official report. Hypokalemia: 2/2 diarrhea - repleted. recheck K at 4 PM - daily CMP HLD - Cont Lipitor H/o HSV, postherpetic neuralgia - Cont carbemazepine, neurontin GI/DVT PPx - Protonix - SCDs Dispo: Needs SW for better insurance coverage. Gi wants ganciclovir administered inpatient if CMV biopsy is positive. Pt seen and discussed in detail with Dr Millan. Susan Guadarrama, PGY1 <Benjamín Millan - Last Filed: 07/24/17 13:33> Objective - Vital Signs/Intake and Output Vital Signs (last 24 hours): Temp Pulse Resp BP Pulse Ox 97.9 F 80 20 134/77 96 07/24/17 12:00 07/24/17 12:00 07/24/17 12:00 07/24/17 12:00 07/24/17 06:00 Intake and Output: 07/24/17 07/24/17 06:59 18:59 Intake Total 1100 Output Total 0 Balance 1100 - Medications Medications: Current Medications Atorvastatin Calcium (Lipitor) 20 mg PO DIN [facility] Last Admin: 07/23/17 18:01 Dose: 20 mg Carbamazepine (Tegretol) 100 mg PO DAILY [facility] PRN Reason: Protocol Last Admin: 07/24/17 09:05 Dose: 100 mg Cyanocobalamin (Vitamin B12 100 Mcg Tab) 500 mcg PO DAILY [facility] Last Admin: 07/24/17 09:05 Dose: 500 mcg Gabapentin (Neurontin) 300 mg PO DAILY [facility]; Protocol PRN Reason: PAIN, MOD [4-7] Last Admin: 07/23/17 09:38 Dose: 300 mg Hydrocortisone (Cortenema) 100 mg RC DAILY [facility] Last Admin: 07/24/17 10:51 Dose: 100 mg Hydrocortisone Sodium Succinate (Solu-Cortef) 100 mg IVP BID [facility] Last Admin: 07/24/17 09:06 Dose: 100 mg Sodium Chloride (Sodium Chloride 0.9%) 1,000 mls @ 50 mls/hr IV .Q20H [facility] Mesalamine (Asacol Hd 800mg) 800 mg PO TID [facility] Last Admin: 07/24/17 09:06 Dose: 800 mg Mesalamine (Rowasa Enema) 4 gm RC HS [facility] Last Admin: 07/23/17 23:09 Dose: 4 gm Multivitamins/Minerals (Therapeutic-M Tab) 1 tab PO DAILY [facility] Last Admin: 07/24/17 09:04 Dose: 1 tab Pantoprazole Sodium (Protonix Inj) 40 mg IVP Q12 [facility] Last Admin: 07/24/17 09:06 Dose: 40 mg Potassium Chloride (Klor-Con 10) 40 meq PO STAT [facility] Stop: 07/24/17 13:09 - Labs Labs: 07/24/17 06:00 07/24/17 06:00 PT 11.3 SECONDS (9.4-12.5) 07/20/17 10:35 INR 0.98 (0.93-1.08) 07/20/17 10:35 APTT 33.1 Seconds (25.1-36.5) 07/20/17 10:35 Attending/Attestation - Attestation I have personally seen and examined this patient.: Yes I have fully participated in the care of the patient.: Yes I have reviewed all pertinent clinical information, including history, physical exam and plan: Yes Notes (Text): 07/24/17 13:28 87 year old female with past medical history of ulcerative colitis, CMV colitis , dyslipidemia and postherpetic neuralgia who presented with complaint of rectal bleeding and generalized weakness. She was started on iv steroids and mesalamine. She was seen by GI and had flex sigmoidoscopy on Tuesday which showed severe inflammation and she was also started on mesalamine enema HS and cortenema AM per GI. Stool cutlure and cdiff study were negative. Symptoms are slowly improving. Biopsy is pending. CT chest/abdomen/pelvis showed breast and sclerotic vertebral bone lesions. Findings were discussed with the patient and PMD. Recommended outpatient workup. Will replete and repeat potassium for hypokalemia. Physical therapy evaluation was requested. Benjamín Millan MD Hospitalist.
--- NOTE | 2017-07-25 05:23 | PN ---
DATE: 07/24/2017 SUBJECTIVE: This patient was seen and evaluated earlier today. Patient still complains of loose bowel movements. She states the bleeding has subsided. PHYSICAL EXAMINATION: VITAL SIGNS: Temperature is afebrile. Blood pressure 113/63, pulse 76, respirations 18, O2 saturation 95%. HEENT: Atraumatic, anicteric. NECK: Supple. HEART: S1 and S2 heard. LUNGS: Bilateral air entry present. ABDOMEN: Soft. There is no mass palpable. No tenderness. EXTREMITIES: No cyanosis, no clubbing. LABORATORY DATA: Hemoglobin was 8.5, hematocrit 25.7, WBC 8.6, platelets 351. Chemistry showed potassium is 2.7. IMPRESSION: This is an 87-year-old patient with ulcerative colitis, admitted with exacerbation. Patient had bleeding per rectum and also anemic. Flexible sigmoidoscopy showed severe inflammation extending from the rectum all the way up. Patient also had multiple biopsies taken and sent for Cytomegalovirus colitis. 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 History of Clostridium difficile. Patient is presently on hydrocortisone and also , and also mesalamine at nighttime. Patient is on hydrocortisone IV 100 mg every 12 hourly, also on mesalamine. RECOMMENDATIONS: 1. Since the patient has CMV colitis in the past, we need to await for the biopsy report. 2. Patient has problem with the medications and poorly compliant. We will request social science teacher's input to evaluating her . 3. Slowly advance the diet. Requested . Patient has history of C. difficile colitis and also CMV colitis in addition to history of ulcerative colitis in the past. Darcy Shrestha MD
[2017-07-25 06:10] LABS: BASO # 0.03 K/mm3 (0.0-2.0); BASO % 0.3 % (0.0-3.0); EOS % 0.1 % (1.5-5.0); GRAN # 5.29 (1.4-6.5); HEMOGLOBIN 8.4 g/dL (12.0-16.0); LYMPH # 3.1 (1.2-3.4); LYMPH % 33.6 % (22.0-35.0); MEAN CELL VOLUME 84.1 fl (80.0-105.0); MEAN CORPUSCULAR HEMOGLOBIN 27.9 pg (25.0-35.0); MEAN CORPUSCULAR HGB CONC 33.2 g/dl (31.0-37.0); MEAN PLATELET VOLUME 8.8 fl (7.0-11.0); MONO # 0.8 (0.1-0.6); RBC 3.01 10^6/uL (3.5-6.1); WHITE BLOOD COUNT 9.3 10^3/ul (4.5-11.0)
[2017-07-25 06:22] VITALS: O2SAT 97
[2017-07-25 06:31] LABS: ALBUMIN 2.8 g/dL (3.0-4.8); ALT/SGPT 28 U/L (7-56); AST/SGOT 34 U/L (14-36); BLOOD UREA NITROGEN 4 mg/dL (7-21); CALCIUM 8.2 mg/dL (8.4-10.5); GFR AFRICAN-AMERICAN > 60; GFR NON-AFRICAN AMERICAN > 60
[2017-07-25] MEDS ORDERED: Potassium Chloride 20 mEq ER Tab PO STA ×2 (07:42→15:21)
--- NOTE | 2017-07-25 08:29 | CARD ---
APPROVED REPORT EKG Measurement Heart [id number] <Conclusion> Normal sinus rhythm NSSTW changes T wave now inverted V 2
[2017-07-25] MEDS: Mesalamine 800 mg DR Tab PO SCH ×2 (09:41→13:57)
[2017-07-25] MEDS: Multivitamin With Minerals Tab PO SCH (09:45)
[2017-07-25] MEDS: Sodium Chloride 0.9% 1,000 ML IV SCH (10:29)
[2017-07-25 12:09] VITALS: BP 135/87; RESP 20; TEMP 98.3
--- NOTE | 2017-07-25 13:17 | CP.PCM.DIS ---
<Susan Guadarrama - Last Filed: 07/26/17 11:27> Provider - Provider Date of Admission: 07/20/17 13:49 Attending physician: Demetris Espinoza MD Primary care physician: Matt Peterson MD Consults: RICHARD Shrestha Time Spent in preparation of Discharge (in minutes): 60 Diagnosis - Discharge Diagnosis (1) Ulcerative colitis, acute Status: Acute (2) CMV (cytomegalovirus infection) Status: Acute (3) Rectal bleeding Status: Acute Hospital Course - Lab Results Lab Results: Micro Results 07/22/17 16:30 Stool Stool Culture - Final NO SALMONELLA, SHIGELLA OR CAMPYLOBACTER ISOLATED. 07/21/17 11:51 Stool Stool Culture - Final NO SALMONELLA, SHIGELLA OR CAMPYLOBACTER ISOLATED. 07/21/17 11:51 Stool C. difficile Antigen & Toxin A,B (M - Final Most Recent Lab Values WBC 9.3 10^3/ul (4.5-11.0) 07/25/17 05:30 RBC 3.01 10^6/uL (3.5-6.1) L 07/25/17 05:30 Hgb 8.4 g/dL (12.0-16.0) L 07/25/17 05:30 Hct 25.3 % (36.0-48.0) L 07/25/17 05:30 MCV 84.1 fl (80.0-105.0) 07/25/17 05:30 MCH 27.9 pg (25.0-35.0) 07/25/17 05:30 MCHC 33.2 g/dl (31.0-37.0) 07/25/17 05:30 RDW 17.0 % (11.5-14.5) H 07/25/17 05:30 Plt Count 332 10^3/uL (120.0-450.0) 07/25/17 05:30 MPV 8.8 fl (7.0-11.0) 07/25/17 05:30 Gran % 57.0 % (50.0-68.0) 07/25/17 05:30 Lymph % (Auto) 33.6 % (22.0-35.0) 07/25/17 05:30 [place] % (Auto) 9.0 % (1.0-6.0) H 07/25/17 05:30 Eos % (Auto) 0.1 % (1.5-5.0) L 07/25/17 05:30 Baso % (Auto) 0.3 % (0.0-3.0) 07/25/17 05:30 Gran # 5.29 (1.4-6.5) 07/25/17 05:30 Lymph # (Auto) 3.1 (1.2-3.4) 07/25/17 05:30 [place] # (Auto) 0.8 (0.1-0.6) H 07/25/17 05:30 Eos # (Auto) 0.0 (0.0-0.7) 07/25/17 05:30 Baso # (Auto) 0.03 K/mm3 (0.0-2.0) 07/25/17 05:30 PT 11.3 SECONDS (9.4-12.5) 07/20/17 10:35 INR 0.98 (0.93-1.08) 07/20/17 10:35 APTT 33.1 Seconds (25.1-36.5) 07/20/17 10:35 Sodium 144 mmol/L (132-148) 07/25/17 05:30 Potassium 3.2 mmol/L (3.6-5.0) L 07/25/17 05:30 Chloride 115 mmol/L (98-107) H 07/25/17 05:30 Carbon Dioxide 22 mmol/L (21-33) 07/25/17 05:30 Anion Gap 11 (10-20) 07/25/17 05:30 BUN 4 mg/dL (7-21) L 07/25/17 05:30 Creatinine 0.7 mg/dl (0.7-1.2) 07/25/17 05:30 Est GFR ( Amer) > 60 07/25/17 05:30 Est GFR (Non-Af Amer) > 60 07/25/17 05:30 Random Glucose 101 mg/dL (70-110) 07/25/17 05:30 Calcium 8.2 mg/dL (8.4-10.5) L 07/25/17 05:30 Phosphorus 2.9 mg/dL (2.5-4.5) 07/25/17 05:30 Magnesium 1.7 mg/dL (1.7-2.2) 07/25/17 05:30 Iron 18 ug/dL (45-180) L 07/20/17 10:35 TIBC 276 ug/dL (265-497) 07/20/17 10:35 % Saturation 7 % (20-55) L 07/20/17 10:35 Ferritin 11.8 ng/mL 07/20/17 10:35 Total Bilirubin < 0.1 mg/dL (0.2-1.3) L 07/25/17 05:30 AST 34 U/L (14-36) 07/25/17 05:30 ALT 28 U/L (7-56) 07/25/17 05:30 Alkaline Phosphatase 53 U/L (38-126) 07/25/17 05:30 Total Protein 5.6 g/dL (5.8-8.3) L 07/25/17 05:30 Albumin 2.8 g/dL (3.0-4.8) L 07/25/17 05:30 Globulin 2.8 gm/dL 07/25/17 05:30 Albumin/Globulin Ratio 1.0 (1.1-1.8) L 07/25/17 05:30 Lipase 60 U/L (23-300) 07/20/17 10:35 Vitamin B12 493 pg/mL (239-931) 07/20/17 10:35 Folate > 20.0 ng/mL 07/20/17 10:35 TSH 3rd Generation 1.92 mIU/mL (0.46-4.68) 07/22/17 06:30 Urine Color Yellow (YELLOW) 07/20/17 10:35 Urine Appearance Clear (CLEAR) 07/20/17 10:35 Urine pH 6.0 (4.7-8.0) 07/20/17 10:35 Ur Specific [place] 1.020 (1.005-1.035) 07/20/17 10:35 Urine Protein Negative mg/dL (<30 mg/dL) 07/20/17 10:35 Urine Glucose (UA) Negative mg/dL (NEGATIVE) 07/20/17 10:35 Urine Ketones Negative mg/dL (NEGATIVE) 07/20/17 10:35 Urine Blood Negative (NEGATIVE) 07/20/17 10:35 Urine Nitrate Negative (NEGATIVE) 07/20/17 10:35 Urine Bilirubin Negative (NEGATIVE) 07/20/17 10:35 Urine Urobilinogen 0.2 E.U./dL (<1 E.U./dL) 07/20/17 10:35 Ur Leukocyte Esterase Negative Ngozi/uL (NEGATIVE) 07/20/17 10:35 Blood Type O POSITIVE 07/20/17 10:35 Antibody Screen Negative 07/20/17 10:35 BBK History Checked Patient has bt 07/20/17 10:35 - Hospital Course Hospital Course: 87 year old female, with PMH ulcerative colitis, C diff colitis, CMV colitis, HLD, postherpetic neuralgia, noncompliance, presents for BRBPR for past 2 weeks. Pt admitted for UC flare, anemia, generalized weakness, weight loss. Pt treated for PO and rectal mesalamine, and PO and rectal hydrocortisone. Flex sigmoidoscopy showed diffuse inflammation, sent for CMV biopsy. Pt given venofer 200 mg IV and then started on PO iron for anemia. CT abd chest pelvis showed breast mass and sclerotic bone lesion on T12, discussed findings with patient. She states that she wants outpatient follow up for mammogram and bone scan. PT eval recommended CAIN, pt discharged to TCU for gaining her strength back and physical therapy rehab. Awaiting CMV biopsy, can be treated with Ganciclovir if positive as per GI. Case seen and discussed with Dr Espinoza. Discharge Exam - Head Exam Head Exam: ATRAUMATIC, NORMOCEPHALIC - Eye Exam Eye Exam: EOMI, PERRL. absent: Conjunctival injection, Nystagmus, Scleral icterus Pupil Exam: NORMAL ACCOMODATION, PERRL. absent: Fixed, Irregular, Unequal - ENT Exam ENT Exam: Mucous Membranes Moist - Neck Exam Neck exam: Full Rom - Respiratory Exam Respiratory Exam: Clear to PA & Lateral, NORMAL BREATHING PATTERN. absent: Accessory Muscle Use, Chest Wall Tenderness, Respiratory Distress, Stridor - Cardiovascular Exam Cardiovascular Exam: RRR, +S1, +S2 - GI/Abdominal Exam GI & Abdominal Exam: Normal Bowel Sounds, Soft. absent: Distended, Firm, Guarding, Mass, Organomegaly, Rebound, Rigid, Tenderness - Extremities Exam Extremities exam: normal inspection - Back Exam Back exam: NORMAL INSPECTION - Neurological Exam Neurological exam: Alert, Oriented x3 - Psychiatric Exam Psychiatric exam: Normal Affect, Normal Mood - Skin Skin Exam: Dry, Normal Color, Warm Discharge Plan - Follow Up Plan Condition: FAIR Disposition: REHAB FACILITY/REHAB UNIT Instructions: Gastrointestinal Bleeding, Clear Liquid Diet, Bloody Stools, Adult (DC), Normocytic Normochromic Anemia Additional Instructions: - Patient is currently transferred to TCU. All orders will be carried forward to TCU. Referrals: Matt Peterson MD [Primary Care Provider] - <Demetris Espinoza - Last Filed: 07/26/17 14:05> Provider - Provider Date of Admission: 07/20/17 13:49 Attending physician: Demetris Espinoza MD Primary care physician: Matt Peterson MD Hospital Course - Lab Results Lab Results: Micro Results 07/22/17 16:30 Stool Stool Culture - Final NO SALMONELLA, SHIGELLA OR CAMPYLOBACTER ISOLATED. 07/21/17 11:51 Stool Stool Culture - Final NO SALMONELLA, SHIGELLA OR CAMPYLOBACTER ISOLATED. 07/21/17 11:51 Stool C. difficile Antigen & Toxin A,B (M - Final Most Recent Lab Values WBC 9.3 10^3/ul (4.5-11.0) 07/25/17 05:30 RBC 3.01 10^6/uL (3.5-6.1) L 07/25/17 05:30 Hgb 8.4 g/dL (12.0-16.0) L 07/25/17 05:30 Hct 25.3 % (36.0-48.0) L 07/25/17 05:30 MCV 84.1 fl (80.0-105.0) 07/25/17 05:30 MCH 27.9 pg (25.0-35.0) 07/25/17 05:30 MCHC 33.2 g/dl (31.0-37.0) 07/25/17 05:30 RDW 17.0 % (11.5-14.5) H 07/25/17 05:30 Plt Count 332 10^3/uL (120.0-450.0) 07/25/17 05:30 MPV 8.8 fl (7.0-11.0) 07/25/17 05:30 Gran % 57.0 % (50.0-68.0) 07/25/17 05:30 Lymph % (Auto) 33.6 % (22.0-35.0) 07/25/17 05:30 [place] % (Auto) 9.0 % (1.0-6.0) H 07/25/17 05:30 Eos % (Auto) 0.1 % (1.5-5.0) L 07/25/17 05:30 Baso % (Auto) 0.3 % (0.0-3.0) 07/25/17 05:30 Gran # 5.29 (1.4-6.5) 07/25/17 05:30 Lymph # (Auto) 3.1 (1.2-3.4) 07/25/17 05:30 [place] # (Auto) 0.8 (0.1-0.6) H 07/25/17 05:30 Eos # (Auto) 0.0 (0.0-0.7) 07/25/17 05:30 Baso # (Auto) 0.03 K/mm3 (0.0-2.0) 07/25/17 05:30 PT 11.3 SECONDS (9.4-12.5) 07/20/17 10:35 INR 0.98 (0.93-1.08) 07/20/17 10:35 APTT 33.1 Seconds (25.1-36.5) 07/20/17 10:35 Sodium 144 mmol/L (132-148) 07/25/17 05:30 Potassium 3.2 mmol/L (3.6-5.0) L 07/25/17 05:30 Chloride 115 mmol/L (98-107) H 07/25/17 05:30 Carbon Dioxide 22 mmol/L (21-33) 07/25/17 05:30 Anion Gap 11 (10-20) 07/25/17 05:30 BUN 4 mg/dL (7-21) L 07/25/17 05:30 Creatinine 0.7 mg/dl (0.7-1.2) 07/25/17 05:30 Est GFR ( Amer) > 60 07/25/17 05:30 Est GFR (Non-Af Amer) > 60 07/25/17 05:30 Random Glucose 101 mg/dL (70-110) 07/25/17 05:30 Calcium 8.2 mg/dL (8.4-10.5) L 07/25/17 05:30 Phosphorus 2.9 mg/dL (2.5-4.5) 07/25/17 05:30 Magnesium 1.7 mg/dL (1.7-2.2) 07/25/17 05:30 Iron 18 ug/dL (45-180) L 07/20/17 10:35 TIBC 276 ug/dL (265-497) 07/20/17 10:35 % Saturation 7 % (20-55) L 07/20/17 10:35 Ferritin 11.8 ng/mL 07/20/17 10:35 Total Bilirubin < 0.1 mg/dL (0.2-1.3) L 07/25/17 05:30 AST 34 U/L (14-36) 07/25/17 05:30 ALT 28 U/L (7-56) 07/25/17 05:30 Alkaline Phosphatase 53 U/L (38-126) 07/25/17 05:30 Total Protein 5.6 g/dL (5.8-8.3) L 07/25/17 05:30 Albumin 2.8 g/dL (3.0-4.8) L 07/25/17 05:30 Globulin 2.8 gm/dL 07/25/17 05:30 Albumin/Globulin Ratio 1.0 (1.1-1.8) L 07/25/17 05:30 Lipase 60 U/L (23-300) 07/20/17 10:35 Vitamin B12 493 pg/mL (239-931) 07/20/17 10:35 Folate > 20.0 ng/mL 07/20/17 10:35 TSH 3rd Generation 1.92 mIU/mL (0.46-4.68) 07/22/17 06:30 Urine Color Yellow (YELLOW) 07/20/17 10:35 Urine Appearance Clear (CLEAR) 07/20/17 10:35 Urine pH 6.0 (4.7-8.0) 07/20/17 10:35 Ur Specific [place] 1.020 (1.005-1.035) 07/20/17 10:35 Urine Protein Negative mg/dL (<30 mg/dL) 07/20/17 10:35 Urine Glucose (UA) Negative mg/dL (NEGATIVE) 07/20/17 10:35 Urine Ketones Negative mg/dL (NEGATIVE) 07/20/17 10:35 Urine Blood Negative (NEGATIVE) 07/20/17 10:35 Urine Nitrate Negative (NEGATIVE) 07/20/17 10:35 Urine Bilirubin Negative (NEGATIVE) 07/20/17 10:35 Urine Urobilinogen 0.2 E.U./dL (<1 E.U./dL) 07/20/17 10:35 Ur Leukocyte Esterase Negative Ngozi/uL (NEGATIVE) 07/20/17 10:35 Blood Type O POSITIVE 07/20/17 10:35 Antibody Screen Negative 07/20/17 10:35 BBK History Checked Patient has bt 07/20/17 10:35 Attending/Attestation - Attestation I have personally seen and examined this patient.: Yes I have fully participated in the care of the patient.: Yes I have reviewed all pertinent clinical information, including history, physical exam and plan: Yes Notes (Text): 07/26/17 14:03 attending note; Patient seen and examined with resident. Patient is a 87 year old female with past medical history of ulcerative colitis , CMV colitis, dyslipidemia and postherpetic neuralgia who presented with complaint of rectal bleeding and generalized weakness. currently on IV steroids and mesalamine. She was seen by GI and had flex sigmoidoscopy on Tuesday which showed severe inflammation and she was also started on mesalamine enema HS and cortenema AM. biopsy results pending. stool culture is negative. C. difficile is negative. CT chest/abdomen/pelvis showed breast and sclerotic vertebral bone lesions. Findings were discussed with the patient and PMD. patient request outpatient workup. Physical therapy evaluation Appreciated. Transfer to TCU today. Monitor closely. Upon discharge The patient will follow-up with PMD Dr. Peterson.
--- NOTE | 2017-07-25 13:37 | CON ---
DATE: HISTORY OF PRESENT ILLNESS: This is an 87-year-old female with past medical history of ulcerative colitis and postherpetic neuralgia who was admitted with bleeding per rectum and generalized weakness. Called to evaluate the patient who was seen yesterday and the patient reports fatigue and weight loss for the past five months and still complaining of pain behind the left ear, neuralgic pain and was called to evaluate the patient. PAST MEDICAL HISTORY: Ulcerative colitis and postherpetic neuralgia. ALLERGIES: NO KNOWN DRUG ALLERGIES. SOCIAL HISTORY: Does not smoke, does not drink. PHYSICAL EXAMINATION: HEENT: Normocephalic, atraumatic. NECK: Supple. NEUROLOGIC: Alert, awake oriented x3. No aphasia. Cranial nerves II through XII are tested. Pupils are reactive. EOM intact. Visual field full. No facial asymmetry. Tongue is midline. Motor examination, moves all the extremities equally. Tone normal. Deep tendon reflexes 1+. Both plantars are downgoing. Sensory appears intact. Cerebellar, gait normal. IMPRESSION AND PLAN: An 87-year-old white female with past medical history of ulcerative colitis, postherpetic neuralgia was admitted with bleeding per rectum and the patient's neuralgic pain is under control and doing well. We will follow up. Alexander Raines MD
--- NOTE | 2017-07-25 14:35 | CP.PCM.PN ---
Subjective - Date & Time of Evaluation Date of Evaluation: 07/25/17 Time of Evaluation: 14:32 - Subjective Subjective: PGY- Progress note for Dr. Shrestha's service Patient seen and examined at bedside. No acute distress. Patient states that she is doing well. She denies abd pain, n/v, diarrhea or constipation. No blood noted in the stool. She is tolerating the diet. Objective - Vital Signs/Intake and Output Vital Signs (last 24 hours): Temp Pulse Resp BP Pulse Ox 98.3 F 77 20 135/87 97 07/25/17 12:00 07/25/17 12:00 07/25/17 12:00 07/25/17 12:00 07/25/17 06:00 Intake and Output: 07/25/17 07/25/17 06:59 18:59 Intake Total 720 Balance 720 - Medications Medications: Current Medications Atorvastatin Calcium (Lipitor) 20 mg PO DIN [facility] Last Admin: 07/24/17 17:46 Dose: 20 mg Carbamazepine (Tegretol) 100 mg PO DAILY [facility] PRN Reason: Protocol Last Admin: 07/25/17 09:41 Dose: 100 mg Cyanocobalamin (Vitamin B12 100 Mcg Tab) 500 mcg PO DAILY [facility] Last Admin: 07/25/17 10:27 Dose: 500 mcg Gabapentin (Neurontin) 300 mg PO DAILY PRN; Protocol PRN Reason: PAIN, MOD [4-7] Last Admin: 07/23/17 09:38 Dose: 300 mg Hydrocortisone (Cortenema) 100 mg RC DAILY [facility] Last Admin: 07/25/17 10:27 Dose: 100 mg Hydrocortisone Sodium Succinate (Solu-Cortef) 100 mg IVP BID [facility] Last Admin: 07/25/17 09:43 Dose: 100 mg Mesalamine (Asacol Hd 800mg) 800 mg PO TID [facility] Last Admin: 07/25/17 13:57 Dose: 800 mg Mesalamine (Rowasa Enema) 4 gm RC HS [facility] Last Admin: 07/24/17 21:01 Dose: 4 gm Multivitamins/Minerals (Therapeutic-M Tab) 1 tab PO DAILY [facility] Last Admin: 07/25/17 09:45 Dose: 1 tab Pantoprazole Sodium (Protonix Inj) 40 mg IVP Q12 [facility] Last Admin: 07/25/17 09:40 Dose: 40 mg - Labs Labs: 07/25/17 05:30 07/25/17 05:30 PT 11.3 SECONDS (9.4-12.5) 07/20/17 10:35 INR 0.98 (0.93-1.08) 07/20/17 10:35 APTT 33.1 Seconds (25.1-36.5) 07/20/17 10:35 - Constitutional Appears: Well, No Acute Distress - Head Exam Head Exam: ATRAUMATIC, NORMOCEPHALIC - Eye Exam Eye Exam: EOMI, Normal appearance - ENT Exam ENT Exam: Mucous Membranes Moist - Respiratory Exam Respiratory Exam: Clear to Ausculation Bilateral, NORMAL BREATHING PATTERN. absent: Decreased Breath Sounds, Rales, Rhonchi, Wheezes, Respiratory Distress - Cardiovascular Exam Cardiovascular Exam: REGULAR RHYTHM, +S1, +S2. absent: Bradycardia, Tachycardia , Murmur - GI/Abdominal Exam GI & Abdominal Exam: Soft, Normal Bowel Sounds. absent: Distended, Firm, Guarding, Tenderness, Hernia - Extremities Exam Extremities Exam: Normal Inspection. absent: Pedal Edema, Tenderness - Neurological Exam Neurological Exam: absent: Alert, Awake, Oriented x3 - Psychiatric Exam Psychiatric exam: Normal Affect, Normal Mood - Skin Skin Exam: Dry, Intact, Normal Color, Warm Assessment and Plan - Assessment and Plan (Free Text) Assessment: 87 yo female withe PMH of ulcerative colitis, cytomegalovirus colitis, c. diff admitted for exacerbation as well blood per rectum. Plan: - flexible sigmoidscopy showed severe inflammation extending from rectum, biopsies pending - continue hydrocortisone and mesalamine HD - improvement in diarrhea - slowly advance diet - once biopsy has returned patient will need to be discharged with PO steroids and mesalamine case reviewed and discussed with Dr. Shrestha
[2017-07-25 16:23] VITALS: PULSE 88
== END 2017-07-25 16:31 | DRG 386 ==
LOC: ED 08:44 → ERH 13:49 → 5RSO 16:05 → 2RNO 20:34
PROVIDERS: ADMIT Hospitalist; ATTEND Internal Medicine
PROC: 0DBN8ZX Excision of Sigmoid Colon, Via Natural or Artificial Opening Endoscopic, Diagnostic (ICD-10-PCS; 2017-07-22)
PROC: 0DBP8ZX Excision of Rectum, Via Natural or Artificial Opening Endoscopic, Diagnostic (ICD-10-PCS; principal; 2017-07-22 14:15)
DX: K51.911 Ulcerative colitis, unspecified with rectal bleeding (principal); B25.8 Other cytomegaloviral diseases; A08.39 Other viral enteritis; B02.29 Other postherpetic nervous system involvement; E78.00 Pure hypercholesterolemia, unspecified; E87.6 Hypokalemia; J44.9 Chronic obstructive pulmonary disease, unspecified; D50.9 Iron deficiency anemia, unspecified; Z91.14 Patient's other noncompliance with medication regimen; Z91.19 Patient's noncompliance with other medical treatment and regimen; Z87.891 Personal history of nicotine dependence

== ENCOUNTER 2017-07-25 16:14 | Inpatient (IN) | payer OTHER, MEDICARE ==
[2017-07-25 17:31] VITALS: BMI 26.7
[2017-07-25] MEDS: Mesalamine 800 mg DR Tab PO SCH (17:52)
--- NOTE | 2017-07-26 07:05 | CP.PCM.HP ---
<Susan Guadarrama - Last Filed: 07/26/17 11:38> History of Present Illness - History of Present Illness History of Present Illness: Susan Guadarrama, PGY1, H&P for Dr Espinoza: CC: BRBPR, generalized weakness 87 year old female, with PMH ulcerative colitis, C diff colitis, CMV colitis, HLD, postherpetic neuralgia, noncompliance, presents for BRBPR for past 2 weeks. Pt admitted for UC flare, anemia, generalized weakness, weight loss. Pt treated for PO and rectal mesalamine, and PO and rectal hydrocortisone. Flex sigmoidoscopy showed diffuse inflammation, sent for CMV biopsy. Pt given venofer 200 mg IV and then started on PO iron for anemia. CT abd chest pelvis showed breast mass and sclerotic bone lesion on T12, discussed findings with patient. She states that she wants outpatient follow up for mammogram and bone scan. PT eval recommended CAIN, pt discharged to TCU for gaining her strength back and physical therapy rehab. Awaiting CMV biopsy, can be treated with Ganciclovir if positive as per GI. 12 point ROS obtained and negative, except as per HPI. PMD: Dr. Peterson Worm Sorter: Dr. Shrestha PMH: ulcerative colitis, c. diff colitis, CMV colitis, PNA, HLD, postherpetic neuralgia PSH: B/L wrist surgery, cataracts All: NKDA FHx: Colon CA SH: Denies tobacco, EtOH, and illicit drug use Medications: Reviewed as per MAR Prev visits: 03/2017 at [facility] [place] for brbpr, ulcerative colitis flare. Present on Admission - Present on Admission Any Indicators Present on Admission: No History of DVT/PE: No History of Uncontrolled Diabetes: No Urinary Catheter: No Decubitus Ulcer Present: No Review of Systems - Review of Systems All systems: reviewed and no additional remarkable complaints except Review of Systems: as per HPI Past Patient History - Infectious Disease Hx of Infectious Diseases: None - Tetanus Immunizations Tetanus Immunization: Unknown - Past Social History Smoking Status: Former Smoker - CARDIAC Hx Hypercholesterolemia: Yes - PULMONARY Hx Respiratory Disorders: Yes Hx Pneumonia: Yes - NEUROLOGICAL Other/Comment: Shingles 2017, residual burning pain to left ear left religious left chin and under right eye, post herpertic neuralgia - HEENT Hx HEENT Problems: Yes (eyeglasses) Hx Cataracts: Yes (b/l sx) - RENAL Hx Chronic Kidney Disease: No - ENDOCRINE/METABOLIC Hx Endocrine Disorders: No - HEMATOLOGICAL/ONCOLOGICAL Hx Blood Transfusions: Yes Hx Blood Transfusion Reaction: No - INTEGUMENTARY Hx Dermatological Problems: Yes Other/Comment: lump under r knee from old fall injury - MUSCULOSKELETAL/RHEUMATOLOGICAL Hx Arthritis: Yes Hx Falls: Yes Hx Fractures: Yes - GASTROINTESTINAL Hx Gastrointestinal Disorders: Yes Hx Crohn's Disease: Yes Hx Diverticulitis: Yes - GENITOURINARY/GYNECOLOGICAL Hx Genitourinary Disorders: No - PSYCHIATRIC Hx Substance Use: No - SURGICAL HISTORY Hx Surgeries: Yes - ANESTHESIA Hx Anesthesia Reactions: No Hx Malignant Hyperthermia: No Meds Allergies/Adverse Reactions: Allergies Allergy/AdvReac Type Severity Reaction Status Date / Time No Known Allergies Allergy Verified 07/25/17 19:47 Physical Exam - Constitutional Appears: Non-toxic, No Acute Distress - Head Exam Head Exam: ATRAUMATIC, NORMOCEPHALIC - Eye Exam Eye Exam: EOMI, PERRL. absent: Conjunctival injection, Nystagmus, Scleral icterus Pupil Exam: NORMAL ACCOMODATION, PERRL. absent: Fixed, Irregular, Unequal - ENT Exam ENT Exam: Mucous Membranes Moist - Neck Exam Neck exam: Positive for: Full Rom - Respiratory Exam Respiratory Exam: Clear to Auscultation Bilateral, NORMAL BREATHING PATTERN. absent: Accessory Muscle Use, Rhonchi, Wheezes, Stridor - Cardiovascular Exam Cardiovascular Exam: RRR, +S1, +S2. absent: Systolic Murmur - GI/Abdominal Exam GI & Abdominal Exam: Normal Bowel Sounds, Soft. absent: Firm, Guarding, Mass, Organomegaly, Rebound, Rigid, Tenderness - Extremities Exam Extremities exam: Positive for: normal inspection. Negative for: calf tenderness, pedal edema - Back Exam Back exam: NORMAL INSPECTION - Neurological Exam Neurological exam: Alert, Oriented x3 - Psychiatric Exam Psychiatric exam: Normal Affect, Normal Mood - Skin Skin Exam: Normal Color, Warm Results - Vital Signs Recent Vital Signs: Last Vital Signs Temp 97.9 F 07/25/17 17:18 Pulse 88 07/25/17 17:18 Resp 19 07/25/17 17:18 BP 137/72 07/25/17 17:18 Pulse Ox Assessment & Plan - Assessment and Plan (Free Text) Assessment: 87 yo F with PMH of ulcerative colitis, c. diff colitis, CMV colitis, PNA, HLD, postherpetic neuralgia admitted for UC flare, s/o flexible sigmoidoscopy, undergoing treatment for flare and awaiting CMV biopsy results. Physical therapy eval recommended CAIN, admitted to TCU for rehab: 87 yo F with PMH of ulcerative colitis, c. diff colitis, CMV colitis, PNA, HLD, postherpetic neuralgia admitted for evaluation and treatment for UC flare, weight loss, generalized weakness, s/p flexible sigmoiodoscopy showing diffuse inflammation, awaiting CMV biopsy, currently on therapy for UC flare: Generalized weakness: 2/2 deconditioning vs anemia 2/2 underlying UC flare, rule out malignancy - Transferred to TCU for rehab - Hgb stable - iron studies show iron deficiency anemia. Given 1 dose of venofer 200 mg yesterday. on feosol. - CT chest, abd, pelvis shows left medial breast mass, 1.2x1.2x2.1 cm. Sclerotic bone lesion at T5 vertebral body. Consider mammography and bone scan. Will discuss with patient regarding further testing inpatient vs outpatient. Spoke with Dr Peterson and updated him regarding patient's findings. Pt wants outpatient follow up. - GI consulted. Appreciate recs. - Mesalamine rectal and PO, Solucortef IV, Hydrocortisone enema per GI - Neurology approved for remicade treatment currently. unable to provide inpatient due to large patient copayment - transfuse to keep Hgb > 7 - Protonix Diarrhea: 2/2 ulcerative colitis vs CMV colitis - Pt has a history of CMV colitis, ulcerative colitis, c. diff colitis - C diff negative - diarrhea, no BRBPR episodes - Mesalamine rectal and PO, IV solucortef, hydrocotisone enema - TSH normal - Monitor - flexible sigmoidoscopy shows diffuse inflammation. pending official report. - pending CMV biopsy results Hypokalemia: 2/2 diarrhea - Kdur 40 Po given - Daily Kdur 20 meq - daily CMP HLD - Cont Lipitor H/o HSV, postherpetic neuralgia - Cont carbemazepine, neurontin GI/DVT PPx - Protonix - SCDs Dispo: Needs for better insurance coverage. Gi wants ganciclovir administered inpatient if CMV biopsy is positive. Pt seen and discussed in detail with Dr sEpinoza. Susan Guadarrama PGY1 - Date & Time Date: 07/26/17 Time: 11:39 <Demetris Espinoza - Last Filed: 07/26/17 14:07> Results - Vital Signs Recent Vital Signs: Last Vital Signs Temp 97.9 F 07/25/17 17:18 Pulse 88 07/25/17 17:18 Resp 19 07/25/17 17:18 BP 137/72 07/25/17 17:18 Pulse Ox Attending/Attestation - Attestation I have personally seen and examined this patient.: Yes I have fully participated in the care of the patient.: Yes I have reviewed all pertinent clinical information: Yes Notes (Text): 07/26/17 14:06 attending note; Patient seen and examined with resident in TCU. Patient is complaining of diarrhea. Denies any blood in the stool. Tolerating regular diet. Denies any other complaints. Patient is a 87 year old female with past medical history of ulcerative colitis , CMV colitis, dyslipidemia and postherpetic neuralgia who presented with complaint of rectal bleeding and generalized weakness. currently on IV steroids and mesalamine. She was seen by GI and had flex sigmoidoscopy on Tuesday which showed severe inflammation and she was also started on mesalamine enema HS and cortenema AM. biopsy results pending. stool culture is negative. C. difficile is negative. continue physical therapy in TCU. Upon discharge The patient will follow-up with PMD Dr. Peterson.
[2017-07-26] MEDS: Mesalamine 800 mg DR Tab PO SCH ×3 (09:43→17:19)
[2017-07-26] MEDS: Multivitamin With Minerals Tab PO SCH (09:45)
[2017-07-26] MEDS ORDERED: Potassium Chloride 20 mEq ER Tab PO STA (10:45)
--- NOTE | 2017-07-26 12:19 | CP.PCM.PN ---
Subjective - Date & Time of Evaluation Date of Evaluation: 07/26/17 Time of Evaluation: 11:00 - Subjective Subjective: Seen and examined at the bedside, chart reviewed. Patient denies nausea, vomiting, or abdominal pain. Bowel movements are better, does not notice any blood. Reports very good appetite. No reports of fever or chills. Still awaiting colon biopsy. Offers no new complaints. Objective - Vital Signs/Intake and Output Vital Signs (last 24 hours): Temp Pulse Resp BP Pulse Ox 97.9 F 88 19 137/72 07/25/17 17:18 07/25/17 17:18 07/25/17 17:18 07/25/17 17:18 Intake and Output: 07/26/17 07/26/17 06:59 18:59 Intake Total 420 Balance 420 - Medications Medications: Current Medications Atorvastatin Calcium (Lipitor) 20 mg PO DIN [facility] PRN Reason: Protocol Carbamazepine (Tegretol) 100 mg PO DAILY [facility] PRN Reason: Protocol Last Admin: 07/26/17 09:44 Dose: 100 mg Cyanocobalamin (Vitamin B12 100 Mcg Tab) 500 mcg PO DAILY [facility] PRN Reason: Protocol Last Admin: 07/26/17 09:45 Dose: 500 mcg Ferrous Sulfate (Feosol) 324 mg PO DAILY [facility] Last Admin: 07/26/17 12:02 Dose: 324 mg Gabapentin (Neurontin) 300 mg PO DAILY PRN; Protocol PRN Reason: Pain, moderate (4-7) Hydrocortisone (Cortenema) 100 mg RC DAILY [facility] Last Admin: 07/26/17 09:52 Dose: 100 mg Hydrocortisone Sodium Succinate (Solu-Cortef) 100 mg IVP 0600,1800 [facility] PRN Reason: Protocol Mesalamine (Rowasa Enema) 4 gm RC HS [facility] PRN Reason: Protocol Last Admin: 07/25/17 21:51 Dose: Not Given Mesalamine (Asacol Hd 800mg) 800 mg PO TID [facility] Last Admin: 07/26/17 09:43 Dose: 800 mg Multivitamins/Minerals (Therapeutic-M Tab) 1 tab PO DAILY [facility] PRN Reason: Protocol Last Admin: 07/26/17 09:45 Dose: 1 tab Pantoprazole Sodium (Protonix Inj) 40 mg IVP Q12 [facility] PRN Reason: Protocol Last Admin: 07/26/17 09:43 Dose: 40 mg Potassium Chloride (K-Dur 20 Meq Er Tab) 20 meq PO 0800 [facility] - Constitutional Appears: No Acute Distress - Head Exam Head Exam: NORMOCEPHALIC - Eye Exam Eye Exam: Normal appearance. absent: Scleral icterus - ENT Exam ENT Exam: Mucous Membranes Moist - Neck Exam Neck Exam: Normal Inspection - Respiratory Exam Respiratory Exam: NORMAL BREATHING PATTERN. absent: Respiratory Distress - Cardiovascular Exam Cardiovascular Exam: +S1, +S2 - GI/Abdominal Exam GI & Abdominal Exam: Soft, Normal Bowel Sounds. absent: Guarding, Tenderness, Rebound - Extremities Exam Extremities Exam: Pedal Edema. absent: Calf Tenderness - Neurological Exam Neurological Exam: Alert, Awake, Oriented x3 Assessment and Plan - Assessment and Plan (Free Text) Assessment: Assessment: Rectal bleeding may be secondary to Exacerbation of ulcerative colitis, s/p flexsig s/p BX r/o CMV Noncompliance with medication H/O C. difficile colitis History of CMV colitis Postherpetic neuralgia Anemia Plan: regular diet Fu colon BX Trend H&H and monitor GI bleeding on PPI DVT prophylaxis on Iv steroids continue Melasamine/ cortenema on Iron supplement Seen and discussed with Dr. Shrestha.
[2017-07-27] MEDS: Pantoprazole 40 mg EC Tab PO SCH (05:32)
[2017-07-27 07:12] LABS: BASO # 0.02 K/mm3 (0.0-2.0); BASO % 0.2 % (0.0-3.0); EOS % 0.1 % (1.5-5.0); GRAN # 7.46 (1.4-6.5); GRAN % 63.9 % (50.0-68.0); HEMOGLOBIN 9.3 g/dL (12.0-16.0); LYMPH # 3.5 (1.2-3.4); LYMPH % 29.9 % (22.0-35.0); MEAN CELL VOLUME 82.6 fl (80.0-105.0); MEAN CORPUSCULAR HEMOGLOBIN 27.4 pg (25.0-35.0); MEAN CORPUSCULAR HGB CONC 33.2 g/dl (31.0-37.0); MONO # 0.7 (0.1-0.6); MONO % 5.9 % (1.0-6.0); RBC 3.39 10^6/uL (3.5-6.1); RED CELL DISTRIBUTION WIDTH 16.8 % (11.5-14.5); WHITE BLOOD COUNT 11.7 10^3/ul (4.5-11.0)
[2017-07-27 07:32] LABS: BLOOD UREA NITROGEN 11 mg/dL (7-21); GFR AFRICAN-AMERICAN > 60; GFR NON-AFRICAN AMERICAN > 60
[2017-07-27] MEDS: Potassium Chloride 20 mEq ER Tab PO SCH ×2 (08:39→17:20)
[2017-07-27] MEDS ORDERED: Potassium Chloride 20 mEq ER Tab PO ONE (09:41)
[2017-07-27] MEDS: Mesalamine 800 mg DR Tab PO SCH ×3 (10:05→17:20)
[2017-07-27] MEDS: Multivitamin With Minerals Tab PO SCH (10:12)
[2017-07-27] MEDS: carBAMazepine Chew Tab 100 MG Chew Tab PO SCH (10:12)
[2017-07-28] MEDS: Pantoprazole 40 mg EC Tab PO SCH (05:38)
[2017-07-28] MEDS: Potassium Chloride 20 mEq ER Tab PO SCH ×2 (08:05→17:18)
[2017-07-28] MEDS: Mesalamine 800 mg DR Tab PO SCH ×3 (09:54→17:29)
[2017-07-28] MEDS: carBAMazepine Chew Tab 100 MG Chew Tab PO SCH (09:55)
[2017-07-28] MEDS: Multivitamin With Minerals Tab PO SCH (09:55)
--- NOTE | 2017-07-28 14:40 | CP.PCM.PN ---
<Susan Guadarrama - Last Filed: 07/28/17 14:35> Subjective - Date & Time of Evaluation Date of Evaluation: 07/28/17 Time of Evaluation: 08:00 - Subjective Subjective: Pt seen and examined at bedside. No acute events overnight. Pt reports 1 episode of loose bowel movement overnight, nonbloody. Denies abdominal pain, fever, chills, rectal soreness, urinary symptoms. Objective - Vital Signs/Intake and Output Vital Signs (last 24 hours): Temp Pulse Resp BP Pulse Ox 98 F 67 16 119/71 96 07/28/17 10:00 07/28/17 10:00 07/28/17 10:00 07/28/17 10:00 07/27/17 16:00 Intake and Output: 07/28/17 07/28/17 06:59 18:59 Intake Total 420 Balance 420 - Medications Medications: Current Medications Atorvastatin Calcium (Lipitor) 20 mg PO DIN [facility] PRN Reason: Protocol Last Admin: 07/27/17 17:20 Dose: 20 mg Carbamazepine (Tegretol) 100 mg PO DAILY [facility] PRN Reason: Protocol Last Admin: 07/28/17 09:55 Dose: 100 mg Cyanocobalamin (Vitamin B12 100 Mcg Tab) 500 mcg PO DAILY [facility] PRN Reason: Protocol Last Admin: 07/28/17 09:56 Dose: 500 mcg Ferrous Sulfate (Feosol) 324 mg PO DAILY [facility] Last Admin: 07/28/17 09:55 Dose: 324 mg Gabapentin (Neurontin) 300 mg PO DAILY PRN; Protocol PRN Reason: Pain, moderate (4-7) Hydrocortisone (Cortenema) 100 mg RC DAILY [facility] Last Admin: 07/28/17 10:28 Dose: 100 mg Mercaptopurine (6-Mp) 50 mg PO DAILY [facility] Last Admin: 07/28/17 14:08 Dose: 50 mg Mesalamine (Rowasa Enema) 4 gm RC HS [facility] PRN Reason: Protocol Last Admin: 07/27/17 21:25 Dose: 4 gm Mesalamine (Asacol Hd 800mg) 800 mg PO TID [facility] Last Admin: 07/28/17 13:09 Dose: 800 mg Multivitamins/Minerals (Therapeutic-M Tab) 1 tab PO DAILY [facility] PRN Reason: Protocol Last Admin: 07/28/17 09:55 Dose: 1 tab Pantoprazole Sodium (Protonix Ec Tab) 40 mg PO 0600 [facility] Last Admin: 07/28/17 05:38 Dose: 40 mg Potassium Chloride (K-Dur 20 Meq Er Tab) 20 meq PO 0800 [facility] Last Admin: 07/28/17 08:05 Dose: 20 meq Potassium Chloride (K-Dur 20 Meq Er Tab) 20 meq PO 1800 [facility] Last Admin: 07/27/17 17:20 Dose: 20 meq Prednisone (Prednisone Tab) 20 mg PO BID [facility] - Labs Labs: 07/27/17 06:30 07/27/17 06:30 - Additional Findings Additional findings: - Constitutional Appears: Non-toxic, No Acute Distress - Head Exam Head Exam: ATRAUMATIC, NORMOCEPHALIC - Eye Exam Eye Exam: EOMI, PERRL. absent: Conjunctival injection, Nystagmus, Scleral icterus Pupil Exam: NORMAL ACCOMODATION, PERRL. absent: Fixed, Irregular, Unequal - ENT Exam ENT Exam: Mucous Membranes Moist - Neck Exam Neck exam: Positive for: Full Rom - Respiratory Exam Respiratory Exam: Clear to Auscultation Bilateral, NORMAL BREATHING PATTERN. absent: Accessory Muscle Use, Rhonchi, Wheezes, Stridor - Cardiovascular Exam Cardiovascular Exam: RRR, +S1, +S2. absent: Systolic Murmur - GI/Abdominal Exam GI & Abdominal Exam: Normal Bowel Sounds, Soft. absent: Firm, Guarding, Mass, Organomegaly, Rebound, Rigid, Tenderness - Extremities Exam Extremities exam: Positive for: normal inspection. Negative for: calf tenderness, pedal edema - Back Exam Back exam: NORMAL INSPECTION - Neurological Exam Neurological exam: Alert, Oriented x3 - Psychiatric Exam Psychiatric exam: Normal Affect, Normal Mood - Skin Skin Exam: Normal Color, Warm Assessment and Plan - Assessment and Plan (Free Text) Assessment: 87 yo F with PMH of ulcerative colitis, c. diff colitis, CMV colitis, PNA, HLD, postherpetic neuralgia admitted for evaluation and treatment for UC flare, s/p flexible sigmoiodoscopy showing diffuse inflammation, awaiting CMV biopsy, currently on therapy for UC flare. Physical therapy eval recommended [facility], admitted to TCU for rehab: Generalized weakness: 2/2 deconditioning vs anemia 2/2 underlying UC flare, rule out malignancy - Transferred to TCU for rehab - Hgb stable - iron studies show iron deficiency anemia. Given 1 dose of venofer 200 mg yesterday. on feosol. - CT chest, abd, pelvis shows left medial breast mass, 1.2x1.2x2.1 cm. Sclerotic bone lesion at T5 vertebral body. Consider mammography and bone scan. Will discuss with patient regarding further testing inpatient vs outpatient. Spoke with Dr Peterson and updated him regarding patient's findings. Pt wants outpatient follow up. - GI consulted. Appreciate recs. - Mesalamine rectal and PO, prednisone 30 mg PO BID, Hydrocortisone enema per GI. Started Mercaptopurine 50 mg PO daily. - Neurology approved for remicade treatment currently. unable to provide inpatient due to large patient copayment - transfuse to keep Hgb > 7 - Protonix Diarrhea: 2/2 ulcerative colitis vs CMV colitis - Pt has a history of CMV colitis, ulcerative colitis, c. diff colitis - C diff negative - improving - Mesalamine rectal and PO, prednisone, hydrocotisone enema, mercaptopurine - TSH normal - Monitor - flexible sigmoidoscopy shows diffuse inflammation. pending official report. - pending CMV biopsy results Hypokalemia: 2/2 diarrhea - Kdur 40 Po given - Daily Kdur 40 meq HLD - Cont Lipitor H/o HSV, postherpetic neuralgia - Cont carbemazepine, neurontin GI/DVT PPx - Protonix - SCDs Dispo: Needs SW for better insurance coverage. Gi wants ganciclovir administered inpatient if CMV biopsy is positive. Pt seen and discussed in detail with Dr Espinoza. Susan Guadarrama, PGY1 <Demetris Espinoza - Last Filed: 07/28/17 15:46> Objective - Vital Signs/Intake and Output Vital Signs (last 24 hours): Temp Pulse Resp BP Pulse Ox 98 F 67 16 119/71 96 07/28/17 10:00 07/28/17 10:00 07/28/17 10:00 07/28/17 10:00 07/27/17 16:00 Intake and Output: 07/28/17 07/28/17 06:59 18:59 Intake Total 420 Balance 420 - Medications Medications: Current Medications Atorvastatin Calcium (Lipitor) 20 mg PO DIN [facility] PRN Reason: Protocol Last Admin: 07/27/17 17:20 Dose: 20 mg Carbamazepine (Tegretol) 100 mg PO DAILY [facility] PRN Reason: Protocol Last Admin: 07/28/17 09:55 Dose: 100 mg Cyanocobalamin (Vitamin B12 100 Mcg Tab) 500 mcg PO DAILY [facility] PRN Reason: Protocol Last Admin: 07/28/17 09:56 Dose: 500 mcg Ferrous Sulfate (Feosol) 324 mg PO DAILY [facility] Last Admin: 07/28/17 09:55 Dose: 324 mg Gabapentin (Neurontin) 300 mg PO DAILY PRN; Protocol PRN Reason: Pain, moderate (4-7) Hydrocortisone (Cortenema) 100 mg RC DAILY [facility] Last Admin: 07/28/17 10:28 Dose: 100 mg Mercaptopurine (6-Mp) 50 mg PO DAILY [facility] Last Admin: 07/28/17 14:08 Dose: 50 mg Mesalamine (Rowasa Enema) 4 gm RC HS [facility] PRN Reason: Protocol Last Admin: 07/27/17 21:25 Dose: 4 gm Mesalamine (Asacol Hd 800mg) 800 mg PO TID [facility] Last Admin: 07/28/17 13:09 Dose: 800 mg Multivitamins/Minerals (Therapeutic-M Tab) 1 tab PO DAILY [facility] PRN Reason: Protocol Last Admin: 07/28/17 09:55 Dose: 1 tab Pantoprazole Sodium (Protonix Ec Tab) 40 mg PO 0600 [facility] Last Admin: 07/28/17 05:38 Dose: 40 mg Potassium Chloride (K-Dur 20 Meq Er Tab) 20 meq PO 0800 [facility] Last Admin: 07/28/17 08:05 Dose: 20 meq Potassium Chloride (K-Dur 20 Meq Er Tab) 20 meq PO 1800 [facility] Last Admin: 07/27/17 17:20 Dose: 20 meq Prednisone (Prednisone Tab) 20 mg PO BID [facility] - Labs Labs: 07/27/17 06:30 07/27/17 06:30 Attending/Attestation - Attestation I have personally seen and examined this patient.: Yes I have fully participated in the care of the patient.: Yes I have reviewed all pertinent clinical information, including history, physical exam and plan: Yes Notes (Text): 07/28/17 15:43 attending note; Patient seen and examined in TCU with GI attending. Diarrhea improved. Denies any blood in the stool. Tolerating regular diet. Denies any other complaints. Patient is a 87 year old female with past medical history of ulcerative colitis , CMV colitis, dyslipidemia and postherpetic neuralgia who presented with complaint of rectal bleeding and generalized weakness. currently on IV steroids. Will change to po prednisone. Started on po 6-MP as per GI. Continue mesalamine enema HS and cortenema AM. biopsy results pending. Needs outpatient Remicade infusion upon discharge. continue physical therapy in TCU. alley worker evaluation appreciated. Upon discharge The patient will follow-up with PMD Dr. Peterson.
--- NOTE | 2017-07-28 17:33 | CP.PCM.PN ---
Subjective - Date & Time of Evaluation Date of Evaluation: 07/28/17 Time of Evaluation: 10:40 - Subjective Subjective: Seen and examined at the bedside earlier today, chart reviewed. No reports of acute overnight events. Last night patient had 4 bowel movements and only had one this morning still slightly loose but no reports of bleeding. Tolerating oral intake. Denies nausea, vomiting, or abdominal pain. Colon pathology reviewed shows chronic active colitis with ulceration and no dysplasia or granuloma or malignancy. CMV results still pending. Objective - Vital Signs/Intake and Output Vital Signs (last 24 hours): Temp Pulse Resp BP Pulse Ox 97.3 F L 61 18 122/62 100 07/28/17 16:00 07/28/17 16:00 07/28/17 16:00 07/28/17 16:00 07/28/17 16:00 Intake and Output: 07/28/17 07/28/17 06:59 18:59 Intake Total 420 Balance 420 - Medications Medications: Current Medications Atorvastatin Calcium (Lipitor) 20 mg PO DIN [facility] PRN Reason: Protocol Last Admin: 07/28/17 17:18 Dose: 20 mg Carbamazepine (Tegretol) 100 mg PO DAILY [facility] PRN Reason: Protocol Last Admin: 07/28/17 09:55 Dose: 100 mg Cyanocobalamin (Vitamin B12 100 Mcg Tab) 500 mcg PO DAILY [facility] PRN Reason: Protocol Last Admin: 07/28/17 09:56 Dose: 500 mcg Ferrous Sulfate (Feosol) 324 mg PO DAILY [facility] Last Admin: 07/28/17 09:55 Dose: 324 mg Gabapentin (Neurontin) 300 mg PO DAILY [facility]N; Protocol PRN Reason: Pain, moderate (4-7) Hydrocortisone (Cortenema) 100 mg RC DAILY [facility] Last Admin: 07/28/17 10:28 Dose: 100 mg Mercaptopurine (6-Mp) 50 mg PO DAILY [facility] Last Admin: 07/28/17 14:08 Dose: 50 mg Mesalamine (Rowasa Enema) 4 gm RC HS [facility] PRN Reason: Protocol Last Admin: 07/27/17 21:25 Dose: 4 gm Mesalamine (Asacol Hd 800mg) 800 mg PO TID [facility] Last Admin: 07/28/17 13:09 Dose: 800 mg Multivitamins/Minerals (Therapeutic-M Tab) 1 tab PO DAILY [facility] PRN Reason: Protocol Last Admin: 07/28/17 09:55 Dose: 1 tab Pantoprazole Sodium (Protonix Ec Tab) 40 mg PO 0600 [facility] Last Admin: 07/28/17 05:38 Dose: 40 mg Potassium Chloride (K-Dur 20 Meq Er Tab) 20 meq PO 0800 [facility] Last Admin: 07/28/17 08:05 Dose: 20 meq Potassium Chloride (K-Dur 20 Meq Er Tab) 20 meq PO 1800 [facility] Last Admin: 07/28/17 17:18 Dose: 20 meq Prednisone (Prednisone Tab) 20 mg PO BID [facility] Last Admin: 07/28/17 17:18 Dose: 20 mg - Labs Labs: 07/27/17 06:30 07/27/17 06:30 - Constitutional Appears: No Acute Distress - Head Exam Head Exam: NORMOCEPHALIC - Eye Exam Eye Exam: Normal appearance. absent: Scleral icterus - ENT Exam ENT Exam: Mucous Membranes Moist - Respiratory Exam Respiratory Exam: NORMAL BREATHING PATTERN. absent: Respiratory Distress - Cardiovascular Exam Cardiovascular Exam: +S1, +S2 - GI/Abdominal Exam GI & Abdominal Exam: Soft, Normal Bowel Sounds. absent: Guarding, Tenderness, Rebound - Extremities Exam Extremities Exam: absent: Calf Tenderness, Pedal Edema - Neurological Exam Neurological Exam: Alert, Awake, Oriented x3 Assessment and Plan - Assessment and Plan (Free Text) Assessment: Assessment: Rectal bleeding may be secondary to Exacerbation of ulcerative colitis, s/p flexsig s/p BX show chronic active colitis with ulcer, no dysplasia or malignancy or granuloma, CMV slides pending Noncompliance with medication H/O C. difficile colitis History of CMV colitis Postherpetic neuralgia Anemia Plan: regular diet Fu CMV smears Trend H&H and monitor GI bleeding on PPI DVT prophylaxis start oral steroids: Prednisone 20 mg PO BID continue Melasamine/ cortenema on Iron supplement Add 6MP 50 mg PO daily Prior to discharge arrangements to be made for Remicade infusions,day after discharge, discussed with medical team. Seen and discussed with Dr. Shrestha.
[2017-07-29] MEDS: Pantoprazole 40 mg EC Tab PO SCH (06:01)
[2017-07-29] MEDS: Potassium Chloride 20 mEq ER Tab PO SCH ×2 (08:04→17:27)
[2017-07-29] MEDS: carBAMazepine Chew Tab 100 MG Chew Tab PO SCH (08:05)
[2017-07-29] MEDS: Multivitamin With Minerals Tab PO SCH (10:03)
[2017-07-29] MEDS: Mesalamine 800 mg DR Tab PO SCH ×3 (10:07→17:26)
[2017-07-30] MEDS: Pantoprazole 40 mg EC Tab PO SCH (05:41)
[2017-07-30] MEDS: Potassium Chloride 20 mEq ER Tab PO SCH ×2 (08:29→17:59)
[2017-07-30] MEDS: carBAMazepine Chew Tab 100 MG Chew Tab PO SCH (08:30)
[2017-07-30] MEDS: Mesalamine 800 mg DR Tab PO SCH ×3 (10:23→17:57)
[2017-07-30] MEDS: Multivitamin With Minerals Tab PO SCH (10:23)
--- NOTE | 2017-07-30 20:35 | CP.PCM.PN ---
<Akshat Soto - Last Filed: 07/30/17 20:26> Subjective - Date & Time of Evaluation Date of Evaluation: 07/30/17 Time of Evaluation: 09:15 - Subjective Subjective: PGY1 Medicine Note for Dr. Espinoza Patient seen and examined at bedside this morning. No acute events overnight. Patient had one, non-bloody loose bowel movement. She has no complaints at this time. Denies fevers, chills, nausea, vomiting, chest pain, shortness of breath, palpitations, abdominal pain or headaches. Objective - Vital Signs/Intake and Output Vital Signs (last 24 hours): Temp Pulse Resp BP Pulse Ox 98.2 F 88 18 111/61 97 07/29/17 16:00 07/29/17 16:27 07/29/17 16:00 07/29/17 16:00 07/29/17 16:27 - Medications Medications: Current Medications Atorvastatin Calcium (Lipitor) 20 mg PO DIN [facility] PRN Reason: Protocol Last Admin: 07/30/17 17:56 Dose: 20 mg Carbamazepine (Tegretol) 100 mg PO 0800 [facility] PRN Reason: Protocol Last Admin: 07/30/17 08:30 Dose: 100 mg Cyanocobalamin (Vitamin B12 100 Mcg Tab) 500 mcg PO DAILY [facility] PRN Reason: Protocol Last Admin: 07/30/17 10:26 Dose: 500 mcg Ferrous Sulfate (Feosol) 324 mg PO 0800 [facility] PRN Reason: Protocol Last Admin: 07/30/17 08:28 Dose: 324 mg Gabapentin (Neurontin) 300 mg PO DAILY PRN; Protocol PRN Reason: Pain, moderate (4-7) Last Admin: 07/30/17 17:57 Dose: 300 mg Hydrocortisone (Cortenema) 100 mg RC DAILY [facility] Last Admin: 07/30/17 10:36 Dose: 100 mg Mercaptopurine (6-Mp) 50 mg PO DAILY [facility] Last Admin: 07/30/17 10:24 Dose: 50 mg Mesalamine (Rowasa Enema) 4 gm RC HS [facility] PRN Reason: Protocol Last Admin: 07/29/17 21:10 Dose: 4 gm Mesalamine (Asacol Hd 800mg) 800 mg PO TID [facility] Last Admin: 07/30/17 17:57 Dose: 800 mg Multivitamins/Minerals (Therapeutic-M Tab) 1 tab PO DAILY [facility] PRN Reason: Protocol Last Admin: 07/30/17 10:23 Dose: 1 tab Pantoprazole Sodium (Protonix Ec Tab) 40 mg PO 0600 [facility] Last Admin: 07/30/17 05:41 Dose: 40 mg Potassium Chloride (K-Dur 20 Meq Er Tab) 20 meq PO 0800 [facility] Last Admin: 07/30/17 08:29 Dose: 20 meq Potassium Chloride (K-Dur 20 Meq Er Tab) 20 meq PO 1800 [facility] Last Admin: 07/30/17 17:59 Dose: 20 meq Prednisone (Prednisone Tab) 20 mg PO 0800,1800 [facility] PRN Reason: Protocol Last Admin: 07/30/17 17:57 Dose: 20 mg - Labs Labs: 07/27/17 06:30 07/27/17 06:30 - Constitutional Appears: Non-toxic, No Acute Distress - Head Exam Head Exam: ATRAUMATIC, NORMOCEPHALIC - Eye Exam Eye Exam: EOMI, Normal appearance - ENT Exam ENT Exam: Mucous Membranes Moist - Neck Exam Neck Exam: absent: Lymphadenopathy - Respiratory Exam Respiratory Exam: Clear to Ausculation Bilateral, NORMAL BREATHING PATTERN. absent: Accessory Muscle Use, Rales, Rhonchi, Wheezes, Respiratory Distress - Cardiovascular Exam Cardiovascular Exam: REGULAR RHYTHM, +S1, +S2 - Extremities Exam Extremities Exam: absent: Calf Tenderness, Pedal Edema - Neurological Exam Neurological Exam: Alert, Awake, Oriented x3 - Psychiatric Exam Psychiatric exam: Normal Affect, Normal Mood - Skin Skin Exam: Dry, Warm Assessment and Plan - Assessment and Plan (Free Text) Assessment: 87 yo F with PMH of ulcerative colitis, c. diff colitis, CMV colitis, PNA, HLD, postherpetic neuralgia admitted for evaluation and treatment for UC flare, s/p flexible sigmoiodoscopy showing diffuse inflammation, awaiting CMV biopsy, currently on therapy for UC flare. Physical therapy eval recommended CA[facility], admitted to TCU for rehab Plan: Generalized weakness: 2/2 deconditioning vs anemia 2/2 underlying UC flare, rule out malignancy - Transferred to TCU for rehab - Hgb stable - iron studies show iron deficiency anemia. Given 1 dose of venofer 200 mg yesterday. on feosol. - CT chest, abd, pelvis shows left medial breast mass, 1.2x1.2x2.1 cm. Sclerotic bone lesion at T5 vertebral body. Consider mammography and bone scan. Will discuss with patient regarding further testing inpatient vs outpatient. Spoke with Dr Peterson and updated him regarding patient's findings. Pt wants outpatient follow up. - GI consulted. Appreciate recs. - Mesalamine rectal and PO, prednisone 30 mg PO BID, Hydrocortisone enema per GI. Started Mercaptopurine 50 mg PO daily. - Neurology approved for remicade treatment currently. unable to provide inpatient due to large patient copayment - transfuse to keep Hgb > 7 - Protonix Diarrhea: 2/2 ulcerative colitis vs CMV colitis - Pt has a history of CMV colitis, ulcerative colitis, c. diff colitis - C diff negative - improving - Mesalamine rectal and PO, prednisone, hydrocotisone enema, mercaptopurine - TSH normal - Monitor - flexible sigmoidoscopy shows diffuse inflammation. - CMV biopsy negative Hypokalemia: 2/2 diarrhea - Kdur 40 Po given - Daily Kdur 40 meq HLD - Cont Lipitor H/o HSV, postherpetic neuralgia - Cont carbemazepine, neurontin GI/DVT PPx - Protonix - SCDs Dispo: Continue Rehab. No update at this time. Case discussed with Dr. Olga Oden Brittany PGY1 <Demetris Espinoza - Last Filed: 07/31/17 09:48> Objective - Vital Signs/Intake and Output Vital Signs (last 24 hours): Temp Pulse Resp BP Pulse Ox 97.9 F 76 16 114/73 94 L 07/31/17 06:00 07/31/17 06:00 07/31/17 06:00 07/31/17 06:00 07/31/17 06:00 - Medications Medications: Current Medications Atorvastatin Calcium (Lipitor) 20 mg PO DIN [facility] PRN Reason: Protocol Last Admin: 07/30/17 17:56 Dose: 20 mg Carbamazepine (Tegretol) 100 mg PO 0800 [facility] PRN Reason: Protocol Last Admin: 07/31/17 08:37 Dose: 100 mg Cyanocobalamin (Vitamin B12 100 Mcg Tab) 500 mcg PO DAILY [facility] PRN Reason: Protocol Last Admin: 07/31/17 09:13 Dose: 500 mcg Ferrous Sulfate (Feosol) 324 mg PO 0800 [facility] PRN Reason: Protocol Last Admin: 07/31/17 08:36 Dose: 324 mg Gabapentin (Neurontin) 300 mg PO DAILY PRN; Protocol PRN Reason: Pain, moderate (4-7) Last Admin: 07/30/17 17:57 Dose: 300 mg Hydrocortisone (Cortenema) 100 mg RC DAILY [facility] Last Admin: 07/31/17 09:12 Dose: 100 mg Mercaptopurine (6-Mp) 50 mg PO DAILY [facility] Last Admin: 07/31/17 09:32 Dose: 50 mg Mesalamine (Rowasa Enema) 4 gm RC HS [facility] PRN Reason: Protocol Last Admin: 07/30/17 21:51 Dose: 4 gm Mesalamine (Asacol Hd 800mg) 800 mg PO TID [facility] Last Admin: 07/31/17 09:12 Dose: 800 mg Multivitamins/Minerals (Therapeutic-M Tab) 1 tab PO DAILY [facility] PRN Reason: Protocol Last Admin: 07/31/17 09:12 Dose: 1 tab Pantoprazole Sodium (Protonix Ec Tab) 40 mg PO 0600 [facility] Last Admin: 07/31/17 05:24 Dose: 40 mg Potassium Chloride (K-Dur 20 Meq Er Tab) 20 meq PO 0800 [facility] Last Admin: 07/31/17 08:37 Dose: 20 meq Potassium Chloride (K-Dur 20 Meq Er Tab) 20 meq PO 1800 [facility] Last Admin: 07/30/17 17:59 Dose: 20 meq Prednisone (Prednisone Tab) 20 mg PO 0800,1800 [facility] PRN Reason: Protocol Last Admin: 07/31/17 08:37 Dose: 20 mg - Labs Labs: 07/27/17 06:30 07/27/17 06:30 Attending/Attestation - Attestation I have personally seen and examined this patient.: Yes I have fully participated in the care of the patient.: Yes I have reviewed all pertinent clinical information, including history, physical exam and plan: Yes Notes (Text): 07/31/17 09:46 attending note; Patient seen and examined with resident in TCU. Diarrhea improved. Denies any blood in the stool. Tolerating regular diet. Denies any other complaints. Patient is a 87 year old female with past medical history of ulcerative colitis , CMV colitis, dyslipidemia and postherpetic neuralgia who presented with complaint of rectal bleeding and generalized weakness. currently on po prednisone. Started on po 6-MP. Continue mesalamine enema HS and cortenema AM. CMV is negative. Needs outpatient Remicade infusion upon discharge. continue physical therapy in TCU. broke worker evaluation appreciated. Possible discharge home tomorrow. Upon discharge The patient will follow-up with PMD Dr. Peterson.
[2017-07-31] MEDS: Pantoprazole 40 mg EC Tab PO SCH (05:24)
[2017-07-31] MEDS: Potassium Chloride 20 mEq ER Tab PO SCH ×2 (08:37→18:11)
[2017-07-31] MEDS: carBAMazepine Chew Tab 100 MG Chew Tab PO SCH (08:37)
[2017-07-31] MEDS: Multivitamin With Minerals Tab PO SCH (09:12)
[2017-07-31] MEDS: Mesalamine 800 mg DR Tab PO SCH ×3 (09:12→18:10)
[2017-07-31 15:22] VITALS: O2SAT 97
[2017-07-31 17:20] VITALS: RESP 18
[2017-08-01] MEDS: Pantoprazole 40 mg EC Tab PO SCH (05:19)
--- NOTE | 2017-08-01 06:56 | CP.PCM.PN ---
Objective - Vital Signs/Intake and Output Vital Signs (last 24 hours): Temp Pulse Resp BP Pulse Ox 98.2 F 85 18 112/64 97 07/31/17 16:00 07/31/17 16:00 07/31/17 16:00 07/31/17 16:00 07/31/17 16:00 - Medications Medications: Current Medications Atorvastatin Calcium (Lipitor) 20 mg PO DIN [facility] PRN Reason: Protocol Last Admin: 07/31/17 18:11 Dose: 20 mg Carbamazepine (Tegretol) 100 mg PO 0800 [facility] PRN Reason: Protocol Last Admin: 07/31/17 08:37 Dose: 100 mg Cyanocobalamin (Vitamin B12 100 Mcg Tab) 500 mcg PO DAILY [facility] PRN Reason: Protocol Last Admin: 07/31/17 09:13 Dose: 500 mcg Ferrous Sulfate (Feosol) 324 mg PO 0800 [facility] PRN Reason: Protocol Last Admin: 07/31/17 08:36 Dose: 324 mg Gabapentin (Neurontin) 300 mg PO DAILY PRN; Protocol PRN Reason: Pain, moderate (4-7) Last Admin: 07/30/17 17:57 Dose: 300 mg Hydrocortisone (Cortenema) 100 mg RC DAILY [facility] Last Admin: 07/31/17 09:12 Dose: 100 mg Mercaptopurine (6-Mp) 50 mg PO DAILY [facility] Last Admin: 07/31/17 09:32 Dose: 50 mg Mesalamine (Rowasa Enema) 4 gm RC HS [facility] PRN Reason: Protocol Last Admin: 07/31/17 22:07 Dose: 4 gm Mesalamine (Asacol Hd 800mg) 800 mg PO TID [facility] Last Admin: 07/31/17 18:10 Dose: 800 mg Multivitamins/Minerals (Therapeutic-M Tab) 1 tab PO DAILY [facility] PRN Reason: Protocol Last Admin: 07/31/17 09:12 Dose: 1 tab Pantoprazole Sodium (Protonix Ec Tab) 40 mg PO 0600 [facility] Last Admin: 08/01/17 05:19 Dose: 40 mg Potassium Chloride (K-Dur 20 Meq Er Tab) 20 meq PO 0800 [facility] Last Admin: 07/31/17 08:37 Dose: 20 meq Potassium Chloride (K-Dur 20 Meq Er Tab) 20 meq PO 1800 [facility] Last Admin: 07/31/17 18:11 Dose: 20 meq Prednisone (Prednisone Tab) 20 mg PO 0800,1800 [facility] PRN Reason: Protocol Last Admin: 07/31/17 18:11 Dose: 20 mg - Labs Labs: 07/27/17 06:30 07/31/17 10:30
[2017-08-01 07:02] VITALS: BP 106/68; PULSE 77; TEMP 98.3
[2017-08-01] MEDS: Potassium Chloride 20 mEq ER Tab PO SCH (07:53)
[2017-08-01] MEDS: carBAMazepine Chew Tab 100 MG Chew Tab PO SCH (07:54)
--- NOTE | 2017-08-01 08:10 | CP.PCM.DIS ---
<Jesse Turner - Last Filed: 08/01/17 13:09> Provider - Provider Date of Admission: 07/25/17 16:14 Attending physician: Benjamín Millan MD Primary care physician: Matt Peterson MD Consults: GI: Fady Time Spent in preparation of Discharge (in minutes): 40 Diagnosis - Discharge Diagnosis (1) Anemia Status: Acute (2) CMV (cytomegalovirus infection) Status: Acute (3) Rectal bleeding Status: Acute (4) Ulcerative colitis, acute Status: Acute Hospital Course - Lab Results Lab Results: Most Recent Lab Values WBC 11.7 10^3/ul (4.5-11.0) H D 07/27/17 06:30 RBC 3.39 10^6/uL (3.5-6.1) L 07/27/17 06:30 Hgb 9.3 g/dL (12.0-16.0) L 07/27/17 06:30 Hct 28.0 % (36.0-48.0) L 07/27/17 06:30 MCV 82.6 fl (80.0-105.0) 07/27/17 06:30 MCH 27.4 pg (25.0-35.0) 07/27/17 06:30 MCHC 33.2 g/dl (31.0-37.0) 07/27/17 06:30 RDW 16.8 % (11.5-14.5) H 07/27/17 06:30 Plt Count 423 10^3/uL (120.0-450.0) 07/27/17 06:30 MPV 9.0 fl (7.0-11.0) 07/27/17 06:30 Gran % 63.9 % (50.0-68.0) 07/27/17 06:30 Lymph % (Auto) 29.9 % (22.0-35.0) 07/27/17 06:30 [place] % (Auto) 5.9 % (1.0-6.0) 07/27/17 06:30 Eos % (Auto) 0.1 % (1.5-5.0) L 07/27/17 06:30 Baso % (Auto) 0.2 % (0.0-3.0) 07/27/17 06:30 Gran # 7.46 (1.4-6.5) H 07/27/17 06:30 Lymph # (Auto) 3.5 (1.2-3.4) H 07/27/17 06:30 [place] # (Auto) 0.7 (0.1-0.6) H 07/27/17 06:30 Eos # (Auto) 0.0 (0.0-0.7) 07/27/17 06:30 Baso # (Auto) 0.02 K/mm3 (0.0-2.0) 07/27/17 06:30 Sodium 142 mmol/L (132-148) 07/27/17 06:30 Potassium 4.1 mmol/L (3.6-5.0) 07/31/17 10:30 Chloride 108 mmol/L (98-107) H 07/27/17 06:30 Carbon Dioxide 24 mmol/L (21-33) 07/27/17 06:30 Anion Gap 13 (10-20) 07/27/17 06:30 BUN 11 mg/dL (7-21) 07/27/17 06:30 Creatinine 0.7 mg/dl (0.7-1.2) 07/27/17 06:30 Est GFR ( Amer) > 60 07/27/17 06:30 Est GFR (Non-Af Amer) > 60 07/27/17 06:30 Random Glucose 95 mg/dL (70-110) 07/27/17 06:30 Calcium 9.0 mg/dL (8.4-10.5) 07/27/17 06:30 - Hospital Course Hospital Course: 87 year old female, with PMH ulcerative colitis, C diff colitis, CMV colitis, HLD, postherpetic neuralgia, noncompliance, presents for [facility]BPR for past 2 weeks. Pt admitted for UC flare, anemia, generalized weakness, weight loss. Pt treated for PO and rectal mesalamine, and PO and rectal hydrocortisone. Flex sigmoidoscopy showed diffuse inflammation, sent for CMV biopsy. Pt given venofer 200 mg IV and then started on PO iron for anemia. CT abd chest pelvis showed breast mass and sclerotic bone lesion on T12, discussed findings with patient. She states that she wants outpatient follow up for mammogram and bone scan. PT eval recommended CAIN, pt discharged to TCU for gaining her strength back and physical therapy rehab. Patient stayed a total of 6 days in the TCU. She continue physical therapy and medical management. She had a few episodes of loose bowel movements but they were nonbloody. The patient was deemed medically stable for discharge on 08/01. Her home medications were modified by GI and primary. The changes are detailed in medication reconciliation. Patient is to take prednisone taper as prescribed. She is to follow up with GI and PMD within 1-2 weeks Patient will have outpatient infusions of remicade starting 08/04. (This is a summary of the hospital stay. Please refer to EMR for more details.) Discharge Exam - Head Exam Head Exam: ATRAUMATIC, NORMOCEPHALIC - Eye Exam Eye Exam: EOMI, Normal appearance Pupil Exam: PERRL - ENT Exam ENT Exam: Mucous Membranes Moist - Respiratory Exam Respiratory Exam: Clear to PA & Lateral, NORMAL BREATHING PATTERN - Cardiovascular Exam Cardiovascular Exam: REGULAR RHYTHM, +S1, +S2 - GI/Abdominal Exam GI & Abdominal Exam: Normal Bowel Sounds, Soft. absent: Tenderness - Extremities Exam Extremities exam: normal capillary refill, pedal pulses present - Back Exam Back exam: absent: CVA tenderness (L), CVA tenderness (R) - Neurological Exam Neurological exam: Alert, CN II-XII Intact, Oriented x3 - Psychiatric Exam Psychiatric exam: Normal Affect, Normal Mood - Skin Skin Exam: Dry, Intact, Normal Color, Warm Discharge Plan - Discharge Medications Prescriptions: Atorvastatin [Lipitor] 20 mg PO DIN #30 tab carBAMazepine [TEGretol-XR] 100 mg PO DAILY #30 ter Cyanocobalamin [Vitamin B12 100 mcg Tab] 500 mcg PO DAILY #30 tab Ferrous Sulfate [Feosol] 324 mg PO 0800 #30 ect Mercaptopurine [6-Mp] 50 mg PO DAILY #30 tab Mesalamine [Rowasa Enema] 4 gm RC HS #30 nma Mesalamine [Asacol HD 800mg] 800 mg PO TID #90 tcp Pantoprazole [Protonix EC Tab] 40 mg PO 0600 #30 ect predniSONE [predniSONE Tab] See Taper PO DAILY #35 tab - Follow Up Plan Condition: GOOD Disposition: HOME/ ROUTINE Instructions: Cytomegalovirus, Anemia Caused by Low Iron, Adult (DC), Ulcerative Colitis (DC), Bloody Stools, Adult (DC) Additional Instructions: 1. Follow up with Dr Shrestha, GI doctor, the day after discharge for remicade infusion. 2. Follow up with Dr. Peterson, primary care doctor Referrals: Matt Peterson MD [Primary Care Provider] - <Benjamín Millan - Last Filed: 08/01/17 14:27> Provider - Provider Date of Admission: 07/25/17 16:14 Attending physician: Benjamín Millan MD Primary care physician: Matt Peterson MD Hospital Course - Lab Results Lab Results: Most Recent Lab Values WBC 11.7 10^3/ul (4.5-11.0) H D 07/27/17 06:30 RBC 3.39 10^6/uL (3.5-6.1) L 07/27/17 06:30 Hgb 9.3 g/dL (12.0-16.0) L 07/27/17 06:30 Hct 28.0 % (36.0-48.0) L 07/27/17 06:30 MCV 82.6 fl (80.0-105.0) 07/27/17 06:30 MCH 27.4 pg (25.0-35.0) 07/27/17 06:30 MCHC 33.2 g/dl (31.0-37.0) 07/27/17 06:30 RDW 16.8 % (11.5-14.5) H 07/27/17 06:30 Plt Count 423 10^3/uL (120.0-450.0) 07/27/17 06:30 MPV 9.0 fl (7.0-11.0) 07/27/17 06:30 Gran % 63.9 % (50.0-68.0) 07/27/17 06:30 Lymph % (Auto) 29.9 % (22.0-35.0) 07/27/17 06:30 [place] % (Auto) 5.9 % (1.0-6.0) 07/27/17 06:30 Eos % (Auto) 0.1 % (1.5-5.0) L 07/27/17 06:30 Baso % (Auto) 0.2 % (0.0-3.0) 07/27/17 06:30 Gran # 7.46 (1.4-6.5) H 07/27/17 06:30 Lymph # (Auto) 3.5 (1.2-3.4) H 07/27/17 06:30 [place] # (Auto) 0.7 (0.1-0.6) H 07/27/17 06:30 Eos # (Auto) 0.0 (0.0-0.7) 07/27/17 06:30 Baso # (Auto) 0.02 K/mm3 (0.0-2.0) 07/27/17 06:30 Sodium 142 mmol/L (132-148) 07/27/17 06:30 Potassium 4.1 mmol/L (3.6-5.0) 07/31/17 10:30 Chloride 108 mmol/L (98-107) H 07/27/17 06:30 Carbon Dioxide 24 mmol/L (21-33) 07/27/17 06:30 Anion Gap 13 (10-20) 07/27/17 06:30 BUN 11 mg/dL (7-21) 07/27/17 06:30 Creatinine 0.7 mg/dl (0.7-1.2) 07/27/17 06:30 Est GFR ( Amer) > 60 07/27/17 06:30 Est GFR (Non-Af Amer) > 60 07/27/17 06:30 Random Glucose 95 mg/dL (70-110) 07/27/17 06:30 Calcium 9.0 mg/dL (8.4-10.5) 07/27/17 06:30 Attending/Attestation - Attestation I have personally seen and examined this patient.: Yes I have fully participated in the care of the patient.: Yes I have reviewed all pertinent clinical information, including history, physical exam and plan: Yes Notes (Text): 08/01/17 14:23 87 year old female with past medical history of ulcerative colitis, CMV colitis , dyslipidemia and postherpetic neuralgia who presented with rectal bleeding and generalized weakness. She was seen by GI and started on steroids and mesalamine. She was also on cortenema and mesalamine enema and then started on 6-MP. She had flex sigmoin. Biopsy was negative for CMV. She was in TCU for physical therapy. Overall her symptoms have improved. She is discharged home to follow up with her pmd. Follow up with GI. Outpatient remicade infusion. CT findings were discussed with patient as above who states she will follow up with pmd for bone scan and mammogram. Benjamín Millan MD Hospitalist.
[2017-08-01] MEDS: Multivitamin With Minerals Tab PO SCH (09:55)
[2017-08-01] MEDS: Mesalamine 800 mg DR Tab PO SCH ×2 (09:55→13:13)
== END 2017-08-01 14:42 | disposition home or self-care (01) | DRG 945 ==
LOC: TRCU 16:14
PROVIDERS: ADMIT Internal Medicine; ATTEND Internal Medicine
PROC: F07Z9ZZ Gait Training/Functional Ambulation Treatment (ICD-10-PCS; principal; 2017-07-26)
PROC: F08Z4ZZ Home Management Treatment (ICD-10-PCS; 2017-07-26)
DX: R53.1 Weakness (principal); K51.90 Ulcerative colitis, unspecified, without complications; B02.29 Other postherpetic nervous system involvement; E78.5 Hyperlipidemia, unspecified; E78.00 Pure hypercholesterolemia, unspecified; D50.9 Iron deficiency anemia, unspecified; E87.6 Hypokalemia; Z91.19 Patient's noncompliance with other medical treatment and regimen; Z91.14 Patient's other noncompliance with medication regimen; Z87.01 Personal history of pneumonia (recurrent); Z87.891 Personal history of nicotine dependence

== ENCOUNTER 2018-01-30 07:20 | Day surgery (SDC) | payer MEDICARE ==
[2018-01-30 07:52] VITALS: BMI 27.1
[2018-01-30] MEDS ORDERED: Sodium Chloride 0.9% 1,000 ML IV SCH (09:15)
[2018-01-30] MEDS ORDERED: Propofol 10 mg/ml Inj (20 ML) ONE (09:23)
[2018-01-30] MEDS ORDERED: Methylene Blue 10 mg/mL(10ml) IV ONE (09:28)
[2018-01-30 10:24] VITALS: O2SAT 95
[2018-01-30 10:39] VITALS: BP 129/81; PULSE 76; RESP 16; TEMP 97.6
== END 2018-01-30 11:14 | disposition home or self-care (01) ==
LOC: ENDO 07:20
PROVIDERS: ATTEND Internal Medicine Gastroenterology
DX: K51.00 Ulcerative (chronic) pancolitis without complications (principal); K57.30 Diverticulosis of large intestine without perforation or abscess without bleeding; K64.0 First degree hemorrhoids; K64.4 Residual hemorrhoidal skin tags; K63.5 Polyp of colon

== ENCOUNTER 2018-03-20 07:46 | Outpatient (CLI) | payer MEDICARE | END 2018-03-20 07:47 | disposition home or self-care (01) | LOC: LAB 07:46 ==

== ENCOUNTER 2018-05-16 07:48 | Outpatient (CLI) | payer MEDICARE | END 2018-05-16 07:49 | disposition home or self-care (01) | LOC: LAB 07:48 ==

== ENCOUNTER 2018-06-09 09:41 | Outpatient (CLI) | payer MEDICARE | END 2018-06-09 09:42 | disposition home or self-care (01) | LOC: RAD 09:41 | DX: Z13.820 Encounter for screening for osteoporosis (principal) ==

== ENCOUNTER 2018-07-10 08:48 | Outpatient (CLI) | payer MEDICARE | END 2018-07-10 08:49 | disposition home or self-care (01) | LOC: LAB 08:48 ==